=== PATIENT | female | born 1935 | race Caucasian/White ===

== ENCOUNTER 2019-06-15 06:53 | Inpatient (IN) ==
[2019-06-15] MEDS ORDERED: CATAPRES TAB 0.2 MG PO ONE (07:03)
[2019-06-15] MEDS ORDERED: OTBS NS XX ONE (07:10)
[2019-06-15] MEDS ORDERED: D50W ABBOJECT SYR ONE (07:13)
--- NOTE | 2019-06-15 07:13 | DR.DIZZY ---
HPI Time seen Time Seen by Provider: 06/15/19 07:02 Complaint Chief Complaint Doctor Comments: Pt presented for AMS. Pt unable to provide history. Family reports pt woke up this morning not feeling well, nauseated and AMS. Pt was taken of her BP medication a month ago and recently had tony boots removed. Family denies any fever. Chief Complaint:: AMS Nurses Notes Reviewed Nurses Notes Review: Yes Source History Provided: Family Member Mode of Arrival Mode of Arrival: Ambulatory Timing Came on: Suddenly Symptom Onset: Unknown Duration Duration: Since Onset Duration: Hours Context Stroke Symptoms: Acute confusion PMH PMH Past Medical History: Arthritis, Hypertension and Hypothyroidism Past Surgical History: Yes Surgical History: Ortho Surgery Family History Family Medical History: [place] Social History Do you use any recreational Drugs:: No Lives With: Family Lives Where: Home ROS Review of Systems Constitutional: Malaise and Weakness Gastrointestinal/Abdominal: Nausea Unable to Obtain Due To: Altered mental status PE Vital Signs Vitals: Temperature 99.1 F Pulse Rate [Right Radial] 78 Pulse Rate 78 Respiratory Rate 22 Blood Pressure [Right Arm] 187/88 Blood Pressure 212/111 O2 Sat by Pulse Oximetry 83 General Limitations: Altered Mental Status General Appearance: Lethargic, In Distress and Other (chronically ill appearing, volume overload) Head Head Exam: Normal Inspection and Normocephalic Eyes Eye exam: Normal Appearance, PERRL (2mm sluggish) and EOMI Pupils: Regular, Round: Bilateral Sclera/Conjunctival: Normal Inspection: Bilateral ENT ENT Exam: Normal Exam and Mucous Membranes Dry Neck Neck Exam: Normal Inspection Respiratory Respiratory Exam: negative Normal Lung Sounds Bilat and Respiratory Distress Respiratory Exam: Bilateral: Clear to Auscultation, Left: Decreased Breath Sounds and Lower: Decreased Breath Sounds Cardiovascular Cardiovascular Exam: Regular Rate, Normal Rhythm and Normal Heart Sounds Abdominal Exam Abdominal Exam: Normal Bowel Sounds, Soft and Dimnished Bowel Sounds Extremeties Extremities Exam: Edema (ble) Neurologic Neurological Exam: Alert and Other (respond to verbal stimuli, does not follow commands) Patient Oriented To: negative Person, Place and Time Speech: Other (uanble to access) Cerebellar Function: Other (unable to access) Psychiatric Psychiatric Exam: Other (uable to access) Skin Skin Exam: Warm, Dry and Intact MDM Additional Information Obtained Additional Information Obtained From: Old Records and Family Differential Diagnosis Differential Diagnosis: CVA, Dehydration, Dysrhythmia, Electrolyte disorder and Myocardial infarction COURSE Reevaluation 1st: Unchanged (BP still elevated. Pt lethargic. BNP 1330 with left pleural effusion) 2nd: Improved (BP improving. D/w results with family and pt and will admit) Consultation Consultation Comments: 08:[address] Kohli and will admit and seen in hospital Education/Counseling Education/Counseling: Patient, Family, Education and Counseling Educated On: Treatment, Diagnosis, Prognosis and Needs for Follow Up (pcp and manager hematology) ROR Labs Reviewed Laboratory Results Reviewed?: Yes Result Diagrams: 06/15/19 07:09 06/15/19 07:09 Laboratory: WBC 6.7 X10^3/uL (3.6-10.0) 06/15/19 07:09 RBC 3.47 X10^6/uL (3.5-5.4) L 06/15/19 07:09 Hgb 10.8 g/dL (12.0-16.0) L 06/15/19 07:09 Hct 30.9 % (36.0-47.0) L 06/15/19 07:09 MCV 88.9 fL (80.0-100.0) 06/15/19 07:09 MCH 31.0 pg (27.0-34.0) 06/15/19 07:09 MCHC 34.9 g/dL (33.0-35.0) 06/15/19 07:09 RDW 12.8 % (11.6-16.5) 06/15/19 07:09 Plt Count 294 X10^3/uL (150.0-450.0) 06/15/19 07:09 MPV 8.2 fL (7.4-11.0) 06/15/19 07:09 Neut % (Auto) 52.2 % (42.0-75.0) 06/15/19 07:09 Lymph % (Auto) 35.1 % (21.0-51.0) 06/15/19 07:09 [place] % (Auto) 9.4 % (0.0-13.0) 06/15/19 07:09 Eos % (Auto) 1.9 % (0.9-2.9) 06/15/19 07:09 Baso % (Auto) 1.4 % (0.2-1.0) H 06/15/19 07:09 Neut # (Auto) 3.5 x10^3/uL (2.2-4.8) 06/15/19 07:09 Lymph # (Auto) 2.4 X10^3/uL (1.3-2.9) 06/15/19 07:09 [place] # (Auto) 0.6 x10^3/uL (0.3-0.8) 06/15/19 07:09 Eos # (Auto) 0.1 x10^3/uL (0.0-0.2) 06/15/19 07:09 Baso # (Auto) 0.1 X10^3/uL (0.0-0.1) 06/15/19 07:09 Absolute Nucleated RBC 0.0 /100WBC 06/15/19 07:09 PT 13.9 SECONDS (11.8-14.3) 06/15/19 07:09 INR Target Range - 06/15/19 07:09 INR 1.11 (0.8-1.3) 06/15/19 07:09 Sodium 142 mmol/L (136-145) 06/15/19 07:09 Corrected Sodium TNP 06/15/19 07:09 Potassium 3.5 mmol/L (3.5-5.1) 06/15/19 07:09 Chloride 106 mmol/L (98-107) 06/15/19 07:09 Carbon Dioxide 23.9 mmol/L (21-32) 06/15/19 07:09 BUN 14 mg/dL (7-18) 06/15/19 07:09 Creatinine 0.91 mg/dL (0.55-1.02) 06/15/19 07:09 Est GFR (MDRD) Af Amer > 60 (>60) 06/15/19 07:09 Est GFR (MDRD) Non-Af > 60 (>60) 06/15/19 07:09 Glucose 95 mg/dL (65-99) 06/15/19 07:09 POC Glucose (mg/dL) 78 mg/dL (65-99) 06/15/19 07:11 Lactic Acid 1.1 mmol/L (0.4-2.0) 06/15/19 07:14 Calcium 9.3 mg/dL (8.5-10.1) 06/15/19 07:09 Corrected Calcium 9.9 mg/dL (8.5-10.1) 06/15/19 07:09 Total Bilirubin 0.50 mg/dL (0.2-1.0) 06/15/19 07:09 AST 33 Units/L (15-37) 06/15/19 07:09 ALT 16 Units/L (12-78) 06/15/19 07:09 Alkaline Phosphatase 153 Units/L (46-116) H 06/15/19 07:09 Ammonia < 10 umol/L (11-32) L 06/15/19 07:14 Troponin I < 0.02 ng/mL (0-1.5) 06/15/19 07:09 B-Natriuretic Peptide 1330 pg/mL (0-79) H* 06/15/19 07:14 Total Protein 7.6 g/dL (6.4-8.2) 06/15/19 07:09 Albumin 3.3 g/dL (3.4-5.0) L 06/15/19 07:09 Globulin 4.3 g/dL (2.5-4.5) 06/15/19 07:09 Albumin/Globulin Ratio 0.8 Ratio (1.1-2.1) L 06/15/19 07:09 TSH 3rd Generation 3.795 uIU/mL (0.358-3.74) H 06/15/19 07:09 Specimen Type Catherized urine 06/15/19 08:17 Urine Color Yellow (YELLOW) 06/15/19 08:17 Urine Appearance Cloudy (CLEAR) 06/15/19 08:17 Urine pH 6.0 (5.0 - 8.0) 06/15/19 08:17 Ur Specific [place] 1.010 (1.000-1.030) 06/15/19 08:17 Urine Protein Negative (NEGATIVE) 06/15/19 08:17 Urine Glucose (UA) Negative (NEGATIVE) 06/15/19 08:17 Urine Ketones Negative (NEGATIVE) 06/15/19 08:17 Urine Occult Blood 2+ (NEGATIVE) 06/15/19 08:17 Urine Nitrite Positive (NEGATIVE) 06/15/19 08:17 Urine Bilirubin Negative (NEGATIVE) 06/15/19 08:17 Urine Urobilinogen Normal (NORMAL) 06/15/19 08:17 Ur Leukocyte Esterase 2+ (NEGATIVE) 06/15/19 08:17 Urine RBC 5-10 /HPF (0-3) A 06/15/19 08:17 Urine WBC 10-20 /HPF (0-5) A 06/15/19 08:17 Ur Squamous Epith Cells Rare /HPF (NEGATIVE) 06/15/19 08:17 Urine Bacteria 3+ /HPF (NEGATIVE) 06/15/19 08:17 Ur Culture Indicated? Yes/culture set up 06/15/19 08:17 Other Results Comments: POG Glu 78, WBC 6.7 BMP wnl BNP 1330 TSh 3.795 trop neg Lactic 1.1 nml UA =nitrites, WBC 10-20 CT head: NAF XRAY XRAY Interpreted by: Radiologist XRAY Findings: Abd serice: left pleural effusion EKG Rate: 87 [place]: Normal Rhythm: NSR Block: IVCD Hypertrophy: None ST: Nonsp (QTc 544) Opioid Opioid Risk Tool Total: 0 Total Score Risk Category: Low Risk Copyright: Artis MARCO predicting aberrant behaviors Diagnosis Discharge Problem: CHF (congestive heart failure), Hypertensive emergency, Pleural effusion, left, Encephalopathy, hypertensive, Acute UTI (urinary tract infection) Instructions Forms: Excuse From Work ADDITIONAL NOTES Additional Notes Additional Notes: I have personally reviewed your medications, lab results, imaging and time was spent discussion results. Patient educated on their health issue. They verbalized their understanding and agreed with plan of care. Condition: Fair, but guarded Disposition: Admit
[2019-06-15] MEDS ORDERED: NS 1000 ML 1,000 ML IV ONE (07:15)
[2019-06-15] MEDS ORDERED: DEXTROSE 25% IV ONE ×2 (07:15→07:21)
[2019-06-15 07:26] LABS: BASOPHILS # (AUTO) 0.1 X10^3/uL (0.0-0.1); BASOPHILS % (AUTO) 1.4 % (0.2-1.0); EOSINOPHILS # (AUTO) 0.1 x10^3/uL (0.0-0.2); EOSINOPHILS % (AUTO) 1.9 % (0.9-2.9); HEMATOCRIT 30.9 % (36.0-47.0); HEMOGLOBIN 10.8 g/dL (12.0-16.0); LYMPHOCYTES # (AUTO) 2.4 X10^3/uL (1.3-2.9); LYMPHOCYTES % (AUTO) 35.1 % (21.0-51.0); MEAN CORPUSCULAR HGB CONC 34.9 g/dL (33.0-35.0); MEAN CORPUSCULAR VOLUME 88.9 fL (80.0-100.0); MEAN PLATELET VOLUME 8.2 fL (7.4-11.0); MONOCYTES # (AUTO) 0.6 x10^3/uL (0.3-0.8); MONOCYTES % (AUTO) 9.4 % (0.0-13.0); NEUTROPHILS # (AUTO) 3.5 x10^3/uL (2.2-4.8); NEUTROPHILS % (AUTO) 52.2 % (42.0-75.0); PLATELET COUNT 294 X10^3/uL (150.0-450.0); RED BLOOD COUNT 3.47 X10^6/uL (3.5-5.4); RED CELL DISTRIBUTION WIDTH 12.8 % (11.6-16.5); WHITE BLOOD COUNT 6.7 X10^3/uL (3.6-10.0)
[2019-06-15] MEDS ORDERED: NS 1000 ML 1,000 ML ONE (07:29)
[2019-06-15] MEDS ORDERED: ZOFRAN INJ 4 MG VIAL ONE (07:34)
[2019-06-15] MEDS ORDERED: ZOFRAN INJ 4 MG VIAL IVP ONE (07:34)
[2019-06-15 07:47] LABS: ALANINE AMINOTRANSFERASE 16 Units/L (12-78); ALBUMIN 3.3 g/dL (3.4-5.0); ALKALINE PHOSPHATASE 153 Units/L (46-116); ASPARTATE AMINO TRANSFERASE 33 Units/L (15-37); BLOOD UREA NITROGEN 14 mg/dL (7-18); CALCIUM 9.3 mg/dL (8.5-10.1); CARBON DIOXIDE 23.9 mmol/L (21-32); CHLORIDE 106 mmol/L (98-107); COR CA(FOR HYPOALB) 9.9 mg/dL (8.5-10.1); CREATININE 0.91 mg/dL (0.55-1.02); SODIUM 142 mmol/L (136-145); TOTAL PROTEIN 7.6 g/dL (6.4-8.2); TROPONIN I < 0.02 ng/mL (0-1.5); eGFR NON BLACK RACES > 60 (>60)
--- NOTE | 2019-06-15 07:49 | RAD ---
History: Abdominal pain Study: Acute abdominal series Comparison: None Findings: There is moderate cardiomegaly. There are Pam B lines in there is vascular congestion. There is a moderate left pleural effusion. There is severe dextroscoliosis of the lumbar spine with associated degenerative changes. Partially visualized is a total left hip prosthesis that appears well seated. The bowel gas pattern is unremarkable. There is a small calculus overlying the outline of the left kidney. There is vascular calcification without evidence for aortic aneurysm. There are surgical clips in the left axilla. Impression: 1. Justify art failure with a moderate left pleural effusion 2. Probable small left renal calculus 3. Severe dextroscoliosis of the lumbar spine and associated degenerative changes Reported By:
--- NOTE | 2019-06-15 07:50 | CT ---
History: Altered mental status Study: CT head without contrast. Sagittal and coronal reformations were provided. Comparison: March 25, 2016 Findings: The ventricles and sulci are diffusely enlarged without mass effect. There is moderately severe diffuse periventricular white matter low attenuation. There is no hemorrhage or mass or edema or subdural collection of fluid. The calvarium is intact and the paranasal sinuses are clear. 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 No acute intracranial disease demonstrated. Reported By:
[2019-06-15 07:59] LABS: AMMONIA < 10 umol/L (11-32)
[2019-06-15] MEDS ORDERED: LASIX IVP ONE ×2 (07:59→08:14)
[2019-06-15] MEDS ORDERED: APRESOLINE INJ 20 MG VIAL IVP ONE (08:01)
[2019-06-15] MEDS ORDERED: LASIX ONE (08:14)
[2019-06-15] MEDS: NS 1000 ML 1,000 ML IV SCH ×2 (08:18→21:04)
[2019-06-15 08:24] LABS: BILIRUBIN,URINE NEGATIVE (NEGATIVE); BLOOD/HEMOGLOBIN,URINE 2+ (NEGATIVE); GLUCOSE, URINE NEGATIVE (NEGATIVE); KETONES,URINE NEGATIVE (NEGATIVE); LEUKOCYTE ESTERASE ,URINE 2+ (NEGATIVE); NITRITES,URINE POSITIVE (NEGATIVE); PROTEIN,URINE NEGATIVE (NEGATIVE); UROBILINOGEN,URINE NORMAL (NORMAL)
[2019-06-15 08:25] LABS: APPEARANCE,URINE CLOUDY (CLEAR); COLOR,URINE YELLOW (YELLOW)
[2019-06-15 08:30] LABS: BACTERIA,URINE 3+ /HPF (NEGATIVE); SQUAMOUS EPITHELIAL CELL,UR RARE /HPF (NEGATIVE)
[2019-06-15] MEDS ORDERED: NORMODYNE INJ 20 MG VIAL IVP PRN (08:37)
[2019-06-15 09:24] LABS: ABG BASE EXCESS 5.1 mmol/L (-2.0-2.0); ABG HCO3 29.9 mmol/L (22-26)
[2019-06-15 09:25] LABS: ABG ALLEN TEST POS
[2019-06-15] MEDS ORDERED: ROCEPHIN VIAL 1 GRAM IVP SCH (09:30)
[2019-06-15] MEDS ORDERED: APRESOLINE INJ 20 MG VIAL ONE (09:32)
[2019-06-15] MEDS ORDERED: RESTORIL CAP 15 MG PO PRN (09:52)
[2019-06-15] MEDS: FORTAZ or TAZICEF VIAL INJ IVP SCH ×2 (13:16→21:04)
[2019-06-15] MEDS: HYDROCHLOROTHIAZIDE 25 MG TAB PO SCH (13:16)
[2019-06-15] MEDS ORDERED: PHARMACY CONSULT - DOSE _____ XX SCH (14:00)
[2019-06-15] MEDS ORDERED: ULTRAM ONE (16:47)
[2019-06-15] MEDS: ULTRAM PO PRN (16:49)
[2019-06-15] MEDS: CRESTOR TAB 10 MG PO SCH (20:41)
[2019-06-15] MEDS: LASIX IVP SCH (20:42)
[2019-06-16 05:14] LABS: BASOPHILS # (AUTO) 0.1 X10^3/uL (0.0-0.1); BASOPHILS % (AUTO) 1.2 % (0.2-1.0); EOSINOPHILS # (AUTO) 0.2 x10^3/uL (0.0-0.2); EOSINOPHILS % (AUTO) 2.2 % (0.9-2.9); HEMATOCRIT 29.3 % (36.0-47.0); HEMOGLOBIN 9.9 g/dL (12.0-16.0); LYMPHOCYTES # (AUTO) 2.1 X10^3/uL (1.3-2.9); LYMPHOCYTES % (AUTO) 29.3 % (21.0-51.0); MEAN CORPUSCULAR HEMOGLOBIN 30.7 pg (27.0-34.0); MEAN CORPUSCULAR HGB CONC 33.9 g/dL (33.0-35.0); MEAN CORPUSCULAR VOLUME 90.6 fL (80.0-100.0); MEAN PLATELET VOLUME 8.7 fL (7.4-11.0); MONOCYTES # (AUTO) 0.6 x10^3/uL (0.3-0.8); NEUTROPHILS # (AUTO) 4.1 x10^3/uL (2.2-4.8); NEUTROPHILS % (AUTO) 58.3 % (42.0-75.0); PLATELET COUNT 273 X10^3/uL (150.0-450.0); RED BLOOD COUNT 3.23 X10^6/uL (3.5-5.4); RED CELL DISTRIBUTION WIDTH 12.8 % (11.6-16.5); WHITE BLOOD COUNT 7.1 X10^3/uL (3.6-10.0)
[2019-06-16 05:17] LABS: BLOOD UREA NITROGEN 14 mg/dL (7-18); CALCIUM 8.4 mg/dL (8.5-10.1); CARBON DIOXIDE 31.7 mmol/L (21-32); CHLORIDE 104 mmol/L (98-107); CREATININE 1.11 mg/dL (0.55-1.02); SODIUM 142 mmol/L (136-145); eGFR NON BLACK RACES 50 (>60)
[2019-06-16] MEDS: FORTAZ or TAZICEF VIAL INJ IVP SCH ×3 (06:00→21:14)
[2019-06-16] MEDS ORDERED: POTASSIUM CHL 60 MEQ/NS 0.45% 500 ML IV PRN (06:02)
[2019-06-16] MEDS ORDERED: POTASSIUM CHLORIDE LIQ 20 MEQ UDC PO PRN (06:02)
[2019-06-16] MEDS ORDERED: MICRO K EXTEN CAP 10 MEQ PO PRN (06:02)
[2019-06-16] MEDS ORDERED: POTASSIUM CHL 40 MEQ/NS 0.45% 500 ML IV PRN (06:02)
[2019-06-16] MEDS ORDERED: K-RIDER 10 MEQ/NS 100 ML 10 MEQ/100 ML BAG IV PRN (06:02)
[2019-06-16 07:41] LABS: CREATINE KINASE 33 Units/L (26-192); CREATINE KINASE MB < 1.0 ng/mL (0-4.0); TROPONIN I 0.07 ng/mL (0-1.5)
[2019-06-16 08:10] VITALS: BMI 23.0
[2019-06-16] MEDS: HYDROCHLOROTHIAZIDE 25 MG TAB PO SCH (08:49)
[2019-06-16] MEDS: KLOR-CON PO PRN (08:50)
[2019-06-16] MEDS: LASIX IVP SCH ×2 (10:27→21:14)
[2019-06-16 14:01] LABS: CKMB % 3.6 % (<4); CREATINE KINASE 28 Units/L (26-192); CREATINE KINASE MB < 1.0 ng/mL (0-4.0); TROPONIN I 0.02 ng/mL (0-1.5)
[2019-06-16] MEDS: NS 1000 ML 1,000 ML IV SCH ×2 (14:30→20:30)
[2019-06-16] MEDS ORDERED: SYNTHROID 50 mcg TAB PO SCH (17:00)
[2019-06-16] MEDS ORDERED: SYNTHROID 50 mcg TAB ONE (17:30)
[2019-06-16 19:54] LABS: CKMB % 4.2 % (<4); CREATINE KINASE 24 Units/L (26-192); CREATINE KINASE MB < 1.0 ng/mL (0-4.0); TROPONIN I 0.02 ng/mL (0-1.5)
[2019-06-16] MEDS: NEURONTIN CAP 100 MG PO SCH (21:12)
[2019-06-16] MEDS: CRESTOR TAB 10 MG PO SCH (21:12)
[2019-06-16] MEDS: VOLTAREN 1 % GEL MULTI DOSE TUBE TOP SCH (21:18)
[2019-06-16] MEDS: ULTRAM PO PRN (22:35)
[2019-06-16] MEDS: PATIENT'S HOME MEDICATION EXT SCH (23:24)
[2019-06-17] MEDS: NS 1000 ML 1,000 ML IV SCH ×2 (01:59→16:59)
[2019-06-17 05:01] LABS: BASOPHILS # (AUTO) 0.1 X10^3/uL (0.0-0.1); BASOPHILS % (AUTO) 0.9 % (0.2-1.0); EOSINOPHILS # (AUTO) 0.3 x10^3/uL (0.0-0.2); EOSINOPHILS % (AUTO) 3.3 % (0.9-2.9); HEMATOCRIT 31.4 % (36.0-47.0); HEMOGLOBIN 10.6 g/dL (12.0-16.0); LYMPHOCYTES # (AUTO) 2.5 X10^3/uL (1.3-2.9); MEAN CORPUSCULAR HEMOGLOBIN 30.6 pg (27.0-34.0); MEAN CORPUSCULAR HGB CONC 33.8 g/dL (33.0-35.0); MEAN CORPUSCULAR VOLUME 90.4 fL (80.0-100.0); MEAN PLATELET VOLUME 8.7 fL (7.4-11.0); MONOCYTES # (AUTO) 0.7 x10^3/uL (0.3-0.8); MONOCYTES % (AUTO) 8.4 % (0.0-13.0); NEUTROPHILS # (AUTO) 4.5 x10^3/uL (2.2-4.8); NEUTROPHILS % (AUTO) 56.4 % (42.0-75.0); PLATELET COUNT 265 X10^3/uL (150.0-450.0); RED BLOOD COUNT 3.47 X10^6/uL (3.5-5.4); RED CELL DISTRIBUTION WIDTH 12.8 % (11.6-16.5)
[2019-06-17 05:09] LABS: ALANINE AMINOTRANSFERASE 11 Units/L (12-78); ALBUMIN 2.7 g/dL (3.4-5.0); ALKALINE PHOSPHATASE 136 Units/L (46-116); ASPARTATE AMINO TRANSFERASE 25 Units/L (15-37); BLOOD UREA NITROGEN 20 mg/dL (7-18); CALCIUM 8.7 mg/dL (8.5-10.1); CHLORIDE 102 mmol/L (98-107); COR CA(FOR HYPOALB) 9.7 mg/dL (8.5-10.1); CREATININE 1.27 mg/dL (0.55-1.02); SODIUM 140 mmol/L (136-145); TOTAL PROTEIN 6.8 g/dL (6.4-8.2); eGFR NON BLACK RACES 43 (>60)
--- NOTE | 2019-06-17 05:52 | RAD ---
Chest radiograph, single AP view History: Shortness of breath Comparison: None Findings: There is cardiomegaly with pulmonary vasculature congestion. There are bibasilar pleural parenchymal opacities, most compatible with pleural effusions and adjacent atelectasis or edema. Superimposed infectious process is not excluded. No evidence of pneumothorax. Conclusion: Findings of CHF with bibasilar pleural effusions and adjacent atelectasis, edema, or pneumonia. Reported By:
[2019-06-17] MEDS: FORTAZ or TAZICEF VIAL INJ IVP SCH ×2 (06:01→21:26)
[2019-06-17] MEDS: K-DUR TAB 20 MEQ PO PRN (06:23)
[2019-06-17] MEDS ORDERED: SYNTHROID 50 mcg TAB PO SCH (07:00)
[2019-06-17] MEDS: NEURONTIN CAP 100 MG PO SCH ×2 (08:59→21:27)
[2019-06-17] MEDS: VOLTAREN 1 % GEL MULTI DOSE TUBE TOP SCH (09:00)
[2019-06-17] MEDS: HYDROCHLOROTHIAZIDE 25 MG TAB PO SCH (09:00)
[2019-06-17] MEDS: LASIX IVP SCH ×2 (09:00→21:26)
--- NOTE | 2019-06-17 09:14 | CT ---
HISTORY: Altered mental status and hypertension. Noncontrast head CT examination. Comparison: Head CT exam dated 06/15/2019. Technique: Multiple axial images of the brain were obtained from the skull base to the vertex without administration of IV contrast. Findings: There is moderate sulcal and cisternal prominence as well as atherosclerotic change in the proximal intracranial carotid and vertebral arteries, which is not out of proportion to the patient's stated age. There is diffuse CT density alteration seen in the periventricular white matter of the high and mid-convexity, which is likely in the setting of small vessel disease and not out of proportion to the patient's stated age. There is mild bilateral ex vacuo ventricular dilatation without evidence for hydrocephalus or herniation syndrome. No midline shift is evident. No acute intraparenchymal hemorrhage or mass can be identified. No extra-axial fluid collections are seen. No alteration in the attenuation of the brain parenchyma can be identified to suggest acute or subacute ischemic change. The extracranial structures are unremarkable. IMPRESSION: 1. No acute intracranial changes can be identified. However, if the patients symptoms are clinically & neurologically concerning for an acute ischemic event, then MR imaging of the brain with DWI sequencing would likely be beneficial to exclude an acute CVA. 2. Age-appropriate intra-cranial changes of advancing age. Reported By:
[2019-06-17] MEDS ORDERED: ROCEPHIN VIAL 1 GRAM ONE (10:52)
[2019-06-17] MEDS: ELIQUIS PO SCH ×2 (10:58→21:27)
[2019-06-17] MEDS: ALBUMIN HUMAN 25%- 100 ML 100 ML IV SCH (10:59)
--- NOTE | 2019-06-17 14:06 | DR.H&P ---
H&P - History & Physical for Day of: H&P Date: 06/15/19 - Chief Complaint Chief Complaint: NAUSEA, CONFUSION, SOB, LOWER EXTREMITY SWELLING - History of Present Illness History of Present Illness: IS A 84 YEAR OLD PATIENT OF OURS WHO PRESENTED TO THE ER WITH FAMILY REPORTING THAT PATIENT HAS BEEN CONFUSED. THEY REPORT THAT SHE WOKE UP THIS MONRING NOT FEELING WELL, NAUSEATED, AND CONFUSED. ON ARRIVAL TO THE ER, PATIENT IS LETHARGIC. SHE IS NOTED WITH 2+ PITTING EDEMA TO LOWER LOWER EXTREMITIES WELL WARMTH AND ERYTHEMA TO LEFT LOWER EXTREMITY. THERE IS A SMALL WOUND WITH PURULENT DRAINAGE. SHE REPORTS SHORTNESS OF BREATH. HER VITALS WERE 99.1-78-18-89%RA-212/111. LABS WERE OBTAINED. ABNORMAL LAB VALUES INCLUDE THE FOLLOWING: RBC 3.47, HGB 10.8, HCT 30.9, ALK PHOS 153, ALBUMIN 3.3, TSH 3RD GEN 3.795. AN ABG WAS OBTAINED AND REVEALED: PH 7.440, PC02 44.0, P02 62.0, HC03 29.9, 02 SATURATION 92.0, BASE EXCESS 5.1. A URINALYSIS WAS OBTAINED AND REVEALED: RBC 5-10, WBC 10-20, BACTERIA 3+, LEUKOCYTES 2+, NITRITE POSITIVE. URINE CULTURE PENDING. EKG WAS OBTAINED AND REVEALED: SINUS RHYTHM WITH HR 87. AN ABDOMEN XRAY WAS OBTAINED AND REVEALED: Congestive heart failure with a moderate left pleural effusion. Probable small left renal calculus. Severe dextroscoliosis of the lumbar spine and associated degenerative changes. 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 No acute intracranial disease demonstrated. SHE WAS GIVEN ROCEPHIN 1G IV X 1, APRESOLINE 10MG IV X 1, LASIX 60MG IV X 1, ZOFRAN 4MG IV X 1, AND A NORMAL SALINE BOLUS IN THE ER. BLOOD PRESSURE DECREASED TO 160/96. SHE WAS ADMITTED FOR FURTHER EVALUATION AND TREATMENT OF CONGESTIVE HEART FAILURE, HYPERTENSIVE EMERGENCY, URINARY TRACT INFECTION, AND ALTERED MENTAL STATUS. SHE WAS STARTED ON NS AT 50ML/HR, LASIX 40MG IV BID, ROCEPHIN 1G IV DAILY, FORTAZ 1G IV Q8H, AND HOME MEDICATIONS WERE RESUMED. WE PLAN TO FOLLOW UP WITH AM LABS AND CHEST XRAY AND CONTINUE TO MONITOR. - Past Medical History Past Medical History: Hypertension, Hypothyroidism, Arthritis - Past Surgical History Surgical History: Mastectomy - Family History Family Medical History: Hypertension - Social History Does patient currently use any type of tobacco product: No Have you used tobacco products in the last 12 months: No Type of Tobacco Use: None Does any household member use tobacco: No Alcohol Use: None Drug Use: None - Medications Home Medications: codeine Allergy (Verified 06/15/19 07:18) CONTINUE taking the following medications fluocinonide 0.05 % TOPICAL QHS 06/15/19 [History] levothyroxine 1 tab PO DAILY 06/15/19 [History] diclofenac sodium 1 g TOPICAL BID 06/16/19 [History] gabapentin 100 mg PO DAILY 06/16/19 [History] gabapentin 200 mg PO QHS 06/16/19 [History] - Review of Systems Constitutional: Weakness, Malaise Eyes: No Symptoms Reported ENT: No Symptoms Reported Respiratory: Shortness of Breath, SOB with Excertion Cardiovascular: Edema (LOWER EXTREMITY 2+ PITTING EDEMA ) Gastrointestinal: No Symptoms Reported Genitourinary: No Symptoms Reported Musculoskeletal: Leg Pain Skin: See HPI, Wound (LLE WOUND WITH PURULENT DRAINAGE ) Neurological: Weakness, Confusion - Physical Exam Vital Signs: Temperature 97.7 F Pulse Rate [Right Radial] 71 Pulse Rate 81 Respiratory Rate 18 Blood Pressure [Left Arm] 177/81 Blood Pressure [Right Arm] 140/66 Blood Pressure 212/111 O2 Sat by Pulse Oximetry 99 Oriented: Person Eyes: Normal Ear: Normal Nose: Normal Throat: Normal Respiratory: Diminished Throughout Cardiovascular: Normal. negative: S3, S4, Murmur : Normal Auscultation: Bowel Sounds: Normal Palpation: Normal Tenderness: Normal Skin: Red (LEFT LOWER EXTREMITY ), Tender, Hot, Wound Musculoskeletal: Normal Psychiatric: Other (CONFUSION ) Mood Description: Calm Affect: Normal Speech Pattern: Clear - Assessment/Plan (1) CHF (congestive heart failure) Qualifiers: Heart failure type: unspecified Heart failure chronicity: acute on chronic Qualified Code(s): I50.9 - Heart failure, unspecified Status: Acute Plan: LASIX 40MG IV BID, SUPPLEMENTAL OXYGEN, CONTINUE TO MONITOR (2) Acute UTI (urinary tract infection) Status: Acute Plan: ROCEPHIN 1G IV DAILY, FORTAZ 1G IV Q8H, CONTINUE TO MONITOR (3) Hypertensive emergency Status: Acute Plan: CONTINUE HOME MEDS (4) Altered mental status Qualifiers: Altered mental status type: transient alteration of awareness Qualified Code(s): R40.4 - Transient alteration of awareness Status: Acute - Allergies Allergies/Adverse Reactions: Allergies Allergy/AdvReac Type Severity Reaction Status Date / Time codeine Allergy Verified 06/15/19 07:18
[2019-06-17] MEDS: SYNTHROID 50 mcg TAB PO SCH (16:59)
[2019-06-17] MEDS ORDERED: ZESTRIL TAB 10 MG PO SCH (21:00)
[2019-06-17] MEDS ORDERED: PATIENT'S HOME MEDICATION RIGHTEYE SCH ×2 (21:00)
[2019-06-17] MEDS: CRESTOR TAB 10 MG PO SCH (21:27)
[2019-06-17] MEDS: PATIENT'S HOME MEDICATION EXT SCH ×3 (21:29)
[2019-06-17] MEDS: PATIENT'S HOME MEDICATION TOP SCH (21:29)
[2019-06-18] MEDS: ELIQUIS PO SCH ×3 (01:16→20:42)
[2019-06-18 04:50] LABS: BASOPHILS % (AUTO) 0.5 % (0.2-1.0); EOSINOPHILS # (AUTO) 0.3 x10^3/uL (0.0-0.2); EOSINOPHILS % (AUTO) 3.6 % (0.9-2.9); HEMATOCRIT 33.2 % (36.0-47.0); HEMOGLOBIN 11.2 g/dL (12.0-16.0); LYMPHOCYTES # (AUTO) 2.3 X10^3/uL (1.3-2.9); LYMPHOCYTES % (AUTO) 31.5 % (21.0-51.0); MEAN CORPUSCULAR HEMOGLOBIN 30.6 pg (27.0-34.0); MEAN CORPUSCULAR HGB CONC 33.7 g/dL (33.0-35.0); MEAN PLATELET VOLUME 8.8 fL (7.4-11.0); MONOCYTES # (AUTO) 0.7 x10^3/uL (0.3-0.8); MONOCYTES % (AUTO) 8.9 % (0.0-13.0); NEUTROPHILS # (AUTO) 4.1 x10^3/uL (2.2-4.8); NEUTROPHILS % (AUTO) 55.5 % (42.0-75.0); PLATELET COUNT 267 X10^3/uL (150.0-450.0); RED BLOOD COUNT 3.65 X10^6/uL (3.5-5.4); RED CELL DISTRIBUTION WIDTH 12.5 % (11.6-16.5); WHITE BLOOD COUNT 7.3 X10^3/uL (3.6-10.0)
[2019-06-18 05:08] LABS: ALANINE AMINOTRANSFERASE 10 Units/L (12-78); ALBUMIN 3.4 g/dL (3.4-5.0); ALKALINE PHOSPHATASE 130 Units/L (46-116); ASPARTATE AMINO TRANSFERASE 22 Units/L (15-37); BLOOD UREA NITROGEN 25 mg/dL (7-18); CALCIUM 9.2 mg/dL (8.5-10.1); CARBON DIOXIDE 34.1 mmol/L (21-32); CHLORIDE 96 mmol/L (98-107); CREATININE 1.14 mg/dL (0.55-1.02); SODIUM 138 mmol/L (136-145); TOTAL PROTEIN 7.8 g/dL (6.4-8.2); eGFR NON BLACK RACES 48 (>60)
[2019-06-18] MEDS: KLOR-CON PO PRN (05:31)
[2019-06-18] MEDS: NS 1000 ML 1,000 ML IV SCH ×2 (05:32→20:42)
--- NOTE | 2019-06-18 06:14 | RAD ---
HISTORY: Shortness of breath Study: Chest AP portable Comparison: 06/17/2019 Findings: Patient is rotated to the left. The heart remains enlarged. Mild pulmonary vascular congestion is identified. Right pleural effusion is unchanged. Increased density is present in the retrocardiac area of the left lower lobe which could be due to pleural fluid, atelectasis, infiltrate or combination. The bony thorax is unremarkable. IMPRESSION: Continued cardiomegaly with mild pulmonary venous congestion no No change right pleural effusion Persistent density retrocardiac area left lower lobe. Differential diagnosis as above Reported By:
[2019-06-18] MEDS: FORTAZ or TAZICEF VIAL INJ IVP SCH (08:48)
[2019-06-18] MEDS: LASIX IVP SCH ×2 (08:49→20:42)
[2019-06-18] MEDS: HYDROCHLOROTHIAZIDE 25 MG TAB PO SCH (08:49)
[2019-06-18] MEDS: NEURONTIN CAP 100 MG PO SCH ×2 (08:50→20:43)
[2019-06-18] MEDS: ALBUMIN HUMAN 25%- 100 ML 100 ML IV SCH (08:51)
--- NOTE | 2019-06-18 11:12 | PCM.PROG ---
Progress Note - Progress Note for Day of Date of Exam: 06/16/19 - Subjective Subjective: WAS ADMITTED FOR TREATMENT OF CONGESTIVE HEART FAILURE, HYPERTENSIVE EMERGENCY, URINARY TRACT INFECTION, AND ALTERED MENTAL STATUS. TODAY, SHE IS ALERT AND ORIENTED, LYING IN BED ON MORNING ROUNDS. SHE CONTINUES WITH COMPLAINTS OF SHORTNESS OF BREATH AND CONFUSION TODAY. ON EXAMINATION, HEART IS REGULAR IN RATE AND RHYTHM. BILATERAL LUNGS RE NOTED WITH SCATTERED WHEEZING THROUGHOUT. ABDOMEN IS ROUND, SOFT, AND NON-TENDER WITH NORMAL BOWEL SOUNDS NOTED IN ALL QUADRANTS. BLE ARE NOTED WITH 2+ PITTING EDEMA. LEFT LEG CONTINUES WITH ERYTHEMA AND WARMTH. HER VITALS THIS MORNING ARE: 97.6-78-18-97%-170/84. LABS WERE OBTAINED. ABNORMAL LAB VALUES INCLUDE THE FOLLOWING: RBC 2.32, HGB 9.9, HCT 29.3, POTASSIUM 3.0, CREATININE 1.11, CALCIUM 8.4. CARDIAC ENZYMES ARE WITHIN NORMAL LIMITS. A URINE CULTURE IS PENDING. AN ECHO WAS OBTAINED YESTERDAY AND REVEALED AN EJECTION FRACTION OF 53% WITH EVIDENCE OF MILD DIASTOLIC DYSFUNCTION. SHE IS CURRENTLY RECEIVING NS AT 50ML/HR, IV FORTAZ, LASIX 40MG IV BID, AND HOME MEDICATIONS WERE RESUMED. WE WILL START THE POTASSIUM PROTOCOL TODAY. OTHERWISE, WE PLAN TO FOLLOW UP WITH AM LABS AND CONTINUE TO MONITOR. - Past Medical Family Social History Past Med/Fam/Surg Hx: No changes since H&P Allergies: Allergies codeine Allergy (Verified 06/15/19 07:18) - Review of Systems ROS: No change since H&P - Vital Signs and I&O's Vital Signs: Temperature 98.3 F Pulse Rate [Right Radial] 80 Pulse Rate 81 Respiratory Rate 20 Blood Pressure [Left Arm] 177/81 Blood Pressure [Right Arm] 119/68 Blood Pressure 212/111 O2 Sat by Pulse Oximetry 98 Intake and Output: Intake & Output 06/15/19 06/16/19 06/17/19 06/18/19 11:59 11:59 11:59 11:59 Intake Total 842 / 842 1550 / 1550 1650 / 1650 Output Total 1650 / 1650 4150 / 4150 2475 / 2475 4200 / 4200 Balance -1650 / -1650 -3308 / -3308 -925 / -925 -2550 / -2550 - Physical Exam Oriented: Person Eyes: Normal Ear: Normal Nose: Normal Throat: Normal Respiratory: Generalized, Wheezes Cardiovascular: Normal. negative: S3, S4, Murmur : Normal Auscultation: Bowel Sounds: Normal Palpation: Normal Tenderness: Normal Skin: Red (LEFT LOWER EXTREMITY ), Tender, Hot, Wound Musculoskeletal: Normal Psychiatric: Other (CONFUSION ) Mood Description: Calm, Appropriate Affect: Normal Speech Pattern: Clear - Laboratory and Diagnostics Result Diagrams: 06/18/19 04:20 06/18/19 04:20 Labs: 06/16/19 16:20 Leg - Left Wound Culture - Preliminary 06/15/19 08:17 Urine,Catheterized Urine Culture - Final Escherichia Coli Laboratory WBC 7.3 X10^3/uL (3.6-10.0) 06/18/19 04:20 RBC 3.65 X10^6/uL (3.5-5.4) 06/18/19 04:20 Hgb 11.2 g/dL (12.0-16.0) L 06/18/19 04:20 Hct 33.2 % (36.0-47.0) L 06/18/19 04:20 MCV 91.0 fL (80.0-100.0) 06/18/19 04:20 MCH 30.6 pg (27.0-34.0) 06/18/19 04:20 MCHC 33.7 g/dL (33.0-35.0) 06/18/19 04:20 RDW 12.5 % (11.6-16.5) 06/18/19 04:20 Plt Count 267 X10^3/uL (150.0-450.0) 06/18/19 04:20 MPV 8.8 fL (7.4-11.0) 06/18/19 04:20 Neut % (Auto) 55.5 % (42.0-75.0) 06/18/19 04:20 Lymph % (Auto) 31.5 % (21.0-51.0) 06/18/19 04:20 [place] % (Auto) 8.9 % (0.0-13.0) 06/18/19 04:20 Eos % (Auto) 3.6 % (0.9-2.9) H 06/18/19 04:20 Baso % (Auto) 0.5 % (0.2-1.0) 06/18/19 04:20 Neut # (Auto) 4.1 x10^3/uL (2.2-4.8) 06/18/19 04:20 Lymph # (Auto) 2.3 X10^3/uL (1.3-2.9) 06/18/19 04:20 [place] # (Auto) 0.7 x10^3/uL (0.3-0.8) 06/18/19 04:20 Eos # (Auto) 0.3 x10^3/uL (0.0-0.2) H 06/18/19 04:20 Baso # (Auto) 0.0 X10^3/uL (0.0-0.1) 06/18/19 04:20 Absolute Nucleated RBC 0.0 /100WBC 06/18/19 04:20 PT 13.9 SECONDS (11.8-14.3) 06/15/19 07:09 INR Target Range - 06/15/19 07:09 INR 1.11 (0.8-1.3) 06/15/19 07:09 Sample Site Lr 06/15/19 09:16 ABG pH 7.440 (7.35-7.45) 06/15/19 09:16 ABG pCO2 44.0 mmHg (35.0-45.0) 06/15/19 09:16 ABG pO2 62.0 mmHg (80.0-100.0) L 06/15/19 09:16 ABG HCO3 29.9 mmol/L (22-26) H 06/15/19 09:16 ABG O2 Saturation 92.0 % (90-100) 06/15/19 09:16 ABG Base Excess 5.1 mmol/L (-2.0-2.0) H 06/15/19 09:16 Juve Test Pos 06/15/19 09:16 A-a Gradient 33.0 mmHg 06/15/19 09:16 FiO2 21.0 06/15/19 09:16 Blood Gas Comments Pt ehrb well. cdn 06/15/19 09:16 Sodium 138 mmol/L (136-145) 06/18/19 04:20 Corrected Sodium TNP 06/18/19 04:20 Potassium 3.2 mmol/L (3.5-5.1) L 06/18/19 04:20 Chloride 96 mmol/L (98-107) L 06/18/19 04:20 Carbon Dioxide 34.1 mmol/L (21-32) H 06/18/19 04:20 BUN 25 mg/dL (7-18) H 06/18/19 04:20 Creatinine 1.14 mg/dL (0.55-1.02) H 06/18/19 04:20 Est GFR (MDRD) Af Amer 58 (>60) L 06/18/19 04:20 Est GFR (MDRD) Non-Af 48 (>60) L 06/18/19 04:20 Glucose 98 mg/dL (65-99) 06/18/19 04:20 POC Glucose (mg/dL) 78 mg/dL (65-99) 06/15/19 07:11 Lactic Acid 1.1 mmol/L (0.4-2.0) 06/15/19 07:14 Calcium 9.2 mg/dL (8.5-10.1) 06/18/19 04:20 Corrected Calcium TNP 06/18/19 04:20 Magnesium 1.8 mg/dL (1.7-2.9) 06/18/19 04:20 Total Bilirubin 0.60 mg/dL (0.2-1.0) 06/18/19 04:20 AST 22 Units/L (15-37) 06/18/19 04:20 ALT 10 Units/L (12-78) L 06/18/19 04:20 Alkaline Phosphatase 130 Units/L (46-116) H 06/18/19 04:20 Ammonia < 10 umol/L (11-32) L 06/15/19 07:14 Creatine Kinase 24 Units/L (26-192) L 06/16/19 19:18 CK-MB (CK-2) < 1.0 ng/mL (0-4.0) 06/16/19 19:18 CK/CKMB % Calc 4.2 % (<4) 06/16/19 19:18 Troponin I 0.02 ng/mL (0-1.5) 06/16/19 19:18 B-Natriuretic Peptide 1330 pg/mL (0-79) H* 06/15/19 07:14 Total Protein 7.8 g/dL (6.4-8.2) 06/18/19 04:20 Albumin 3.4 g/dL (3.4-5.0) 06/18/19 04:20 Globulin 4.4 g/dL (2.5-4.5) 06/18/19 04:20 Albumin/Globulin Ratio 0.8 Ratio (1.1-2.1) L 06/18/19 04:20 TSH 3rd Generation 3.795 uIU/mL (0.358-3.74) H 06/15/19 07:09 Specimen Type Catherized urine 06/15/19 08:17 Urine Color Yellow (YELLOW) 06/15/19 08:17 Urine Appearance Cloudy (CLEAR) 06/15/19 08:17 Urine pH 6.0 (5.0 - 8.0) 06/15/19 08:17 Ur Specific [place] 1.010 (1.000-1.030) 06/15/19 08:17 Urine Protein Negative (NEGATIVE) 06/15/19 08:17 Urine Glucose (UA) Negative (NEGATIVE) 06/15/19 08:17 Urine Ketones Negative (NEGATIVE) 06/15/19 08:17 Urine Occult Blood 2+ (NEGATIVE) 06/15/19 08:17 Urine Nitrite Positive (NEGATIVE) 06/15/19 08:17 Urine Bilirubin Negative (NEGATIVE) 06/15/19 08:17 Urine Urobilinogen Normal (NORMAL) 06/15/19 08:17 Ur Leukocyte Esterase 2+ (NEGATIVE) 06/15/19 08:17 Urine RBC 5-10 /HPF (0-3) A 06/15/19 08:17 Urine WBC 10-20 /HPF (0-5) A 06/15/19 08:17 Ur Squamous Epith Cells Rare /HPF (NEGATIVE) 06/15/19 08:17 Urine Bacteria 3+ /HPF (NEGATIVE) 06/15/19 08:17 Ur Culture Indicated? Yes/culture set up 06/15/19 08:17 - Plan (1) CHF (congestive heart failure) Status: Acute Qualifiers: Heart failure type: unspecified Heart failure chronicity: acute on chronic Qualified Code(s): I50.9 - Heart failure, unspecified Plan: LASIX 40MG IV BID, SUPPLEMENTAL OXYGEN, CONTINUE TO MONITOR (2) Acute UTI (urinary tract infection) Status: Acute Plan: ROCEPHIN 1G IV DAILY, FORTAZ 1G IV Q8H, CONTINUE TO MONITOR (3) Hypertensive emergency Status: Acute Plan: CONTINUE HOME MEDS (4) Altered mental status Status: Acute Qualifiers: Altered mental status type: transient alteration of awareness Qualified Code(s): R40.4 - Transient alteration of awareness (5) Hypokalemia Status: Acute Plan: POTASSIUM REPLACEMENT PER PROTOCOL
--- NOTE | 2019-06-18 11:30 | PCM.PROG ---
Progress Note - Progress Note for Day of Date of Exam: 06/17/19 - Subjective Subjective: WAS ADMITTED FOR TREATMENT OF CONGESTIVE HEART FAILURE, HYPERTENSIVE EMERGENCY, URINARY TRACT INFECTION, AND ALTERED MENTAL STATUS. TODAY, SHE IS ALERT, LYING IN BED ON MORNING ROUNDS. FAMILY REPORTS THAT SHE CONTINUES WITH CONFUSION AT TIMES. PATIENT REPORTS SHORTNESS OF BREATH. ON EXAMINATION, HEART IS REGULAR IN RATE AND RHYTHM. BILATERAL LUNGS RE NOTED WITH SCATTERED WHEEZING THROUGHOUT. ABDOMEN IS ROUND, SOFT, AND NON-TENDER WITH NORMAL BOWEL SOUNDS NOTED IN ALL QUADRANTS. BLE CONTINUE WITH 2+ PITTING EDEMA. LEFT LEG CONTINUES WITH ERYTHEMA AND WARMTH. HER VITALS THIS MORNING ARE: 97.9-77-20-98%-160/75. LABS WERE OBTAINED. ABNORMAL LAB VALUES INCLUDE THE FOLLOWING: RBC 3.47, HGB 10.6, HCT 31.4, POTASSIUM 3.4, BUN 20, CREATININE 1.27, ALT 11, ALK PHOS 136, ALBUMIN 2.7. CARDIAC ENZYMES ARE WITHIN NORMAL LIMITS. A URINE CULTURE IS PENDING. SHE IS CURRENTLY RECEIVING NS AT 50ML/HR, IV FORTAZ, LASIX 40MG IV BID, AND THE POTASSIUM PROTOCOL . HOME MEDICATIONS WERE RESUMED. TODAY, WE WILL START ALBUMIN 25% IV DAILY AND ELIQUIS 2.5MG PO BID. OTHERWISE, WE PLAN TO FOLLOW UP WITH AM LABS AND CONTINUE TO MONITOR. - Past Medical Family Social History Past Med/Fam/Surg Hx: No changes since H&P Allergies: Allergies codeine Allergy (Verified 06/15/19 07:18) - Review of Systems ROS: No change since H&P - Vital Signs and I&O's Vital Signs: Temperature 98.3 F Pulse Rate [Right Radial] 80 Pulse Rate 81 Respiratory Rate 20 Blood Pressure [Left Arm] 177/81 Blood Pressure [Right Arm] 119/68 Blood Pressure 212/111 O2 Sat by Pulse Oximetry 98 Intake and Output: Intake & Output 06/15/19 06/16/19 06/17/19 06/18/19 11:59 11:59 11:59 11:59 Intake Total 842 / 842 1550 / 1550 1650 / 1650 Output Total 1650 / 1650 4150 / 4150 2475 / 2475 4200 / 4200 Balance -1650 / -1650 -3308 / -3308 -925 / -925 -2550 / -2550 - Physical Exam Oriented: Person Eyes: Normal Ear: Normal Nose: Normal Throat: Normal Respiratory: Generalized, Wheezes Cardiovascular: Normal. negative: S3, S4, Murmur : Normal Auscultation: Bowel Sounds: Normal Palpation: Normal Tenderness: Normal Skin: Red (LEFT LOWER EXTREMITY ), Tender, Hot, Wound Musculoskeletal: Normal Psychiatric: Other (CONFUSION ) Mood Description: Calm, Appropriate Affect: Normal Speech Pattern: Clear - Laboratory and Diagnostics Result Diagrams: 06/18/19 04:20 06/18/19 04:20 Labs: 06/16/19 16:20 Leg - Left Wound Culture - Preliminary 06/15/19 08:17 Urine,Catheterized Urine Culture - Final Escherichia Coli Laboratory WBC 7.3 X10^3/uL (3.6-10.0) 06/18/19 04:20 RBC 3.65 X10^6/uL (3.5-5.4) 06/18/19 04:20 Hgb 11.2 g/dL (12.0-16.0) L 06/18/19 04:20 Hct 33.2 % (36.0-47.0) L 06/18/19 04:20 MCV 91.0 fL (80.0-100.0) 06/18/19 04:20 MCH 30.6 pg (27.0-34.0) 06/18/19 04:20 MCHC 33.7 g/dL (33.0-35.0) 06/18/19 04:20 RDW 12.5 % (11.6-16.5) 06/18/19 04:20 Plt Count 267 X10^3/uL (150.0-450.0) 06/18/19 04:20 MPV 8.8 fL (7.4-11.0) 06/18/19 04:20 Neut % (Auto) 55.5 % (42.0-75.0) 06/18/19 04:20 Lymph % (Auto) 31.5 % (21.0-51.0) 06/18/19 04:20 [place] % (Auto) 8.9 % (0.0-13.0) 06/18/19 04:20 Eos % (Auto) 3.6 % (0.9-2.9) H 06/18/19 04:20 Baso % (Auto) 0.5 % (0.2-1.0) 06/18/19 04:20 Neut # (Auto) 4.1 x10^3/uL (2.2-4.8) 06/18/19 04:20 Lymph # (Auto) 2.3 X10^3/uL (1.3-2.9) 06/18/19 04:20 [place] # (Auto) 0.7 x10^3/uL (0.3-0.8) 06/18/19 04:20 Eos # (Auto) 0.3 x10^3/uL (0.0-0.2) H 06/18/19 04:20 Baso # (Auto) 0.0 X10^3/uL (0.0-0.1) 06/18/19 04:20 Absolute Nucleated RBC 0.0 /100WBC 06/18/19 04:20 PT 13.9 SECONDS (11.8-14.3) 06/15/19 07:09 INR Target Range - 06/15/19 07:09 INR 1.11 (0.8-1.3) 06/15/19 07:09 Sample Site Lr 06/15/19 09:16 ABG pH 7.440 (7.35-7.45) 06/15/19 09:16 ABG pCO2 44.0 mmHg (35.0-45.0) 06/15/19 09:16 ABG pO2 62.0 mmHg (80.0-100.0) L 06/15/19 09:16 ABG HCO3 29.9 mmol/L (22-26) H 06/15/19 09:16 ABG O2 Saturation 92.0 % (90-100) 06/15/19 09:16 ABG Base Excess 5.1 mmol/L (-2.0-2.0) H 06/15/19 09:16 Juve Test Pos 06/15/19 09:16 A-a Gradient 33.0 mmHg 06/15/19 09:16 FiO2 21.0 06/15/19 09:16 Blood Gas Comments Pt herb well. cdn 06/15/19 09:16 Sodium 138 mmol/L (136-145) 06/18/19 04:20 Corrected Sodium TNP 06/18/19 04:20 Potassium 3.2 mmol/L (3.5-5.1) L 06/18/19 04:20 Chloride 96 mmol/L (98-107) L 06/18/19 04:20 Carbon Dioxide 34.1 mmol/L (21-32) H 06/18/19 04:20 BUN 25 mg/dL (7-18) H 06/18/19 04:20 Creatinine 1.14 mg/dL (0.55-1.02) H 06/18/19 04:20 Est GFR (MDRD) Af Amer 58 (>60) L 06/18/19 04:20 Est GFR (MDRD) Non-Af 48 (>60) L 06/18/19 04:20 Glucose 98 mg/dL (65-99) 06/18/19 04:20 POC Glucose (mg/dL) 78 mg/dL (65-99) 06/15/19 07:11 Lactic Acid 1.1 mmol/L (0.4-2.0) 06/15/19 07:14 Calcium 9.2 mg/dL (8.5-10.1) 06/18/19 04:20 Corrected Calcium TNP 06/18/19 04:20 Magnesium 1.8 mg/dL (1.7-2.9) 06/18/19 04:20 Total Bilirubin 0.60 mg/dL (0.2-1.0) 06/18/19 04:20 AST 22 Units/L (15-37) 06/18/19 04:20 ALT 10 Units/L (12-78) L 06/18/19 04:20 Alkaline Phosphatase 130 Units/L (46-116) H 06/18/19 04:20 Ammonia < 10 umol/L (11-32) L 06/15/19 07:14 Creatine Kinase 24 Units/L (26-192) L 06/16/19 19:18 CK-MB (CK-2) < 1.0 ng/mL (0-4.0) 06/16/19 19:18 CK/CKMB % Calc 4.2 % (<4) 06/16/19 19:18 Troponin I 0.02 ng/mL (0-1.5) 06/16/19 19:18 B-Natriuretic Peptide 1330 pg/mL (0-79) H* 06/15/19 07:14 Total Protein 7.8 g/dL (6.4-8.2) 06/18/19 04:20 Albumin 3.4 g/dL (3.4-5.0) 06/18/19 04:20 Globulin 4.4 g/dL (2.5-4.5) 06/18/19 04:20 Albumin/Globulin Ratio 0.8 Ratio (1.1-2.1) L 06/18/19 04:20 TSH 3rd Generation 3.795 uIU/mL (0.358-3.74) H 06/15/19 07:09 Specimen Type Catherized urine 06/15/19 08:17 Urine Color Yellow (YELLOW) 06/15/19 08:17 Urine Appearance Cloudy (CLEAR) 06/15/19 08:17 Urine pH 6.0 (5.0 - 8.0) 06/15/19 08:17 Ur Specific [place] 1.010 (1.000-1.030) 06/15/19 08:17 Urine Protein Negative (NEGATIVE) 06/15/19 08:17 Urine Glucose (UA) Negative (NEGATIVE) 06/15/19 08:17 Urine Ketones Negative (NEGATIVE) 06/15/19 08:17 Urine Occult Blood 2+ (NEGATIVE) 06/15/19 08:17 Urine Nitrite Positive (NEGATIVE) 06/15/19 08:17 Urine Bilirubin Negative (NEGATIVE) 06/15/19 08:17 Urine Urobilinogen Normal (NORMAL) 06/15/19 08:17 Ur Leukocyte Esterase 2+ (NEGATIVE) 06/15/19 08:17 Urine RBC 5-10 /HPF (0-3) A 06/15/19 08:17 Urine WBC 10-20 /HPF (0-5) A 06/15/19 08:17 Ur Squamous Epith Cells Rare /HPF (NEGATIVE) 06/15/19 08:17 Urine Bacteria 3+ /HPF (NEGATIVE) 06/15/19 08:17 Ur Culture Indicated? Yes/culture set up 06/15/19 08:17 - Plan (1) CHF (congestive heart failure) Status: Acute Qualifiers: Heart failure type: unspecified Heart failure chronicity: acute on chronic Qualified Code(s): I50.9 - Heart failure, unspecified Plan: LASIX 40MG IV BID, SUPPLEMENTAL OXYGEN, CONTINUE TO MONITOR (2) Acute UTI (urinary tract infection) Status: Acute Plan: ROCEPHIN 1G IV DAILY, FORTAZ 1G IV Q8H, CONTINUE TO MONITOR (3) Hypertensive emergency Status: Acute Plan: CONTINUE HOME MEDS (4) Altered mental status Status: Acute Qualifiers: Altered mental status type: transient alteration of awareness Qualified Code(s): R40.4 - Transient alteration of awareness (5) Hypokalemia Status: Acute Plan: POTASSIUM REPLACEMENT PER PROTOCOL (6) Hypoalbuminemia Status: Acute Plan: ALBUMIN 25% IV DAILY, CONTINUE TO MONITOR
[2019-06-18] MEDS: PATIENT'S HOME MEDICATION EXT SCH ×4 (11:45→20:43)
[2019-06-18] MEDS: PATIENT'S HOME MEDICATION TOP SCH ×2 (11:45→20:43)
[2019-06-18] MEDS: INVANZ INJ 1 GM VIAL 1 GM in NS 100 ML IV + SPIKE MINIBAG* 100 ML IV SCH (11:54)
[2019-06-18] MEDS: COLACE CAP 100 MG PO SCH ×2 (12:53→20:42)
[2019-06-18] MEDS: MILK OF MAGNESIA PO SCH ×2 (12:53→20:42)
[2019-06-18] MEDS: TOPROL XL PO SCH (12:53)
[2019-06-18] MEDS: SYNTHROID 50 mcg TAB PO SCH (16:37)
[2019-06-18] MEDS: CRESTOR TAB 10 MG PO SCH (20:42)
--- NOTE | 2019-06-18 22:02 | PCM.PROG ---
Progress Note - Progress Note for Day of Date of Exam: 06/18/19 - Subjective Subjective: WAS ADMITTED FOR TREATMENT OF CONGESTIVE HEART FAILURE, HYPERTENSIVE EMERGENCY, URINARY TRACT INFECTION, AND ALTERED MENTAL STATUS. TODAY, SHE IS LYING IN BED WITH EYES CLOSED ON MORNING ROUNDS. FAMILY REPORTS THAT SHE HAS BEEN DIFFICULT TO AROUSE AND CONTINUES WITH CONFUSION AT TIMES. ON EXAMINATION, HEART IS REGULAR IN RATE AND RHYTHM. BILATERAL LUNGS RE NOTED WITH SCATTERED WHEEZING THROUGHOUT. ABDOMEN IS ROUND, SOFT, AND NON-TENDER WITH NORMAL BOWEL SOUNDS NOTED IN ALL QUADRANTS. BLE CONTINUE WITH 2+ PITTING EDEMA. LEFT LEG CONTINUES WITH ERYTHEMA AND WARMTH. HER VITALS THIS MORNING ARE: 98.3-80-20-98%-119/68. LABS WERE OBTAINED. ABNORMAL LAB VALUES INCLUDE THE FOLLOWING: HGB 11.2, HCT 33.2, POTASSIUM 3.2, CHLORIDE 96, CARBON DIOXIDE 34.1, BUN 25, CREATININE 1.14, ALT 10, ALK PHOS 130. A URINE CULTURE REPORTS GROWTH OF E.COLI. SHE IS CURRENTLY RECEIVING NS AT 50ML/HR, IV FORTAZ, LASIX 40MG IV BID, ALBUMIN, ELIQUIS, AND THE POTASSIUM PROTOCOL. HOME MEDICATIONS WERE RESUMED. TODAY, WE WILL DISCONTINUE THE FORTAZ AND START INVANZ 1G IV DAILY. WE WILL ALSO DISCONTINUE THE LISINOPRIL AND START METOPROLOL 25MG PO DAILY. WE WILL ORDER FOR THE BIPAP TO BE WORN AT BEDTIME. OTHERWISE, WE PLAN TO FOLLOW UP WITH AM LABS AND CONTINUE TO MONITOR. - Past Medical Family Social History Past Med/Fam/Surg Hx: No changes since H&P Allergies: Allergies codeine Allergy (Verified 06/15/19 07:18) - Review of Systems ROS: No change since H&P - Vital Signs and I&O's Vital Signs: Temperature 98.3 F Pulse Rate [Right Radial] 72 Pulse Rate 95 Respiratory Rate 18 Blood Pressure [Left Arm] 177/81 Blood Pressure [Right Arm] 105/51 Blood Pressure 212/111 O2 Sat by Pulse Oximetry 97 Intake and Output: Intake & Output 06/16/19 06/17/19 06/18/19 06/19/19 11:59 11:59 11:59 11:59 Intake Total 842 / 842 1550 / 1550 1650 / 1650 1580 / 1580 Output Total 4150 / 4150 2475 / 2475 4200 / 4200 600 / 600 Balance -3308 / -3308 -925 / -925 -2550 / -2550 980 / 980 - Physical Exam Oriented: Person Eyes: Normal Ear: Normal Nose: Normal Throat: Normal Respiratory: Generalized, Wheezes Cardiovascular: Normal. negative: S3, S4, Murmur : Normal Auscultation: Bowel Sounds: Normal Palpation: Normal Tenderness: Normal Skin: Red (LEFT LOWER EXTREMITY ), Tender, Hot, Wound Musculoskeletal: Normal Psychiatric: Other (CONFUSION ) Mood Description: Calm, Appropriate Affect: Normal Speech Pattern: Clear - Laboratory and Diagnostics Result Diagrams: 06/18/19 04:20 06/18/19 12:17 Labs: 06/16/19 16:20 Leg - Left Wound Culture - Preliminary 06/15/19 08:17 Urine,Catheterized Urine Culture - Final Escherichia Coli Laboratory WBC 7.3 X10^3/uL (3.6-10.0) 06/18/19 04:20 RBC 3.65 X10^6/uL (3.5-5.4) 06/18/19 04:20 Hgb 11.2 g/dL (12.0-16.0) L 06/18/19 04:20 Hct 33.2 % (36.0-47.0) L 06/18/19 04:20 MCV 91.0 fL (80.0-100.0) 06/18/19 04:20 MCH 30.6 pg (27.0-34.0) 06/18/19 04:20 MCHC 33.7 g/dL (33.0-35.0) 06/18/19 04:20 RDW 12.5 % (11.6-16.5) 06/18/19 04:20 Plt Count 267 X10^3/uL (150.0-450.0) 06/18/19 04:20 MPV 8.8 fL (7.4-11.0) 06/18/19 04:20 Neut % (Auto) 55.5 % (42.0-75.0) 06/18/19 04:20 Lymph % (Auto) 31.5 % (21.0-51.0) 06/18/19 04:20 [place] % (Auto) 8.9 % (0.0-13.0) 06/18/19 04:20 Eos % (Auto) 3.6 % (0.9-2.9) H 06/18/19 04:20 Baso % (Auto) 0.5 % (0.2-1.0) 06/18/19 04:20 Neut # (Auto) 4.1 x10^3/uL (2.2-4.8) 06/18/19 04:20 Lymph # (Auto) 2.3 X10^3/uL (1.3-2.9) 06/18/19 04:20 [place] # (Auto) 0.7 x10^3/uL (0.3-0.8) 06/18/19 04:20 Eos # (Auto) 0.3 x10^3/uL (0.0-0.2) H 06/18/19 04:20 Baso # (Auto) 0.0 X10^3/uL (0.0-0.1) 06/18/19 04:20 Absolute Nucleated RBC 0.0 /100WBC 06/18/19 04:20 PT 13.9 SECONDS (11.8-14.3) 06/15/19 07:09 INR Target Range - 06/15/19 07:09 INR 1.11 (0.8-1.3) 06/15/19 07:09 Sample Site Lr 06/15/19 09:16 ABG pH 7.440 (7.35-7.45) 06/15/19 09:16 ABG pCO2 44.0 mmHg (35.0-45.0) 06/15/19 09:16 ABG pO2 62.0 mmHg (80.0-100.0) L 06/15/19 09:16 ABG HCO3 29.9 mmol/L (22-26) H 06/15/19 09:16 ABG O2 Saturation 92.0 % (90-100) 06/15/19 09:16 ABG Base Excess 5.1 mmol/L (-2.0-2.0) H 06/15/19 09:16 Juve Test Pos 06/15/19 09:16 A-a Gradient 33.0 mmHg 06/15/19 09:16 FiO2 21.0 06/15/19 09:16 Blood Gas Comments Pt herb well. cdn 06/15/19 09:16 Sodium 138 mmol/L (136-145) 06/18/19 04:20 Corrected Sodium TNP 06/18/19 04:20 Potassium 3.4 mmol/L (3.5-5.1) L 06/18/19 12:17 Chloride 96 mmol/L (98-107) L 06/18/19 04:20 Carbon Dioxide 34.1 mmol/L (21-32) H 06/18/19 04:20 BUN 25 mg/dL (7-18) H 06/18/19 04:20 Creatinine 1.14 mg/dL (0.55-1.02) H 06/18/19 04:20 Est GFR (MDRD) Af Amer 58 (>60) L 06/18/19 04:20 Est GFR (MDRD) Non-Af 48 (>60) L 06/18/19 04:20 Glucose 98 mg/dL (65-99) 06/18/19 04:20 POC Glucose (mg/dL) 78 mg/dL (65-99) 06/15/19 07:11 Lactic Acid 1.1 mmol/L (0.4-2.0) 06/15/19 07:14 Calcium 9.2 mg/dL (8.5-10.1) 06/18/19 04:20 Corrected Calcium TNP 06/18/19 04:20 Magnesium 1.8 mg/dL (1.7-2.9) 06/18/19 04:20 Total Bilirubin 0.60 mg/dL (0.2-1.0) 06/18/19 04:20 AST 22 Units/L (15-37) 06/18/19 04:20 ALT 10 Units/L (12-78) L 06/18/19 04:20 Alkaline Phosphatase 130 Units/L (46-116) H 06/18/19 04:20 Ammonia < 10 umol/L (11-32) L 06/15/19 07:14 Creatine Kinase 24 Units/L (26-192) L 06/16/19 19:18 CK-MB (CK-2) < 1.0 ng/mL (0-4.0) 06/16/19 19:18 CK/CKMB % Calc 4.2 % (<4) 06/16/19 19:18 Troponin I 0.02 ng/mL (0-1.5) 06/16/19 19:18 B-Natriuretic Peptide 1330 pg/mL (0-79) H* 06/15/19 07:14 Total Protein 7.8 g/dL (6.4-8.2) 06/18/19 04:20 Albumin 3.4 g/dL (3.4-5.0) 06/18/19 04:20 Globulin 4.4 g/dL (2.5-4.5) 06/18/19 04:20 Albumin/Globulin Ratio 0.8 Ratio (1.1-2.1) L 06/18/19 04:20 TSH 3rd Generation 3.795 uIU/mL (0.358-3.74) H 06/15/19 07:09 Specimen Type Catherized urine 06/15/19 08:17 Urine Color Yellow (YELLOW) 06/15/19 08:17 Urine Appearance Cloudy (CLEAR) 06/15/19 08:17 Urine pH 6.0 (5.0 - 8.0) 06/15/19 08:17 Ur Specific [place] 1.010 (1.000-1.030) 06/15/19 08:17 Urine Protein Negative (NEGATIVE) 06/15/19 08:17 Urine Glucose (UA) Negative (NEGATIVE) 06/15/19 08:17 Urine Ketones Negative (NEGATIVE) 06/15/19 08:17 Urine Occult Blood 2+ (NEGATIVE) 06/15/19 08:17 Urine Nitrite Positive (NEGATIVE) 06/15/19 08:17 Urine Bilirubin Negative (NEGATIVE) 06/15/19 08:17 Urine Urobilinogen Normal (NORMAL) 06/15/19 08:17 Ur Leukocyte Esterase 2+ (NEGATIVE) 06/15/19 08:17 Urine RBC 5-10 /HPF (0-3) A 06/15/19 08:17 Urine WBC 10-20 /HPF (0-5) A 06/15/19 08:17 Ur Squamous Epith Cells Rare /HPF (NEGATIVE) 06/15/19 08:17 Urine Bacteria 3+ /HPF (NEGATIVE) 06/15/19 08:17 Ur Culture Indicated? Yes/culture set up 06/15/19 08:17 - Plan (1) CHF (congestive heart failure) Status: Acute Qualifiers: Heart failure type: unspecified Heart failure chronicity: acute on chronic Qualified Code(s): I50.9 - Heart failure, unspecified Plan: LASIX 40MG IV BID, SUPPLEMENTAL OXYGEN, CONTINUE TO MONITOR (2) Acute UTI (urinary tract infection) Status: Acute Plan: INVANZ 1G IV DAILY, CONTINUE TO MONITOR (3) Hypertensive emergency Status: Acute Plan: CONTINUE HOME MEDS (4) Altered mental status Status: Acute Qualifiers: Altered mental status type: transient alteration of awareness Qualified Code(s): R40.4 - Transient alteration of awareness (5) Hypokalemia Status: Acute Plan: POTASSIUM REPLACEMENT PER PROTOCOL (6) Hypoalbuminemia Status: Acute Plan: ALBUMIN 25% IV DAILY, CONTINUE TO MONITOR
[2019-06-19 05:09] LABS: BASOPHILS # (AUTO) 0.1 X10^3/uL (0.0-0.1); BASOPHILS % (AUTO) 0.8 % (0.2-1.0); EOSINOPHILS # (AUTO) 0.3 x10^3/uL (0.0-0.2); EOSINOPHILS % (AUTO) 3.5 % (0.9-2.9); HEMOGLOBIN 10.9 g/dL (12.0-16.0); LYMPHOCYTES # (AUTO) 2.6 X10^3/uL (1.3-2.9); LYMPHOCYTES % (AUTO) 35.2 % (21.0-51.0); MEAN CORPUSCULAR HEMOGLOBIN 30.8 pg (27.0-34.0); MEAN CORPUSCULAR HGB CONC 33.9 g/dL (33.0-35.0); MEAN CORPUSCULAR VOLUME 90.6 fL (80.0-100.0); MONOCYTES # (AUTO) 0.7 x10^3/uL (0.3-0.8); MONOCYTES % (AUTO) 9.5 % (0.0-13.0); NEUTROPHILS # (AUTO) 3.8 x10^3/uL (2.2-4.8); PLATELET COUNT 260 X10^3/uL (150.0-450.0); RED BLOOD COUNT 3.53 X10^6/uL (3.5-5.4); RED CELL DISTRIBUTION WIDTH 12.5 % (11.6-16.5); WHITE BLOOD COUNT 7.4 X10^3/uL (3.6-10.0)
[2019-06-19 05:27] LABS: ALANINE AMINOTRANSFERASE 15 Units/L (12-78); ALBUMIN 3.6 g/dL (3.4-5.0); ALKALINE PHOSPHATASE 124 Units/L (46-116); ASPARTATE AMINO TRANSFERASE 21 Units/L (15-37); BLOOD UREA NITROGEN 37 mg/dL (7-18); CALCIUM 9.2 mg/dL (8.5-10.1); CARBON DIOXIDE 34.1 mmol/L (21-32); CHLORIDE 100 mmol/L (98-107); CREATININE 1.33 mg/dL (0.55-1.02); SODIUM 141 mmol/L (136-145); TOTAL PROTEIN 7.5 g/dL (6.4-8.2); eGFR NON BLACK RACES 40 (>60)
--- NOTE | 2019-06-19 06:09 | RAD ---
HISTORY: Shortness of breath Study: Chest AP portable Comparison: 06/18/2019 Findings: The heart remains enlarged. The lizzette are normal. The aorta is calcified. The right lung and left upper lung whelan are clear. Persistent increased density in the retrocardiac area of the left lower lobe continues to obscure the left hemidiaphragm. This could be on the basis of pleural effusion atelectasis infiltrate or combination. The bony thorax is unremarkable. Right pleural effusion is decreasing. IMPRESSION: Continued cardiomegaly without congestive heart failure No change persistent retrocardiac density obscuring the medial left hemidiaphragm Decreasing right pleural effusion Reported By:
[2019-06-19] MEDS: NEURONTIN CAP 100 MG PO SCH ×2 (09:21→21:04)
[2019-06-19] MEDS: COLACE CAP 100 MG PO SCH ×2 (09:21→21:03)
[2019-06-19] MEDS: ELIQUIS PO SCH ×2 (09:22→21:04)
[2019-06-19] MEDS: HYDROCHLOROTHIAZIDE 25 MG TAB PO SCH (09:23)
[2019-06-19] MEDS: PATIENT'S HOME MEDICATION EXT SCH ×4 (09:24→21:04)
[2019-06-19] MEDS: PATIENT'S HOME MEDICATION TOP SCH ×2 (09:24→21:04)
[2019-06-19] MEDS: TOPROL XL PO SCH (09:24)
[2019-06-19] MEDS: INVANZ INJ 1 GM VIAL 1 GM in NS 100 ML IV + SPIKE MINIBAG* 100 ML IV SCH (09:25)
[2019-06-19] MEDS: LASIX IVP SCH (09:25)
[2019-06-19] MEDS: ALBUMIN HUMAN 25%- 100 ML 100 ML IV SCH (09:26)
[2019-06-19] MEDS: MILK OF MAGNESIA PO SCH (09:37)
[2019-06-19] MEDS: NS 1000 ML 1,000 ML IV SCH (10:47)
--- NOTE | 2019-06-19 11:20 | PCM.PROG ---
Progress Note - Progress Note for Day of Date of Exam: 06/19/19 - Subjective Subjective: WAS ADMITTED FOR TREATMENT OF CONGESTIVE HEART FAILURE, HYPERTENSIVE EMERGENCY, URINARY TRACT INFECTION, ALTERED MENTAL STATUS, AND LEFT LOWER EXTREMITY CELLULITIS. TODAY, SHE IS ALERT, SITTING IN CHAIR ON MORNING ROUNDS. FAMILY REPORTS THAT SHE CONTINUES WITH CONFUSION AT TIMES. PATIENT REPORTS MODERATE SHORTNESS OF BREATH TODAY AND APPEARS TO HAVE LABORED BREATHING. ON EXAMINATION, HEART IS REGULAR IN RATE AND RHYTHM. BILATERAL LUNGS ARE NOTED WITH CRACKLES, DIMINISHED THROUGHOUT. ABDOMEN IS ROUND, SOFT, AND NON- TENDER WITH NORMAL BOWEL SOUNDS NOTED IN ALL QUADRANTS. BLE CONTINUE WITH 1+ PITTING EDEMA. LEFT LEG CONTINUES WITH ERYTHEMA AND WARMTH. WOUND TO LEFT LATERAL LEG CONTINUES WITH PURULENT DRAINAGE. HER VITALS THIS MORNING ARE: 98.9-68-18-98%-168/70. LABS WERE OBTAINED. ABNORMAL LAB VALUES INCLUDE THE FOLLOWING: HGB 10.9, HCT 32.0, CARBON DIOXIDE 34.1, BUN 37, CREATININE 1.33, GLUCOSE 102, ALK PHOS 124. A URINE CULTURE REPORTS GROWTH OF E.COLI. WOUND CULTURE OF LEFT LEG REPORTS GROWTH OF MRSA. A CHEST XRAY WAS OBTAINED TODAY AND REVEALED: Continued cardiomegaly without congestive heart failure. No change persistent retrocardiac density obscuring the medial left hemidiaphragm. Decreasing right pleural effusion. SHE IS CURRENTLY RECEIVING NS AT 50ML/HR, INV ANZ 1G IV DAILY, LASIX 40MG IV BID, ALBUMIN, ELIQUIS, AND THE POTASSIUM PROTOCOL. HOME MEDICATIONS WERE RESUMED. TODAY, WE WILL START DOXYCYCLINE FOR TREATMENT OF MRSA. WE WILL ORDER FOR THE BIPAP TO BE WORN AT BEDTIME AND THROUGHOUT THE DAY WHEN TOLERATED. WE WILL ADD KLONOPIN 0.5MG PO HS TO AID IN COMPLIANCE WITH BIPAP. OTHERWISE, WE PLAN TO FOLLOW UP WITH AM LABS AND CONTINUE TO MONITOR. - Past Medical Family Social History Past Med/Fam/Surg Hx: No changes since H&P Allergies: Allergies codeine Allergy (Verified 06/15/19 07:18) - Review of Systems ROS: No change since H&P - Vital Signs and I&O's Vital Signs: Temperature 98.9 F Pulse Rate [Right Radial] 68 Pulse Rate 95 Respiratory Rate 18 Blood Pressure [Left Arm] 177/81 Blood Pressure [Right Arm] 168/70 Blood Pressure 212/111 O2 Sat by Pulse Oximetry 98 Intake and Output: Intake & Output 06/16/19 06/17/19 06/18/19 06/19/19 11:59 11:59 11:59 11:59 Intake Total 842 / 842 1550 / 1550 1650 / 1650 2340 / 2340 Output Total 4150 / 4150 2475 / 2475 4200 / 4200 1851 / 1851 Balance -3308 / -3308 -925 / -925 -2550 / -2550 489 / 489 - Physical Exam Oriented: Person Eyes: Normal Ear: Normal Nose: Normal Throat: Normal Respiratory: Generalized, Wheezes Cardiovascular: Normal. negative: S3, S4, Murmur : Normal Auscultation: Bowel Sounds: Normal Palpation: Normal Tenderness: Normal Skin: Red (LEFT LOWER EXTREMITY ), Tender, Hot, Wound Musculoskeletal: Normal Psychiatric: Other (CONFUSION ) Mood Description: Calm, Appropriate Affect: Normal Speech Pattern: Clear - Laboratory and Diagnostics Result Diagrams: 06/19/19 04:06 06/19/19 04:06 Labs: 06/16/19 16:20 Leg - Left Wound Culture - Final Methicillin Resis Staph Aureus 06/15/19 08:17 Urine,Catheterized Urine Culture - Final Escherichia Coli Laboratory WBC 7.4 X10^3/uL (3.6-10.0) 06/19/19 04:06 RBC 3.53 X10^6/uL (3.5-5.4) 06/19/19 04:06 Hgb 10.9 g/dL (12.0-16.0) L 06/19/19 04:06 Hct 32.0 % (36.0-47.0) L 06/19/19 04:06 MCV 90.6 fL (80.0-100.0) 06/19/19 04:06 MCH 30.8 pg (27.0-34.0) 06/19/19 04:06 MCHC 33.9 g/dL (33.0-35.0) 06/19/19 04:06 RDW 12.5 % (11.6-16.5) 06/19/19 04:06 Plt Count 260 X10^3/uL (150.0-450.0) 06/19/19 04:06 MPV 9.0 fL (7.4-11.0) 06/19/19 04:06 Neut % (Auto) 51.0 % (42.0-75.0) 06/19/19 04:06 Lymph % (Auto) 35.2 % (21.0-51.0) 06/19/19 04:06 [place] % (Auto) 9.5 % (0.0-13.0) 06/19/19 04:06 Eos % (Auto) 3.5 % (0.9-2.9) H 06/19/19 04:06 Baso % (Auto) 0.8 % (0.2-1.0) 06/19/19 04:06 Neut # (Auto) 3.8 x10^3/uL (2.2-4.8) 06/19/19 04:06 Lymph # (Auto) 2.6 X10^3/uL (1.3-2.9) 06/19/19 04:06 [place] # (Auto) 0.7 x10^3/uL (0.3-0.8) 06/19/19 04:06 Eos # (Auto) 0.3 x10^3/uL (0.0-0.2) H 06/19/19 04:06 Baso # (Auto) 0.1 X10^3/uL (0.0-0.1) 06/19/19 04:06 Absolute Nucleated RBC 0.0 /100WBC 06/19/19 04:06 PT 13.9 SECONDS (11.8-14.3) 06/15/19 07:09 INR Target Range - 06/15/19 07:09 INR 1.11 (0.8-1.3) 06/15/19 07:09 Sample Site Lr 06/15/19 09:16 ABG pH 7.440 (7.35-7.45) 06/15/19 09:16 ABG pCO2 44.0 mmHg (35.0-45.0) 06/15/19 09:16 ABG pO2 62.0 mmHg (80.0-100.0) L 06/15/19 09:16 ABG HCO3 29.9 mmol/L (22-26) H 06/15/19 09:16 ABG O2 Saturation 92.0 % (90-100) 06/15/19 09:16 ABG Base Excess 5.1 mmol/L (-2.0-2.0) H 06/15/19 09:16 Juve Test Pos 06/15/19 09:16 A-a Gradient 33.0 mmHg 06/15/19 09:16 FiO2 21.0 06/15/19 09:16 Blood Gas Comments Pt herb well. cdn 06/15/19 09:16 Sodium 141 mmol/L (136-145) 06/19/19 04:06 Corrected Sodium TNP 06/19/19 04:06 Potassium 3.5 mmol/L (3.5-5.1) 06/19/19 04:06 Chloride 100 mmol/L (98-107) 06/19/19 04:06 Carbon Dioxide 34.1 mmol/L (21-32) H 06/19/19 04:06 BUN 37 mg/dL (7-18) H 06/19/19 04:06 Creatinine 1.33 mg/dL (0.55-1.02) H 06/19/19 04:06 Est GFR (MDRD) Af Amer 49 (>60) L 06/19/19 04:06 Est GFR (MDRD) Non-Af 40 (>60) L 06/19/19 04:06 Glucose 102 mg/dL (65-99) H 06/19/19 04:06 POC Glucose (mg/dL) 78 mg/dL (65-99) 06/15/19 07:11 Lactic Acid 1.1 mmol/L (0.4-2.0) 06/15/19 07:14 Calcium 9.2 mg/dL (8.5-10.1) 06/19/19 04:06 Corrected Calcium TNP 06/19/19 04:06 Magnesium 1.8 mg/dL (1.7-2.9) 06/18/19 04:20 Total Bilirubin 0.40 mg/dL (0.2-1.0) 06/19/19 04:06 AST 21 Units/L (15-37) 06/19/19 04:06 ALT 15 Units/L (12-78) 06/19/19 04:06 Alkaline Phosphatase 124 Units/L (46-116) H 06/19/19 04:06 Ammonia < 10 umol/L (11-32) L 06/15/19 07:14 Creatine Kinase 24 Units/L (26-192) L 06/16/19 19:18 CK-MB (CK-2) < 1.0 ng/mL (0-4.0) 06/16/19 19:18 CK/CKMB % Calc 4.2 % (<4) 06/16/19 19:18 Troponin I 0.02 ng/mL (0-1.5) 06/16/19 19:18 B-Natriuretic Peptide 1330 pg/mL (0-79) H* 06/15/19 07:14 Total Protein 7.5 g/dL (6.4-8.2) 06/19/19 04:06 Albumin 3.6 g/dL (3.4-5.0) 06/19/19 04:06 Globulin 3.9 g/dL (2.5-4.5) 06/19/19 04:06 Albumin/Globulin Ratio 0.9 Ratio (1.1-2.1) L 06/19/19 04:06 TSH 3rd Generation 3.795 uIU/mL (0.358-3.74) H 06/15/19 07:09 Specimen Type Catherized urine 06/15/19 08:17 Urine Color Yellow (YELLOW) 06/15/19 08:17 Urine Appearance Cloudy (CLEAR) 06/15/19 08:17 Urine pH 6.0 (5.0 - 8.0) 06/15/19 08:17 Ur Specific [place] 1.010 (1.000-1.030) 06/15/19 08:17 Urine Protein Negative (NEGATIVE) 06/15/19 08:17 Urine Glucose (UA) Negative (NEGATIVE) 06/15/19 08:17 Urine Ketones Negative (NEGATIVE) 06/15/19 08:17 Urine Occult Blood 2+ (NEGATIVE) 06/15/19 08:17 Urine Nitrite Positive (NEGATIVE) 06/15/19 08:17 Urine Bilirubin Negative (NEGATIVE) 06/15/19 08:17 Urine Urobilinogen Normal (NORMAL) 06/15/19 08:17 Ur Leukocyte Esterase 2+ (NEGATIVE) 06/15/19 08:17 Urine RBC 5-10 /HPF (0-3) A 06/15/19 08:17 Urine WBC 10-20 /HPF (0-5) A 08/23/19 08:17 Ur Squamous Epith Cells Rare /HPF (NEGATIVE) 06/15/19 08:17 Urine Bacteria 3+ /HPF (NEGATIVE) 06/15/19 08:17 Ur Culture Indicated? Yes/culture set up 06/15/19 08:17 - Plan (1) CHF (congestive heart failure) Status: Acute Qualifiers: Heart failure type: unspecified Heart failure chronicity: acute on chronic Qualified Code(s): I50.9 - Heart failure, unspecified Plan: LASIX 40MG IV BID, SUPPLEMENTAL OXYGEN, CONTINUE TO MONITOR (2) Acute UTI (urinary tract infection) Status: Acute Plan: INVANZ 1G IV DAILY, CONTINUE TO MONITOR (3) MRSA (methicillin resistant Staphylococcus aureus) infection Status: Acute Plan: DOXYCYCLINE IV Q12H, WOUND CARE, CONTINUE TO MONITOR (4) Hypertensive emergency Status: Acute Plan: CONTINUE HOME MEDS (5) Altered mental status Status: Acute Qualifiers: Altered mental status type: transient alteration of awareness Qualified Code(s): R40.4 - Transient alteration of awareness (6) Hypokalemia Status: Acute Plan: POTASSIUM REPLACEMENT PER PROTOCOL (7) Hypoalbuminemia Status: Acute Plan: ALBUMIN 25% IV DAILY, CONTINUE TO MONITOR
[2019-06-19] MEDS ORDERED: MILK OF MAGNESIA PO PRN (11:46)
[2019-06-19] MEDS: VIBRAMYCIN 100 MG in D5W 250 ML IV 250 ML IV SCH ×2 (13:55→21:04)
[2019-06-19] MEDS: SYNTHROID 50 mcg TAB PO SCH (16:51)
[2019-06-19] MEDS: CRESTOR TAB 10 MG PO SCH (21:03)
[2019-06-19] MEDS: KLONOPIN TAB 0.5 MG PO SCH (21:04)
[2019-06-20] MEDS: NS 1000 ML 1,000 ML IV SCH ×2 (00:29→15:50)
--- NOTE | 2019-06-20 06:07 | RAD ---
Chest radiograph, single AP view History: Shortness of breath Comparison: 06/19/2019. Findings: There is persistent cardiomegaly and pulmonary vasculature congestion. Right pleural effusion appears improved. No new consolidation. No evidence of pneumothorax. Conclusion: Slightly improving right pleural effusion, otherwise stable examination. Reported By:
[2019-06-20 06:08] LABS: BASOPHILS # (AUTO) 0.1 X10^3/uL (0.0-0.1); BASOPHILS % (AUTO) 1.4 % (0.2-1.0); EOSINOPHILS # (AUTO) 0.4 x10^3/uL (0.0-0.2); EOSINOPHILS % (AUTO) 5.6 % (0.9-2.9); HEMATOCRIT 31.2 % (36.0-47.0); HEMOGLOBIN 10.7 g/dL (12.0-16.0); LYMPHOCYTES # (AUTO) 2.7 X10^3/uL (1.3-2.9); LYMPHOCYTES % (AUTO) 41.5 % (21.0-51.0); MEAN CORPUSCULAR HEMOGLOBIN 30.7 pg (27.0-34.0); MEAN CORPUSCULAR HGB CONC 34.4 g/dL (33.0-35.0); MEAN CORPUSCULAR VOLUME 89.2 fL (80.0-100.0); MEAN PLATELET VOLUME 9.3 fL (7.4-11.0); MONOCYTES # (AUTO) 0.6 x10^3/uL (0.3-0.8); MONOCYTES % (AUTO) 9.3 % (0.0-13.0); NEUTROPHILS # (AUTO) 2.7 x10^3/uL (2.2-4.8); NEUTROPHILS % (AUTO) 42.2 % (42.0-75.0); PLATELET COUNT 214 X10^3/uL (150.0-450.0); RED BLOOD COUNT 3.49 X10^6/uL (3.5-5.4); RED CELL DISTRIBUTION WIDTH 12.6 % (11.6-16.5); WHITE BLOOD COUNT 6.5 X10^3/uL (3.6-10.0)
[2019-06-20 06:15] LABS: ALANINE AMINOTRANSFERASE 8 Units/L (12-78); ALBUMIN 3.7 g/dL (3.4-5.0); ALKALINE PHOSPHATASE 109 Units/L (46-116); ASPARTATE AMINO TRANSFERASE 26 Units/L (15-37); BLOOD UREA NITROGEN 40 mg/dL (7-18); CALCIUM 9.6 mg/dL (8.5-10.1); CARBON DIOXIDE 31.3 mmol/L (21-32); CHLORIDE 99 mmol/L (98-107); SODIUM 138 mmol/L (136-145); TOTAL PROTEIN 7.4 g/dL (6.4-8.2); eGFR NON BLACK RACES 45 (>60)
[2019-06-20] MEDS: LASIX IVP SCH ×2 (08:20→16:36)
[2019-06-20] MEDS: VIBRAMYCIN 100 MG in D5W 250 ML IV 250 ML IV SCH ×2 (09:27→21:24)
[2019-06-20] MEDS: ALBUMIN HUMAN 25%- 100 ML 100 ML IV SCH (09:28)
[2019-06-20] MEDS: INVANZ INJ 1 GM VIAL 1 GM in NS 100 ML IV + SPIKE MINIBAG* 100 ML IV SCH (09:29)
[2019-06-20] MEDS: TOPROL XL PO SCH (09:31)
[2019-06-20] MEDS: NEURONTIN CAP 100 MG PO SCH ×2 (09:31→20:50)
[2019-06-20] MEDS: COLACE CAP 100 MG PO SCH ×2 (09:31→20:50)
[2019-06-20] MEDS: ELIQUIS PO SCH ×2 (09:32→20:50)
[2019-06-20] MEDS: PATIENT'S HOME MEDICATION EXT SCH (09:35)
[2019-06-20] MEDS: PATIENT'S HOME MEDICATION TOP SCH (09:36)
[2019-06-20] MEDS: HYDROCHLOROTHIAZIDE 25 MG TAB PO SCH (09:36)
--- NOTE | 2019-06-20 14:54 | VAS ---
HISTORY: Extremity pain, swelling, and edema Study: Bilateral lower extremity Doppler venous ultrasound. TECHNIQUE: Multiple loomis scale and color flow Doppler images of the deep venous system were obtained of the right and left lower extremity. FINDINGS: The deep venous system of the right and left lower extremities were evaluated from the level of the common femoral veins through the popliteal veins, bilaterally. Normal color flow and augmentation can be observed. In addition, normal compression is seen throughout the deep venous system. No De La Garza's cyst is seen. IMPRESSION: 1. Negative examination for DVT. Reported By:
[2019-06-20] MEDS: SYNTHROID 50 mcg TAB PO SCH (16:27)
[2019-06-20] MEDS: CRESTOR TAB 10 MG PO SCH (20:50)
[2019-06-20] MEDS: KLONOPIN TAB 0.5 MG PO SCH (20:51)
[2019-06-21] MEDS: PATIENT'S HOME MEDICATION EXT SCH ×7 (00:39→21:20)
[2019-06-21] MEDS: PATIENT'S HOME MEDICATION TOP SCH ×3 (00:42→21:19)
[2019-06-21] MEDS: NS 1000 ML 1,000 ML IV SCH ×2 (04:20→18:14)
--- NOTE | 2019-06-21 05:08 | RAD ---
Chest radiograph, single view History: Shortness of breath Comparison: 06/20/2019 Findings: There is persistent cardiomegaly with slight improvement in pulmonary vasculature congestion. No new consolidation. No sizable pleural effusion is seen. There is no evidence of pneumothorax. Conclusion: Improving CHF. Reported By:
[2019-06-21 05:35] LABS: BASOPHILS # (AUTO) 0.1 X10^3/uL (0.0-0.1); EOSINOPHILS # (AUTO) 0.3 x10^3/uL (0.0-0.2); EOSINOPHILS % (AUTO) 4.7 % (0.9-2.9); HEMATOCRIT 31.1 % (36.0-47.0); HEMOGLOBIN 10.9 g/dL (12.0-16.0); LYMPHOCYTES # (AUTO) 2.5 X10^3/uL (1.3-2.9); LYMPHOCYTES % (AUTO) 34.3 % (21.0-51.0); MEAN CORPUSCULAR HEMOGLOBIN 31.3 pg (27.0-34.0); MEAN CORPUSCULAR VOLUME 89.3 fL (80.0-100.0); MEAN PLATELET VOLUME 9.5 fL (7.4-11.0); MONOCYTES # (AUTO) 0.7 x10^3/uL (0.3-0.8); MONOCYTES % (AUTO) 9.3 % (0.0-13.0); NEUTROPHILS # (AUTO) 3.7 x10^3/uL (2.2-4.8); NEUTROPHILS % (AUTO) 50.7 % (42.0-75.0); PLATELET COUNT 266 X10^3/uL (150.0-450.0); RED BLOOD COUNT 3.48 X10^6/uL (3.5-5.4); RED CELL DISTRIBUTION WIDTH 12.4 % (11.6-16.5); WHITE BLOOD COUNT 7.4 X10^3/uL (3.6-10.0)
[2019-06-21 05:50] LABS: ALANINE AMINOTRANSFERASE 10 Units/L (12-78); ALBUMIN 4.1 g/dL (3.4-5.0); ALKALINE PHOSPHATASE 123 Units/L (46-116); ASPARTATE AMINO TRANSFERASE 25 Units/L (15-37); BLOOD UREA NITROGEN 42 mg/dL (7-18); CALCIUM 10.1 mg/dL (8.5-10.1); CARBON DIOXIDE 31.5 mmol/L (21-32); CHLORIDE 98 mmol/L (98-107); CREATININE 1.28 mg/dL (0.55-1.02); SODIUM 138 mmol/L (136-145); TOTAL PROTEIN 7.9 g/dL (6.4-8.2); eGFR NON BLACK RACES 42 (>60)
[2019-06-21] MEDS ORDERED: ZOFRAN INJ 4 MG VIAL IVP PRN (07:31)
[2019-06-21] MEDS: VIBRAMYCIN 100 MG in D5W 250 ML IV 250 ML IV SCH ×2 (08:04→21:18)
[2019-06-21] MEDS: INVANZ INJ 1 GM VIAL 1 GM in NS 100 ML IV + SPIKE MINIBAG* 100 ML IV SCH (08:05)
[2019-06-21] MEDS: ALBUMIN HUMAN 25%- 100 ML 100 ML IV SCH (08:05)
[2019-06-21] MEDS: HYDROCHLOROTHIAZIDE 25 MG TAB PO SCH (08:06)
[2019-06-21] MEDS: NEURONTIN CAP 100 MG PO SCH ×2 (08:06→21:18)
[2019-06-21] MEDS: TOPROL XL PO SCH (08:06)
[2019-06-21] MEDS: ELIQUIS PO SCH ×2 (08:06→21:18)
[2019-06-21] MEDS: COLACE CAP 100 MG PO SCH ×2 (08:07→21:17)
[2019-06-21] MEDS: LASIX IVP SCH ×2 (08:07→16:59)
--- NOTE | 2019-06-21 08:19 | PCM.PROG ---
Progress Note - Progress Note for Day of Date of Exam: 06/20/19 - Subjective Subjective: WAS ADMITTED FOR TREATMENT OF CONGESTIVE HEART FAILURE, HYPERTENSIVE EMERGENCY, URINARY TRACT INFECTION, ALTERED MENTAL STATUS, AND LEFT LOWER EXTREMITY CELLULITIS. TODAY, SHE IS ALERT, LYING IN BED ON MORNING ROUNDS. FAMILY REPORTS THAT SHE CONTINUES WITH CONFUSION AT TIMES. PATIENT CONTINUES WITH SHORTNESS OF BREATH TODAY AND ALSO REPORTS SEVERE LEG PAIN. ON EXAMINATION, HEART IS REGULAR IN RATE AND RHYTHM. BILATERAL LUNGS ARE NOTED WITH CRACKLES, DIMINISHED THROUGHOUT. ABDOMEN IS ROUND, SOFT, AND NON-TENDER WITH NORMAL BOWEL SOUNDS NOTED IN ALL QUADRANTS. BLE CONTINUE WITH TRACE EDEMA. LEFT LEG CONTINUES WITH ERYTHEMA AND WARMTH. WOUND TO LEFT LATERAL LEG CONTINUES WITH PURULENT DRAINAGE. HER VITALS THIS MORNING ARE: 98.0-66-18-99%-166/74. LABS WERE OBTAINED. ABNORMAL LAB VALUES INCLUDE THE FOLLOWING: RBC 3.49, HGB 10.7, HCT 31.2, BUN 40, CREATININE 1.20, ALT 8. A URINE CULTURE REPORTS GROWTH OF E.COLI. WOUND CULTURE OF LEFT LEG REPORTS GROWTH OF MRSA. A CHEST XRAY WAS OBTAINED TODAY AND REVEALED: Slightly improving right pleural effusion, otherwise stable examination. SHE IS CURRENTLY RECEIVING NS AT 50ML/HR, INVANZ 1G IV DAILY, DOXYCYCLINE IV BID, LASIX 40MG IV BID, ALBUMIN, ELIQUIS, AND THE POTASSIUM PROTOCOL. SHE IS UTILIZING THE BIPAP AT BEDTIME AND PRN. HOME MEDICATIONS WERE RESUMED. TODAY, WE WILL OBTAIN A LOWER EXTREMITY VENOUS DOPPLER. OTHERWISE, WE PLAN TO FOLLOW UP WITH AM LABS AND CONTINUE TO MONITOR. - Past Medical Family Social History Past Med/Fam/Surg Hx: No changes since H&P Allergies: Allergies codeine Allergy (Verified 06/15/19 07:18) - Review of Systems ROS: No change since H&P - Vital Signs and I&O's Vital Signs: Temperature 98.3 F Pulse Rate [Right Radial] 74 Pulse Rate 61 Respiratory Rate 20 Blood Pressure [Left Arm] 177/81 Blood Pressure [Right Arm] 128/67 Blood Pressure 212/111 O2 Sat by Pulse Oximetry 98 Intake and Output: Intake & Output 06/18/19 06/19/19 06/20/19 06/21/19 11:59 11:59 11:59 11:59 Intake Total 1650 / 1650 2340 / 2340 1380 / 1380 2100 / 2100 Output Total 4200 / 4200 1851 / 1851 1000 / 1000 Balance -2550 / -2550 489 / 489 380 / 380 2099 - Physical Exam Oriented: Person Eyes: Normal Ear: Normal Nose: Normal Throat: Normal Respiratory: Generalized, Wheezes Cardiovascular: Normal. negative: S3, S4, Murmur : Normal Auscultation: Bowel Sounds: Normal Palpation: Normal Tenderness: Normal Skin: Red (LEFT LOWER EXTREMITY ), Tender, Hot, Wound Musculoskeletal: Normal Psychiatric: Other (CONFUSION ) Mood Description: Calm Affect: Normal Speech Pattern: Clear, Appropriate - Laboratory and Diagnostics Result Diagrams: 06/21/19 04:43 06/21/19 04:43 Labs: 06/16/19 16:20 Leg - Left Wound Culture - Final Methicillin Resis Staph Aureus 06/15/19 08:17 Urine,Catheterized Urine Culture - Final Escherichia Coli Laboratory WBC 7.4 X10^3/uL (3.6-10.0) 06/21/19 04:43 RBC 3.48 X10^6/uL (3.5-5.4) L 06/21/19 04:43 Hgb 10.9 g/dL (12.0-16.0) L 06/21/19 04:43 Hct 31.1 % (36.0-47.0) L 06/21/19 04:43 MCV 89.3 fL (80.0-100.0) 06/21/19 04:43 MCH 31.3 pg (27.0-34.0) 06/21/19 04:43 MCHC 35.0 g/dL (33.0-35.0) 06/21/19 04:43 RDW 12.4 % (11.6-16.5) 06/21/19 04:43 Plt Count 266 X10^3/uL (150.0-450.0) 06/21/19 04:43 MPV 9.5 fL (7.4-11.0) 06/21/19 04:43 Neut % (Auto) 50.7 % (42.0-75.0) 06/21/19 04:43 Lymph % (Auto) 34.3 % (21.0-51.0) 06/21/19 04:43 [place] % (Auto) 9.3 % (0.0-13.0) 06/21/19 04:43 Eos % (Auto) 4.7 % (0.9-2.9) H 06/21/19 04:43 Baso % (Auto) 1.0 % (0.2-1.0) 06/21/19 04:43 Neut # (Auto) 3.7 x10^3/uL (2.2-4.8) 06/21/19 04:43 Lymph # (Auto) 2.5 X10^3/uL (1.3-2.9) 06/21/19 04:43 [place] # (Auto) 0.7 x10^3/uL (0.3-0.8) 06/21/19 04:43 Eos # (Auto) 0.3 x10^3/uL (0.0-0.2) H 06/21/19 04:43 Baso # (Auto) 0.1 X10^3/uL (0.0-0.1) 06/21/19 04:43 Absolute Nucleated RBC 0.0 /100WBC 06/21/19 04:43 PT 13.9 SECONDS (11.8-14.3) 06/15/19 07:09 INR Target Range - 06/15/19 07:09 INR 1.11 (0.8-1.3) 06/15/19 07:09 Sample Site Lr 06/15/19 09:16 ABG pH 7.440 (7.35-7.45) 06/15/19 09:16 ABG pCO2 44.0 mmHg (35.0-45.0) 06/15/19 09:16 ABG pO2 62.0 mmHg (80.0-100.0) L 06/15/19 09:16 ABG HCO3 29.9 mmol/L (22-26) H 06/15/19 09:16 ABG O2 Saturation 92.0 % (90-100) 06/15/19 09:16 ABG Base Excess 5.1 mmol/L (-2.0-2.0) H 06/15/19 09:16 Juve Test Pos 06/15/19 09:16 A-a Gradient 33.0 mmHg 06/15/19 09:16 FiO2 21.0 06/15/19 09:16 Blood Gas Comments Pt herb well. cdn 08/23/19 09:16 Sodium 138 mmol/L (136-145) 06/21/19 04:43 Corrected Sodium TNP 06/21/19 04:43 Potassium 3.2 mmol/L (3.5-5.1) L 06/21/19 04:43 Chloride 98 mmol/L (98-107) 06/21/19 04:43 Carbon Dioxide 31.5 mmol/L (21-32) 06/21/19 04:43 BUN 42 mg/dL (7-18) H 06/21/19 04:43 Creatinine 1.28 mg/dL (0.55-1.02) H 06/21/19 04:43 Est GFR (MDRD) Af Amer 51 (>60) L 06/21/19 04:43 Est GFR (MDRD) Non-Af 42 (>60) L 06/21/19 04:43 Glucose 96 mg/dL (65-99) 06/21/19 04:43 POC Glucose (mg/dL) 78 mg/dL (65-99) 06/15/19 07:11 Lactic Acid 1.1 mmol/L (0.4-2.0) 06/15/19 07:14 Calcium 10.1 mg/dL (8.5-10.1) 06/21/19 04:43 Corrected Calcium TNP 06/21/19 04:43 Magnesium 2.0 mg/dL (1.7-2.9) 06/21/19 04:43 Total Bilirubin 0.40 mg/dL (0.2-1.0) 06/21/19 04:43 AST 25 Units/L (15-37) 06/21/19 04:43 ALT 10 Units/L (12-78) L 06/21/19 04:43 Alkaline Phosphatase 123 Units/L (46-116) H 06/21/19 04:43 Ammonia < 10 umol/L (11-32) L 06/15/19 07:14 Creatine Kinase 24 Units/L (26-192) L 06/16/19 19:18 CK-MB (CK-2) < 1.0 ng/mL (0-4.0) 06/16/19 19:18 CK/CKMB % Calc 4.2 % (<4) 06/16/19 19:18 Troponin I 0.02 ng/mL (0-1.5) 06/16/19 19:18 B-Natriuretic Peptide 1330 pg/mL (0-79) H* 06/15/19 07:14 Total Protein 7.9 g/dL (6.4-8.2) 06/21/19 04:43 Albumin 4.1 g/dL (3.4-5.0) 06/21/19 04:43 Globulin 3.8 g/dL (2.5-4.5) 06/21/19 04:43 Albumin/Globulin Ratio 1.1 Ratio (1.1-2.1) 06/21/19 04:43 TSH 3rd Generation 3.795 uIU/mL (0.358-3.74) H 06/15/19 07:09 Specimen Type Catherized urine 06/15/19 08:17 Urine Color Yellow (YELLOW) 06/15/19 08:17 Urine Appearance Cloudy (CLEAR) 06/15/19 08:17 Urine pH 6.0 (5.0 - 8.0) 06/15/19 08:17 Ur Specific [place] 1.010 (1.000-1.030) 06/15/19 08:17 Urine Protein Negative (NEGATIVE) 06/15/19 08:17 Urine Glucose (UA) Negative (NEGATIVE) 06/15/19 08:17 Urine Ketones Negative (NEGATIVE) 06/15/19 08:17 Urine Occult Blood 2+ (NEGATIVE) 06/15/19 08:17 Urine Nitrite Positive (NEGATIVE) 06/15/19 08:17 Urine Bilirubin Negative (NEGATIVE) 06/15/19 08:17 Urine Urobilinogen Normal (NORMAL) 06/15/19 08:17 Ur Leukocyte Esterase 2+ (NEGATIVE) 06/15/19 08:17 Urine RBC 5-10 /HPF (0-3) A 06/15/19 08:17 Urine WBC 10-20 /HPF (0-5) A 06/15/19 08:17 Ur Squamous Epith Cells Rare /HPF (NEGATIVE) 06/15/19 08:17 Urine Bacteria 3+ /HPF (NEGATIVE) 06/15/19 08:17 Ur Culture Indicated? Yes/culture set up 06/15/19 08:17 - Plan (1) CHF (congestive heart failure) Status: Acute Qualifiers: Heart failure type: unspecified Heart failure chronicity: acute on chronic Qualified Code(s): I50.9 - Heart failure, unspecified Plan: LASIX 40MG IV BID, SUPPLEMENTAL OXYGEN, CONTINUE TO MONITOR (2) Acute UTI (urinary tract infection) Status: Acute Plan: INVANZ 1G IV DAILY, CONTINUE TO MONITOR (3) MRSA (methicillin resistant Staphylococcus aureus) infection Status: Acute Plan: DOXYCYCLINE IV Q12H, WOUND CARE, CONTINUE TO MONITOR (4) Hypertensive emergency Status: Acute Plan: CONTINUE HOME MEDS (5) Altered mental status Status: Acute Qualifiers: Altered mental status type: transient alteration of awareness Qualified Code(s): R40.4 - Transient alteration of awareness (6) Hypokalemia Status: Acute Plan: POTASSIUM REPLACEMENT PER PROTOCOL (7) Hypoalbuminemia Status: Acute Plan: ALBUMIN 25% IV DAILY, CONTINUE TO MONITOR
[2019-06-21] MEDS: SYNTHROID 50 mcg TAB PO SCH (16:59)
[2019-06-21 17:19] LABS: BILIRUBIN,URINE NEGATIVE (NEGATIVE); BLOOD/HEMOGLOBIN,URINE NEGATIVE (NEGATIVE); GLUCOSE, URINE NEGATIVE (NEGATIVE); KETONES,URINE NEGATIVE (NEGATIVE); LEUKOCYTE ESTERASE ,URINE NEGATIVE (NEGATIVE); NITRITES,URINE NEGATIVE (NEGATIVE); PROTEIN,URINE NEGATIVE (NEGATIVE); UROBILINOGEN,URINE NORMAL (NORMAL)
[2019-06-21 17:23] LABS: APPEARANCE,URINE CLEAR (CLEAR); COLOR,URINE PALE YELLOW (YELLOW)
--- NOTE | 2019-06-21 21:16 | PCM.PROG ---
Progress Note - Progress Note for Day of Date of Exam: 06/21/19 - Subjective Subjective: WAS ADMITTED FOR TREATMENT OF CONGESTIVE HEART FAILURE, HYPERTENSIVE EMERGENCY, URINARY TRACT INFECTION, ALTERED MENTAL STATUS, AND LEFT LOWER EXTREMITY CELLULITIS. TODAY, SHE IS LYING IN BED WITH EYES CLOSED ON MORNING ROUNDS. SHE IS DIFFICULT TO AROUSE THIS MORNING. THIS IS LIKELY DUE TO THE KLONOPIN AND RESTORIL THAT PATIENT RECEIVED LAST NIGHT. FAMILY REPORTS THAT SHE CONTINUES WITH CONFUSION AT TIMES. ON EXAMINATION, HEART IS REGULAR IN RATE AND RHYTHM. BILATERAL LUNGS ARE NOTED WITH CRACKLES, DIMINISHED THROUGHOUT. ABDOMEN IS ROUND, SOFT, AND NON-TENDER WITH NORMAL BOWEL SOUNDS NOTED IN ALL QUADRANTS. BLE CONTINUE WITH TRACE EDEMA. LEFT LEG CONTINUES WITH ERYTHEMA AND W ARMTH. WOUND TO LEFT LATERAL LEG CONTINUES WITH PURULENT DRAINAGE. HER VITALS THIS MORNING ARE: 97.8-78-18-97%-146/63. LABS WERE OBTAINED. ABNORMAL LAB VALUES INCLUDE THE FOLLOWING: RBC 3.48, HGB 10.9, HCT 31.1, POTASSIUM 3.2, BUN 42, CREATININE 1.28, ALT 10, ALK PHOS 123. A URINE CULTURE REPORTS GROWTH OF E.COLI. WOUND CULTURE OF LEFT LEG REPORTS GROWTH OF MRSA. A CHEST XRAY WAS OBTAINED TODAY AND REVEALED: Improving CHF. SHE IS CURRENTLY RECEIVING NS AT 50ML/HR, INVANZ 1G IV DAILY, DOXYCYCLINE IV BID, LASIX 40MG IV BID, ALBUMIN, ELIQUIS, AND THE POTASSIUM PROTOCOL. SHE IS UTILIZING THE BIPAP AT BEDTIME AND PRN. TODAY, WE WILL DISCONTINUE THE KLONOPIN AND RESTORIL. IF SHE REMAINS STABLE, WE WILL PLAN TO DISCHARGE HOME TOMORROW WITH HOME HEALTH. OTHERWISE, WE PLAN TO FOLLOW UP WITH AM LABS AND CONTINUE TO MONITOR. - Past Medical Family Social History Past Med/Fam/Surg Hx: No changes since H&P Allergies: Allergies codeine Allergy (Verified 06/15/19 07:18) - Review of Systems ROS: No change since H&P - Vital Signs and I&O's Vital Signs: Temperature 98.0 F Pulse Rate [Right Radial] 71 Pulse Rate 61 Respiratory Rate 16 Blood Pressure [Left Arm] 177/81 Blood Pressure [Right Arm] 137/63 Blood Pressure 212/111 O2 Sat by Pulse Oximetry 98 Intake and Output: Intake & Output 06/19/19 06/20/19 06/21/19 06/22/19 11:59 11:59 11:59 11:59 Intake Total 2340 / 2340 1380 / 1380 2099 480 / 480 Output Total 1851 / 1851 1000 / 1000 Balance 489 / 489 380 / 380 2099 480 / 480 - Physical Exam Oriented: Person Eyes: Normal Ear: Normal Nose: Normal Throat: Normal Respiratory: Generalized, Wheezes Cardiovascular: Normal. negative: S3, S4, Murmur : Normal Auscultation: Bowel Sounds: Normal Tenderness: Normal Skin: Red (LEFT LOWER EXTREMITY ), Tender, Hot, Wound Musculoskeletal: Normal Psychiatric: Other (CONFUSION ) Mood Description: Calm Affect: Normal Speech Pattern: Clear, Appropriate - Laboratory and Diagnostics Result Diagrams: 06/21/19 04:43 06/21/19 11:40 Labs: 06/16/19 16:20 Leg - Left Wound Culture - Final Methicillin Resis Staph Aureus 06/15/19 08:17 Urine,Catheterized Urine Culture - Final Escherichia Coli Laboratory WBC 7.4 X10^3/uL (3.6-10.0) 06/21/19 04:43 RBC 3.48 X10^6/uL (3.5-5.4) L 06/21/19 04:43 Hgb 10.9 g/dL (12.0-16.0) L 06/21/19 04:43 Hct 31.1 % (36.0-47.0) L 06/21/19 04:43 MCV 89.3 fL (80.0-100.0) 06/21/19 04:43 MCH 31.3 pg (27.0-34.0) 06/21/19 04:43 MCHC 35.0 g/dL (33.0-35.0) 06/21/19 04:43 RDW 12.4 % (11.6-16.5) 06/21/19 04:43 Plt Count 266 X10^3/uL (150.0-450.0) 06/21/19 04:43 MPV 9.5 fL (7.4-11.0) 06/21/19 04:43 Neut % (Auto) 50.7 % (42.0-75.0) 06/21/19 04:43 Lymph % (Auto) 34.3 % (21.0-51.0) 06/21/19 04:43 [place] % (Auto) 9.3 % (0.0-13.0) 06/21/19 04:43 Eos % (Auto) 4.7 % (0.9-2.9) H 06/21/19 04:43 Baso % (Auto) 1.0 % (0.2-1.0) 06/21/19 04:43 Neut # (Auto) 3.7 x10^3/uL (2.2-4.8) 06/21/19 04:43 Lymph # (Auto) 2.5 X10^3/uL (1.3-2.9) 06/21/19 04:43 [place] # (Auto) 0.7 x10^3/uL (0.3-0.8) 06/21/19 04:43 Eos # (Auto) 0.3 x10^3/uL (0.0-0.2) H 06/21/19 04:43 Baso # (Auto) 0.1 X10^3/uL (0.0-0.1) 06/21/19 04:43 Absolute Nucleated RBC 0.0 /100WBC 06/21/19 04:43 PT 13.9 SECONDS (11.8-14.3) 06/15/19 07:09 INR Target Range - 06/15/19 07:09 INR 1.11 (0.8-1.3) 06/15/19 07:09 Sample Site Lr 06/15/19 09:16 ABG pH 7.440 (7.35-7.45) 06/15/19 09:16 ABG pCO2 44.0 mmHg (35.0-45.0) 06/15/19 09:16 ABG pO2 62.0 mmHg (80.0-100.0) L 06/15/19 09:16 ABG HCO3 29.9 mmol/L (22-26) H 06/15/19 09:16 ABG O2 Saturation 92.0 % (90-100) 06/15/19 09:16 ABG Base Excess 5.1 mmol/L (-2.0-2.0) H 06/15/19 09:16 Juve Test Pos 06/15/19 09:16 A-a Gradient 33.0 mmHg 06/15/19 09:16 FiO2 21.0 06/15/19 09:16 Blood Gas Comments Pt herb well. cdn 06/15/19 09:16 Sodium 138 mmol/L (136-145) 06/21/19 04:43 Corrected Sodium TNP 06/21/19 04:43 Potassium 3.9 mmol/L (3.5-5.1) 06/21/19 11:40 Chloride 98 mmol/L (98-107) 06/21/19 04:43 Carbon Dioxide 31.5 mmol/L (21-32) 06/21/19 04:43 BUN 42 mg/dL (7-18) H 06/21/19 04:43 Creatinine 1.28 mg/dL (0.55-1.02) H 06/21/19 04:43 Est GFR (MDRD) Af Amer 51 (>60) L 06/21/19 04:43 Est GFR (MDRD) Non-Af 42 (>60) L 06/21/19 04:43 Glucose 96 mg/dL (65-99) 06/21/19 04:43 POC Glucose (mg/dL) 78 mg/dL (65-99) 06/15/19 07:11 Lactic Acid 1.1 mmol/L (0.4-2.0) 06/15/19 07:14 Calcium 10.1 mg/dL (8.5-10.1) 06/21/19 04:43 Corrected Calcium TNP 06/21/19 04:43 Magnesium 2.0 mg/dL (1.7-2.9) 06/21/19 04:43 Total Bilirubin 0.40 mg/dL (0.2-1.0) 06/21/19 04:43 AST 25 Units/L (15-37) 06/21/19 04:43 ALT 10 Units/L (12-78) L 06/21/19 04:43 Alkaline Phosphatase 123 Units/L (46-116) H 06/21/19 04:43 Ammonia < 10 umol/L (11-32) L 06/15/19 07:14 Creatine Kinase 24 Units/L (26-192) L 06/16/19 19:18 CK-MB (CK-2) < 1.0 ng/mL (0-4.0) 06/16/19 19:18 CK/CKMB % Calc 4.2 % (<4) 06/16/19 19:18 Troponin I 0.02 ng/mL (0-1.5) 06/16/19 19:18 B-Natriuretic Peptide 1330 pg/mL (0-79) H* 06/15/19 07:14 Total Protein 7.9 g/dL (6.4-8.2) 06/21/19 04:43 Albumin 4.1 g/dL (3.4-5.0) 06/21/19 04:43 Globulin 3.8 g/dL (2.5-4.5) 06/21/19 04:43 Albumin/Globulin Ratio 1.1 Ratio (1.1-2.1) 06/21/19 04:43 TSH 3rd Generation 3.795 uIU/mL (0.358-3.74) H 06/15/19 07:09 Specimen Type Catherized urine 06/21/19 16:56 Urine Color Pale yellow (YELLOW) 06/21/19 16:56 Urine Appearance Clear (CLEAR) 06/21/19 16:56 Urine pH 5.0 (5.0 - 8.0) 06/21/19 16:56 Ur Specific [place] 1.010 (1.000-1.030) 06/21/19 16:56 Urine Protein Negative (NEGATIVE) 06/21/19 16:56 Urine Glucose (UA) Negative (NEGATIVE) 06/21/19 16:56 Urine Ketones Negative (NEGATIVE) 06/21/19 16:56 Urine Occult Blood Negative (NEGATIVE) 06/21/19 16:56 Urine Nitrite Negative (NEGATIVE) 06/21/19 16:56 Urine Bilirubin Negative (NEGATIVE) 06/21/19 16:56 Urine Urobilinogen Normal (NORMAL) 06/21/19 16:56 Ur Leukocyte Esterase Negative (NEGATIVE) 06/21/19 16:56 Urine RBC 5-10 /HPF (0-3) A 06/15/19 08:17 Urine WBC 10-20 /HPF (0-5) A 06/15/19 08:17 Ur Squamous Epith Cells Rare /HPF (NEGATIVE) 06/15/19 08:17 Urine Bacteria 3+ /HPF (NEGATIVE) 06/15/19 08:17 Ur Culture Indicated? Yes/culture set up 06/15/19 08:17 - Plan (1) CHF (congestive heart failure) Status: Acute Qualifiers: Heart failure type: unspecified Heart failure chronicity: acute on chronic Qualified Code(s): I50.9 - Heart failure, unspecified Plan: LASIX 40MG IV BID, SUPPLEMENTAL OXYGEN, CONTINUE TO MONITOR (2) Acute UTI (urinary tract infection) Status: Acute Plan: INVANZ 1G IV DAILY, CONTINUE TO MONITOR (3) MRSA (methicillin resistant Staphylococcus aureus) infection Status: Acute Plan: DOXYCYCLINE IV Q12H, WOUND CARE, CONTINUE TO MONITOR (4) Hypertensive emergency Status: Acute Plan: CONTINUE HOME MEDS (5) Altered mental status Status: Acute Qualifiers: Altered mental status type: transient alteration of awareness Qualified Code(s): R40.4 - Transient alteration of awareness (6) Hypokalemia Status: Acute Plan: POTASSIUM REPLACEMENT PER PROTOCOL (7) Hypoalbuminemia Status: Acute Plan: ALBUMIN 25% IV DAILY, CONTINUE TO MONITOR
[2019-06-21] MEDS: CRESTOR TAB 10 MG PO SCH (21:17)
[2019-06-22 05:19] LABS: BASOPHILS # (AUTO) 0.1 X10^3/uL (0.0-0.1); BASOPHILS % (AUTO) 1.3 % (0.2-1.0); EOSINOPHILS # (AUTO) 0.3 x10^3/uL (0.0-0.2); EOSINOPHILS % (AUTO) 4.7 % (0.9-2.9); HEMATOCRIT 30.3 % (36.0-47.0); HEMOGLOBIN 10.5 g/dL (12.0-16.0); LYMPHOCYTES # (AUTO) 2.7 X10^3/uL (1.3-2.9); MEAN CORPUSCULAR HEMOGLOBIN 30.6 pg (27.0-34.0); MEAN CORPUSCULAR HGB CONC 34.7 g/dL (33.0-35.0); MEAN CORPUSCULAR VOLUME 88.4 fL (80.0-100.0); MEAN PLATELET VOLUME 8.5 fL (7.4-11.0); MONOCYTES # (AUTO) 0.6 x10^3/uL (0.3-0.8); MONOCYTES % (AUTO) 9.5 % (0.0-13.0); NEUTROPHILS # (AUTO) 2.8 x10^3/uL (2.2-4.8); NEUTROPHILS % (AUTO) 42.5 % (42.0-75.0); PLATELET COUNT 258 X10^3/uL (150.0-450.0); RED BLOOD COUNT 3.43 X10^6/uL (3.5-5.4); RED CELL DISTRIBUTION WIDTH 12.4 % (11.6-16.5); WHITE BLOOD COUNT 6.5 X10^3/uL (3.6-10.0)
--- NOTE | 2019-06-22 05:44 | RAD ---
Chest radiograph, single view. History: Shortness of breath Comparison: 06/21/2019. Findings: There is cardiomegaly with slight increase in pulmonary vasculature congestion. There are new bibasilar parenchymal opacities. Conclusion: Increasing pulmonary vasculature congestion and bibasilar parenchymal opacities, which may reflect atelectasis, edema, or pneumonia. Reported By:
[2019-06-22 05:51] LABS: ALANINE AMINOTRANSFERASE 13 Units/L (12-78); ALBUMIN 4.3 g/dL (3.4-5.0); ALKALINE PHOSPHATASE 116 Units/L (46-116); ASPARTATE AMINO TRANSFERASE 25 Units/L (15-37); BLOOD UREA NITROGEN 52 mg/dL (7-18); CALCIUM 10.1 mg/dL (8.5-10.1); CARBON DIOXIDE 31.8 mmol/L (21-32); CHLORIDE 97 mmol/L (98-107); SODIUM 136 mmol/L (136-145); TOTAL PROTEIN 7.8 g/dL (6.4-8.2); eGFR NON BLACK RACES 45 (>60)
[2019-06-22] MEDS: LASIX IVP SCH ×2 (06:04→16:53)
[2019-06-22] MEDS: K-DUR TAB 20 MEQ PO PRN (06:22)
[2019-06-22] MEDS: ELIQUIS PO SCH ×2 (09:17→21:28)
[2019-06-22] MEDS: INVANZ INJ 1 GM VIAL 1 GM in NS 100 ML IV + SPIKE MINIBAG* 100 ML IV SCH (09:17)
[2019-06-22] MEDS: NEURONTIN CAP 100 MG PO SCH ×2 (09:17→21:28)
[2019-06-22] MEDS: TOPROL XL PO SCH (09:17)
[2019-06-22] MEDS: HYDROCHLOROTHIAZIDE 25 MG TAB PO SCH (09:17)
[2019-06-22] MEDS: PATIENT'S HOME MEDICATION TOP SCH ×2 (09:18→21:39)
[2019-06-22] MEDS: PATIENT'S HOME MEDICATION EXT SCH ×4 (09:18→21:41)
[2019-06-22] MEDS: COLACE CAP 100 MG PO SCH ×2 (09:18→21:28)
[2019-06-22] MEDS: VIBRAMYCIN 100 MG in D5W 250 ML IV 250 ML IV SCH ×2 (09:18→21:42)
[2019-06-22] MEDS: NS 1000 ML 1,000 ML IV SCH ×2 (11:03→19:05)
[2019-06-22] MEDS: SYNTHROID 50 mcg TAB PO SCH (16:53)
[2019-06-22] MEDS: CRESTOR TAB 10 MG PO SCH (21:27)
[2019-06-23] MEDS: NS 1000 ML 1,000 ML IV SCH ×2 (01:00→13:51)
[2019-06-23 05:18] LABS: BASOPHILS # (AUTO) 0.1 X10^3/uL (0.0-0.1); BASOPHILS % (AUTO) 1.4 % (0.2-1.0); EOSINOPHILS # (AUTO) 0.2 x10^3/uL (0.0-0.2); EOSINOPHILS % (AUTO) 3.5 % (0.9-2.9); HEMATOCRIT 30.6 % (36.0-47.0); HEMOGLOBIN 10.6 g/dL (12.0-16.0); LYMPHOCYTES # (AUTO) 2.9 X10^3/uL (1.3-2.9); LYMPHOCYTES % (AUTO) 43.4 % (21.0-51.0); MEAN CORPUSCULAR HEMOGLOBIN 30.7 pg (27.0-34.0); MEAN CORPUSCULAR HGB CONC 34.7 g/dL (33.0-35.0); MEAN CORPUSCULAR VOLUME 88.4 fL (80.0-100.0); MEAN PLATELET VOLUME 9.2 fL (7.4-11.0); MONOCYTES # (AUTO) 0.8 x10^3/uL (0.3-0.8); MONOCYTES % (AUTO) 11.7 % (0.0-13.0); NEUTROPHILS # (AUTO) 2.6 x10^3/uL (2.2-4.8); PLATELET COUNT 230 X10^3/uL (150.0-450.0); RED BLOOD COUNT 3.47 X10^6/uL (3.5-5.4); RED CELL DISTRIBUTION WIDTH 12.4 % (11.6-16.5); WHITE BLOOD COUNT 6.6 X10^3/uL (3.6-10.0)
[2019-06-23 05:24] LABS: ALANINE AMINOTRANSFERASE 11 Units/L (12-78); ALKALINE PHOSPHATASE 117 Units/L (46-116); ASPARTATE AMINO TRANSFERASE 28 Units/L (15-37); BLOOD UREA NITROGEN 61 mg/dL (7-18); CALCIUM 10.2 mg/dL (8.5-10.1); CARBON DIOXIDE 29.5 mmol/L (21-32); CHLORIDE 97 mmol/L (98-107); SODIUM 137 mmol/L (136-145); TOTAL PROTEIN 7.5 g/dL (6.4-8.2); eGFR NON BLACK RACES 41 (>60)
[2019-06-23] MEDS: LASIX IVP SCH (06:00)
[2019-06-23] MEDS: INVANZ INJ 1 GM VIAL 1 GM in NS 100 ML IV + SPIKE MINIBAG* 100 ML IV SCH (09:07)
[2019-06-23] MEDS: VIBRAMYCIN 100 MG in D5W 250 ML IV 250 ML IV SCH ×2 (09:07→21:24)
[2019-06-23] MEDS: HYDROCHLOROTHIAZIDE 25 MG TAB PO SCH (09:08)
[2019-06-23] MEDS: TOPROL XL PO SCH (09:08)
[2019-06-23] MEDS: ELIQUIS PO SCH ×2 (09:08→21:23)
[2019-06-23] MEDS: COLACE CAP 100 MG PO SCH ×2 (09:08→21:23)
[2019-06-23] MEDS: NEURONTIN CAP 100 MG PO SCH ×2 (09:08→21:24)
[2019-06-23] MEDS: PATIENT'S HOME MEDICATION EXT SCH ×4 (09:22→21:25)
[2019-06-23] MEDS: PATIENT'S HOME MEDICATION TOP SCH ×2 (09:22→21:25)
--- NOTE | 2019-06-23 10:44 | RAD ---
Examination: Portable AP chest History: CHF SOB Comparison 06/22/2019 Findings: Heart size is similar/stable. There is improved aeration of the lungs since prior study with decreasing infiltrates or edema. The lungs are now essentially clear. There may be slight residual airspace disease in the left lower lung. Surgical clips again noted in the left axilla. Impression: Improved appearance of the lungs since 06/22/2019 with slight residual left base. Reported By:
--- NOTE | 2019-06-23 14:00 | PCM.PROG ---
Progress Note - Progress Note for Day of Date of Exam: 06/23/19 - Subjective Subjective: WAS ADMITTED FOR TREATMENT OF CONGESTIVE HEART FAILURE, HYPERTENSIVE EMERGENCY, URINARY TRACT INFECTION, ALTERED MENTAL STATUS, AND LEFT LOWER EXTREMITY CELLULITIS. TODAY, SHE IS LYING IN BED WITH EYES CLOSED ON MORNING ROUNDS. FAMILY REPORTS THAT SHE CONTINUES WITH CONFUSION AT TIMES. ON EXAMINATION, HEART IS REGULAR IN RATE AND RHYTHM. BILATERAL LUNGS ARE NOTED WITH CRACKLES, DIMINISHED THROUGHOUT. ABDOMEN IS ROUND, SOFT, AND NON-TENDER WITH NORMAL BOWEL SOUNDS NOTED IN ALL QUADRANTS. BLE CONTINUE WITH TRACE EDEMA. LEFT LEG CONTINUES WITH ERYTHEMA AND WARMTH. WOUND TO LEFT LATERAL LEG CONTINUES WITH PURULENT DRAINAGE. A URINE CULTURE REPORTS GROWTH OF E.COLI. WOUND CULTURE OF LEFT LEG REPORTS GROWTH OF MRSA. A CHEST XRAY WAS OBTAINED TODAY AND REVEALED: Improved appearance of the lungs since 06/22/2019 with slight residual left base. SHE IS CURRENTLY RECEIVING NS AT 50ML/HR, INVANZ 1G IV DAILY, DOXYCYCLINE IV BID, LASIX 40MG IV BID, ELIQUIS, AND THE POTASSIUM PROTOCOL. SHE IS UTILIZING THE BIPAP AT BEDTIME AND PRN. FAMILY IS SEEKING [facility] PLACEMENT FOR REHAB THERAPY. - Past Medical Family Social History Past Med/Fam/Surg Hx: No changes since H&P Allergies: Allergies codeine Allergy (Verified 06/15/19 07:18) - Review of Systems ROS: No change since H&P - Vital Signs and I&O's Vital Signs: Temperature 98.0 F Pulse Rate [Right Radial] 69 Pulse Rate 70 Respiratory Rate 18 Blood Pressure [Left Arm] 117/62 Blood Pressure [Right Arm] 134/75 Blood Pressure 212/111 O2 Sat by Pulse Oximetry 96 Intake and Output: Intake & Output 06/21/19 06/22/19 06/23/19 06/24/19 11:59 11:59 11:59 11:59 Intake Total 2099 1580 / 1580 1525 / 1525 Output Total 2300 / 2300 2800 / 2800 Balance 2099 -720 / -720 -1275 / -1275 - Physical Exam Oriented: Person Eyes: Normal Ear: Normal Nose: Normal Throat: Normal Respiratory: Diminished Cardiovascular: Normal, Murmur : Normal Auscultation: Bowel Sounds: Normal Tenderness: Normal Skin: Red (LEFT LOWER EXTREMITY ), Tender, Hot, Wound Musculoskeletal: Normal Psychiatric: Other (CONFUSION ) Mood Description: Calm Affect: Normal Speech Pattern: Clear, Appropriate - Laboratory and Diagnostics Result Diagrams: 06/23/19 04:50 06/23/19 04:50 Labs: 06/16/19 16:20 Leg - Left Wound Culture - Final Methicillin Resis Staph Aureus 06/15/19 08:17 Urine,Catheterized Urine Culture - Final Escherichia Coli Laboratory WBC 6.6 X10^3/uL (3.6-10.0) 06/23/19 04:50 RBC 3.47 X10^6/uL (3.5-5.4) L 06/23/19 04:50 Hgb 10.6 g/dL (12.0-16.0) L 06/23/19 04:50 Hct 30.6 % (36.0-47.0) L 06/23/19 04:50 MCV 88.4 fL (80.0-100.0) 06/23/19 04:50 MCH 30.7 pg (27.0-34.0) 06/23/19 04:50 MCHC 34.7 g/dL (33.0-35.0) 06/23/19 04:50 RDW 12.4 % (11.6-16.5) 06/23/19 04:50 Plt Count 230 X10^3/uL (150.0-450.0) 06/23/19 04:50 MPV 9.2 fL (7.4-11.0) 06/23/19 04:50 Neut % (Auto) 40.0 % (42.0-75.0) L 06/23/19 04:50 Lymph % (Auto) 43.4 % (21.0-51.0) 06/23/19 04:50 [place] % (Auto) 11.7 % (0.0-13.0) 06/23/19 04:50 Eos % (Auto) 3.5 % (0.9-2.9) H 06/23/19 04:50 Baso % (Auto) 1.4 % (0.2-1.0) H 06/23/19 04:50 Neut # (Auto) 2.6 x10^3/uL (2.2-4.8) 06/23/19 04:50 Lymph # (Auto) 2.9 X10^3/uL (1.3-2.9) 06/23/19 04:50 [place] # (Auto) 0.8 x10^3/uL (0.3-0.8) 06/23/19 04:50 Eos # (Auto) 0.2 x10^3/uL (0.0-0.2) 06/23/19 04:50 Baso # (Auto) 0.1 X10^3/uL (0.0-0.1) 06/23/19 04:50 Absolute Nucleated RBC 0.1 /100WBC 06/23/19 04:50 PT 13.9 SECONDS (11.8-14.3) 06/15/19 07:09 INR Target Range - 06/15/19 07:09 INR 1.11 (0.8-1.3) 06/15/19 07:09 Sample Site Lr 06/15/19 09:16 ABG pH 7.440 (7.35-7.45) 06/15/19 09:16 ABG pCO2 44.0 mmHg (35.0-45.0) 06/15/19 09:16 ABG pO2 62.0 mmHg (80.0-100.0) L 06/15/19 09:16 ABG HCO3 29.9 mmol/L (22-26) H 06/15/19 09:16 ABG O2 Saturation 92.0 % (90-100) 06/15/19 09:16 ABG Base Excess 5.1 mmol/L (-2.0-2.0) H 06/15/19 09:16 Juve Test Pos 06/15/19 09:16 A-a Gradient 33.0 mmHg 06/15/19 09:16 FiO2 21.0 06/15/19 09:16 Blood Gas Comments Pt herb well. cdn 06/15/19 09:16 Sodium 137 mmol/L (136-145) 06/23/19 04:50 Corrected Sodium TNP 06/23/19 04:50 Potassium 3.7 mmol/L (3.5-5.1) 06/23/19 04:50 Chloride 97 mmol/L (98-107) L 06/23/19 04:50 Carbon Dioxide 29.5 mmol/L (21-32) 06/23/19 04:50 BUN 61 mg/dL (7-18) H 06/23/19 04:50 Creatinine 1.30 mg/dL (0.55-1.02) H 06/23/19 04:50 Est GFR (MDRD) Af Amer 50 (>60) L 06/23/19 04:50 Est GFR (MDRD) Non-Af 41 (>60) L 06/23/19 04:50 Glucose 94 mg/dL (65-99) 06/23/19 04:50 POC Glucose (mg/dL) 78 mg/dL (65-99) 06/15/19 07:11 Lactic Acid 1.1 mmol/L (0.4-2.0) 06/15/19 07:14 Calcium 10.2 mg/dL (8.5-10.1) H 06/23/19 04:50 Corrected Calcium TNP 06/23/19 04:50 Magnesium 1.9 mg/dL (1.7-2.9) 06/22/19 05:00 Total Bilirubin 0.50 mg/dL (0.2-1.0) 06/23/19 04:50 AST 28 Units/L (15-37) 06/23/19 04:50 ALT 11 Units/L (12-78) L 06/23/19 04:50 Alkaline Phosphatase 117 Units/L (46-116) H 06/23/19 04:50 Ammonia < 10 umol/L (11-32) L 06/15/19 07:14 Creatine Kinase 24 Units/L (26-192) L 06/16/19 19:18 CK-MB (CK-2) < 1.0 ng/mL (0-4.0) 06/16/19 19:18 CK/CKMB % Calc 4.2 % (<4) 06/16/19 19:18 Troponin I 0.02 ng/mL (0-1.5) 06/16/19 19:18 B-Natriuretic Peptide 1330 pg/mL (0-79) H* 06/15/19 07:14 Total Protein 7.5 g/dL (6.4-8.2) 06/23/19 04:50 Albumin 4.0 g/dL (3.4-5.0) 06/23/19 04:50 Globulin 3.5 g/dL (2.5-4.5) 06/23/19 04:50 Albumin/Globulin Ratio 1.1 Ratio (1.1-2.1) 06/23/19 04:50 TSH 3rd Generation 3.795 uIU/mL (0.358-3.74) H 06/15/19 07:09 Specimen Type Catherized urine 06/21/19 16:56 Urine Color Pale yellow (YELLOW) 06/21/19 16:56 Urine Appearance Clear (CLEAR) 06/21/19 16:56 Urine pH 5.0 (5.0 - 8.0) 06/21/19 16:56 Ur Specific [place] 1.010 (1.000-1.030) 06/21/19 16:56 Urine Protein Negative (NEGATIVE) 06/21/19 16:56 Urine Glucose (UA) Negative (NEGATIVE) 06/21/19 16:56 Urine Ketones Negative (NEGATIVE) 06/21/19 16:56 Urine Occult Blood Negative (NEGATIVE) 06/21/19 16:56 Urine Nitrite Negative (NEGATIVE) 06/21/19 16:56 Urine Bilirubin Negative (NEGATIVE) 06/21/19 16:56 Urine Urobilinogen Normal (NORMAL) 06/21/19 16:56 Ur Leukocyte Esterase Negative (NEGATIVE) 06/21/19 16:56 Urine RBC 5-10 /HPF (0-3) A 06/15/19 08:17 Urine WBC 10-20 /HPF (0-5) A 06/15/19 08:17 Ur Squamous Epith Cells Rare /HPF (NEGATIVE) 06/15/19 08:17 Urine Bacteria 3+ /HPF (NEGATIVE) 06/15/19 08:17 Ur Culture Indicated? Yes/culture set up 06/15/19 08:17 - Plan (1) Acute UTI (urinary tract infection) Status: Acute Plan: INVANZ 1G IV DAILY, CONTINUE TO MONITOR (2) Degenerative joint disease of right hip Status: Acute Qualifiers: Osteoarthritis type: primary Qualified Code(s): M16.11 - Unilateral primary osteoarthritis, right hip (3) CHF (congestive heart failure) Status: Acute Qualifiers: Heart failure type: unspecified Heart failure chronicity: acute on chronic Qualified Code(s): I50.9 - Heart failure, unspecified Plan: LASIX 40MG IV BID, SUPPLEMENTAL OXYGEN, CONTINUE TO MONITOR (4) MRSA (methicillin resistant Staphylococcus aureus) infection Status: Acute Plan: DOXYCYCLINE IV Q12H, WOUND CARE, CONTINUE TO MONITOR
[2019-06-23] MEDS: SYNTHROID 50 mcg TAB PO SCH (16:45)
[2019-06-23] MEDS: CRESTOR TAB 10 MG PO SCH (21:23)
[2019-06-24] MEDS: NS 1000 ML 1,000 ML IV SCH ×2 (04:35→17:57)
[2019-06-24 05:29] LABS: BASOPHILS # (AUTO) 0.1 X10^3/uL (0.0-0.1); BASOPHILS % (AUTO) 1.2 % (0.2-1.0); EOSINOPHILS # (AUTO) 0.3 x10^3/uL (0.0-0.2); EOSINOPHILS % (AUTO) 3.7 % (0.9-2.9); HEMOGLOBIN 10.6 g/dL (12.0-16.0); LYMPHOCYTES # (AUTO) 3.3 X10^3/uL (1.3-2.9); LYMPHOCYTES % (AUTO) 48.4 % (21.0-51.0); MEAN CORPUSCULAR HEMOGLOBIN 30.5 pg (27.0-34.0); MEAN CORPUSCULAR HGB CONC 34.3 g/dL (33.0-35.0); MEAN PLATELET VOLUME 9.7 fL (7.4-11.0); MONOCYTES # (AUTO) 0.8 x10^3/uL (0.3-0.8); NEUTROPHILS # (AUTO) 2.3 x10^3/uL (2.2-4.8); NEUTROPHILS % (AUTO) 34.7 % (42.0-75.0); PLATELET COUNT 232 X10^3/uL (150.0-450.0); RED BLOOD COUNT 3.48 X10^6/uL (3.5-5.4); RED CELL DISTRIBUTION WIDTH 12.3 % (11.6-16.5); WHITE BLOOD COUNT 6.8 X10^3/uL (3.6-10.0)
[2019-06-24 05:51] LABS: ALANINE AMINOTRANSFERASE 11 Units/L (12-78); ALBUMIN 3.8 g/dL (3.4-5.0); ALKALINE PHOSPHATASE 128 Units/L (46-116); ASPARTATE AMINO TRANSFERASE 26 Units/L (15-37); BLOOD UREA NITROGEN 59 mg/dL (7-18); CARBON DIOXIDE 28.9 mmol/L (21-32); CHLORIDE 98 mmol/L (98-107); CREATININE 1.16 mg/dL (0.55-1.02); SODIUM 137 mmol/L (136-145); TOTAL PROTEIN 7.4 g/dL (6.4-8.2); eGFR NON BLACK RACES 47 (>60)
[2019-06-24] MEDS: KLOR-CON PO PRN (06:34)
[2019-06-24] MEDS: LASIX IVP SCH (08:03)
[2019-06-24] MEDS: HYDROCHLOROTHIAZIDE 25 MG TAB PO SCH (08:03)
[2019-06-24] MEDS: COLACE CAP 100 MG PO SCH ×2 (08:03→21:11)
[2019-06-24] MEDS: VIBRAMYCIN 100 MG in D5W 250 ML IV 250 ML IV SCH ×2 (08:04→21:11)
[2019-06-24] MEDS: ELIQUIS PO SCH ×2 (08:04→21:11)
[2019-06-24] MEDS: INVANZ INJ 1 GM VIAL 1 GM in NS 100 ML IV + SPIKE MINIBAG* 100 ML IV SCH (08:04)
[2019-06-24] MEDS: NEURONTIN CAP 100 MG PO SCH ×2 (08:04→21:11)
[2019-06-24] MEDS: TOPROL XL PO SCH (08:04)
[2019-06-24] MEDS: PATIENT'S HOME MEDICATION EXT SCH ×4 (08:21→21:11)
[2019-06-24] MEDS: PATIENT'S HOME MEDICATION TOP SCH ×2 (08:21→21:11)
[2019-06-24] MEDS: SYNTHROID 50 mcg TAB PO SCH (17:03)
[2019-06-24] MEDS: CRESTOR TAB 10 MG PO SCH (21:11)
[2019-06-25 05:18] LABS: BASOPHILS # (AUTO) 0.1 X10^3/uL (0.0-0.1); BASOPHILS % (AUTO) 1.2 % (0.2-1.0); EOSINOPHILS # (AUTO) 0.2 x10^3/uL (0.0-0.2); EOSINOPHILS % (AUTO) 3.4 % (0.9-2.9); HEMATOCRIT 33.4 % (36.0-47.0); HEMOGLOBIN 11.4 g/dL (12.0-16.0); LYMPHOCYTES # (AUTO) 2.9 X10^3/uL (1.3-2.9); LYMPHOCYTES % (AUTO) 41.8 % (21.0-51.0); MEAN CORPUSCULAR HEMOGLOBIN 30.6 pg (27.0-34.0); MEAN CORPUSCULAR VOLUME 89.9 fL (80.0-100.0); MEAN PLATELET VOLUME 9.6 fL (7.4-11.0); MONOCYTES # (AUTO) 0.7 x10^3/uL (0.3-0.8); MONOCYTES % (AUTO) 10.6 % (0.0-13.0); PLATELET COUNT 247 X10^3/uL (150.0-450.0); RED BLOOD COUNT 3.72 X10^6/uL (3.5-5.4); RED CELL DISTRIBUTION WIDTH 12.8 % (11.6-16.5)
[2019-06-25 05:32] LABS: ALANINE AMINOTRANSFERASE 13 Units/L (12-78); ALBUMIN 3.9 g/dL (3.4-5.0); ALKALINE PHOSPHATASE 146 Units/L (46-116); ASPARTATE AMINO TRANSFERASE 27 Units/L (15-37); BLOOD UREA NITROGEN 55 mg/dL (7-18); CALCIUM 10.3 mg/dL (8.5-10.1); CARBON DIOXIDE 28.9 mmol/L (21-32); CHLORIDE 98 mmol/L (98-107); CREATININE 1.15 mg/dL (0.55-1.02); SODIUM 137 mmol/L (136-145); TOTAL PROTEIN 7.7 g/dL (6.4-8.2); eGFR NON BLACK RACES 48 (>60)
[2019-06-25] MEDS: NS 1000 ML 1,000 ML IV SCH ×2 (06:35→21:03)
[2019-06-25] MEDS: PATIENT'S HOME MEDICATION EXT SCH ×4 (08:30→21:04)
[2019-06-25] MEDS: PATIENT'S HOME MEDICATION TOP SCH ×2 (08:30→21:04)
[2019-06-25] MEDS: ELIQUIS PO SCH ×2 (08:32→22:30)
[2019-06-25] MEDS: NEURONTIN CAP 100 MG PO SCH ×2 (08:32→21:03)
[2019-06-25] MEDS: COLACE CAP 100 MG PO SCH ×2 (08:32→21:02)
[2019-06-25] MEDS: LASIX IVP SCH (08:32)
[2019-06-25] MEDS: INVANZ INJ 1 GM VIAL 1 GM in NS 100 ML IV + SPIKE MINIBAG* 100 ML IV SCH (08:32)
[2019-06-25] MEDS: TOPROL XL PO SCH (08:33)
[2019-06-25] MEDS: HYDROCHLOROTHIAZIDE 25 MG TAB PO SCH (08:34)
[2019-06-25] MEDS: VIBRAMYCIN 100 MG in D5W 250 ML IV 250 ML IV SCH ×2 (09:46→21:01)
--- NOTE | 2019-06-25 14:00 | PCM.PROG ---
Progress Note - Progress Note for Day of Date of Exam: 06/25/19 - Subjective Subjective: WAS ADMITTED FOR TREATMENT OF CONGESTIVE HEART FAILURE, HYPERTENSIVE EMERGENCY, URINARY TRACT INFECTION, ALTERED MENTAL STATUS, AND LEFT LOWER EXTREMITY CELLULITIS. TODAY, SHE IS LYING IN BED WITH EYES CLOSED ON MORNING ROUNDS. FAMILY REPORTS THAT SHE CONTINUES WITH CONFUSION AT TIMES. ON EXAMINATION, HEART IS REGULAR IN RATE AND RHYTHM. BILATERAL LUNGS ARE NOTED WITH CRACKLES, DIMINISHED THROUGHOUT. ABDOMEN IS ROUND, SOFT, AND NON-TENDER WITH NORMAL BOWEL SOUNDS NOTED IN ALL QUADRANTS. BLE CONTINUE WITH TRACE EDEMA. LEFT LEG WOUND TO LEFT LATERAL LEG WITH DRY HEALED WOUND, NO DRAINAGE OR REDNESS. A URINE CULTURE REPORTS GROWTH OF E.COLI. WOUND CULTURE OF LEFT LEG REPORTS GROWTH OF MRSA. PT IS CURRENTLY ON IV ATBX THERAPY. WILL OBTAIN REPEAT CXR TODAY. PT LASIX DECREASED TO 40IV DAILY, DENIES ANY INCREASED SOB OR COUGH TODAY, LOWER EXTREMITY EDEMA RESOLVED, WE ARE AWAITING [facility] PLACEMENT FOR REHAB THERAPY. - Past Medical Family Social History Past Med/Fam/Surg Hx: No changes since H&P Allergies: Allergies codeine Allergy (Verified 06/15/19 07:18) - Review of Systems ROS: No change since H&P - Vital Signs and I&O's Vital Signs: Temperature 97.8 F Pulse Rate [Right Radial] 67 Pulse Rate 71 Respiratory Rate 18 Blood Pressure [Left Arm] 120/62 Blood Pressure [Right Arm] 124/58 Blood Pressure 212/111 O2 Sat by Pulse Oximetry 98 Intake and Output: Intake & Output 06/23/19 06/24/19 06/25/19 06/26/19 11:59 11:59 11:59 11:59 Intake Total 1525 / 1525 2450 / 2450 1969 / 1969 Output Total 2800 / 2800 2625 / 2625 2400 / 2400 Balance -1275 / -1275 -175 / -175 -430 / -430 - Physical Exam Oriented: Person Eyes: Normal Ear: Normal Nose: Normal Throat: Normal Respiratory: Diminished Cardiovascular: Normal, Murmur : Normal Auscultation: Bowel Sounds: Normal Tenderness: Normal Skin: Decreased [place] Musculoskeletal: Normal Psychiatric: Other (CONFUSION ) Mood Description: Calm Affect: Normal Speech Pattern: Clear, Appropriate - Laboratory and Diagnostics Result Diagrams: 06/25/19 04:52 06/25/19 04:52 Labs: 06/16/19 16:20 Leg - Left Wound Culture - Final Methicillin Resis Staph Aureus 06/15/19 08:17 Urine,Catheterized Urine Culture - Final Escherichia Coli Laboratory WBC 7.0 X10^3/uL (3.6-10.0) 06/25/19 04:52 RBC 3.72 X10^6/uL (3.5-5.4) 06/25/19 04:52 Hgb 11.4 g/dL (12.0-16.0) L 06/25/19 04:52 Hct 33.4 % (36.0-47.0) L 06/25/19 04:52 MCV 89.9 fL (80.0-100.0) 06/25/19 04:52 MCH 30.6 pg (27.0-34.0) 06/25/19 04:52 MCHC 34.0 g/dL (33.0-35.0) 06/25/19 04:52 RDW 12.8 % (11.6-16.5) 06/25/19 04:52 Plt Count 247 X10^3/uL (150.0-450.0) 06/25/19 04:52 MPV 9.6 fL (7.4-11.0) 06/25/19 04:52 Neut % (Auto) 43.0 % (42.0-75.0) 06/25/19 04:52 Lymph % (Auto) 41.8 % (21.0-51.0) 06/25/19 04:52 [place] % (Auto) 10.6 % (0.0-13.0) 06/25/19 04:52 Eos % (Auto) 3.4 % (0.9-2.9) H 06/25/19 04:52 Baso % (Auto) 1.2 % (0.2-1.0) H 06/25/19 04:52 Neut # (Auto) 3.0 x10^3/uL (2.2-4.8) 06/25/19 04:52 Lymph # (Auto) 2.9 X10^3/uL (1.3-2.9) 06/25/19 04:52 [place] # (Auto) 0.7 x10^3/uL (0.3-0.8) 06/25/19 04:52 Eos # (Auto) 0.2 x10^3/uL (0.0-0.2) 06/25/19 04:52 Baso # (Auto) 0.1 X10^3/uL (0.0-0.1) 06/25/19 04:52 Absolute Nucleated RBC 0.1 /100WBC 06/25/19 04:52 PT 13.9 SECONDS (11.8-14.3) 06/15/19 07:09 INR Target Range - 06/15/19 07:09 INR 1.11 (0.8-1.3) 06/15/19 07:09 Sample Site Lr 06/15/19 09:16 ABG pH 7.440 (7.35-7.45) 06/15/19 09:16 ABG pCO2 44.0 mmHg (35.0-45.0) 06/15/19 09:16 ABG pO2 62.0 mmHg (80.0-100.0) L 06/15/19 09:16 ABG HCO3 29.9 mmol/L (22-26) H 06/15/19 09:16 ABG O2 Saturation 92.0 % (90-100) 06/15/19 09:16 ABG Base Excess 5.1 mmol/L (-2.0-2.0) H 06/15/19 09:16 Juve Test Pos 06/15/19 09:16 A-a Gradient 33.0 mmHg 06/15/19 09:16 FiO2 21.0 06/15/19 09:16 Blood Gas Comments Pt herb well. cdn 06/15/19 09:16 Sodium 137 mmol/L (136-145) 06/25/19 04:52 Corrected Sodium TNP 06/25/19 04:52 Potassium 3.8 mmol/L (3.5-5.1) 06/25/19 04:52 Chloride 98 mmol/L (98-107) 06/25/19 04:52 Carbon Dioxide 28.9 mmol/L (21-32) 06/25/19 04:52 BUN 55 mg/dL (7-18) H 06/25/19 04:52 Creatinine 1.15 mg/dL (0.55-1.02) H 06/25/19 04:52 Est GFR (MDRD) Af Amer 58 (>60) L 06/25/19 04:52 Est GFR (MDRD) Non-Af 48 (>60) L 06/25/19 04:52 Glucose 100 mg/dL (65-99) H 06/25/19 04:52 POC Glucose (mg/dL) 78 mg/dL (65-99) 06/15/19 07:11 Lactic Acid 1.1 mmol/L (0.4-2.0) 06/15/19 07:14 Calcium 10.3 mg/dL (8.5-10.1) H 06/25/19 04:52 Corrected Calcium TNP 06/25/19 04:52 Magnesium 1.9 mg/dL (1.7-2.9) 06/22/19 05:00 Total Bilirubin 0.50 mg/dL (0.2-1.0) 06/25/19 04:52 AST 27 Units/L (15-37) 06/25/19 04:52 ALT 13 Units/L (12-78) 06/25/19 04:52 Alkaline Phosphatase 146 Units/L (46-116) H 06/25/19 04:52 Ammonia < 10 umol/L (11-32) L 06/15/19 07:14 Creatine Kinase 24 Units/L (26-192) L 06/16/19 19:18 CK-MB (CK-2) < 1.0 ng/mL (0-4.0) 06/16/19 19:18 CK/CKMB % Calc 4.2 % (<4) 06/16/19 19:18 Troponin I 0.02 ng/mL (0-1.5) 06/16/19 19:18 B-Natriuretic Peptide 1330 pg/mL (0-79) H* 06/15/19 07:14 Total Protein 7.7 g/dL (6.4-8.2) 06/25/19 04:52 Albumin 3.9 g/dL (3.4-5.0) 06/25/19 04:52 Globulin 3.8 g/dL (2.5-4.5) 06/25/19 04:52 Albumin/Globulin Ratio 1.0 Ratio (1.1-2.1) L 06/25/19 04:52 TSH 3rd Generation 3.795 uIU/mL (0.358-3.74) H 06/15/19 07:09 Specimen Type Catherized urine 06/21/19 16:56 Urine Color Pale yellow (YELLOW) 06/21/19 16:56 Urine Appearance Clear (CLEAR) 06/21/19 16:56 Urine pH 5.0 (5.0 - 8.0) 06/21/19 16:56 Ur Specific [place] 1.010 (1.000-1.030) 06/21/19 16:56 Urine Protein Negative (NEGATIVE) 06/21/19 16:56 Urine Glucose (UA) Negative (NEGATIVE) 06/21/19 16:56 Urine Ketones Negative (NEGATIVE) 06/21/19 16:56 Urine Occult Blood Negative (NEGATIVE) 06/21/19 16:56 Urine Nitrite Negative (NEGATIVE) 06/21/19 16:56 Urine Bilirubin Negative (NEGATIVE) 06/21/19 16:56 Urine Urobilinogen Normal (NORMAL) 06/21/19 16:56 Ur Leukocyte Esterase Negative (NEGATIVE) 06/21/19 16:56 Urine RBC 5-10 /HPF (0-3) A 06/15/19 08:17 Urine WBC 10-20 /HPF (0-5) A 06/15/19 08:17 Ur Squamous Epith Cells Rare /HPF (NEGATIVE) 06/15/19 08:17 Urine Bacteria 3+ /HPF (NEGATIVE) 06/15/19 08:17 Ur Culture Indicated? Yes/culture set up 06/15/19 08:17 - Plan (1) Acute UTI (urinary tract infection) Status: Acute Plan: INVANZ 1G IV DAILY, CONTINUE TO MONITOR (2) Degenerative joint disease of right hip Status: Acute Qualifiers: Osteoarthritis type: primary Qualified Code(s): M16.11 - Unilateral primary osteoarthritis, right hip (3) CHF (congestive heart failure) Status: Acute Qualifiers: Heart failure type: unspecified Heart failure chronicity: acute on chronic Qualified Code(s): I50.9 - Heart failure, unspecified Plan: LASIX 40MG IV , SUPPLEMENTAL OXYGEN, CONTINUE TO MONITOR (4) MRSA (methicillin resistant Staphylococcus aureus) infection Status: Acute Plan: DOXYCYCLINE IV Q12H, WOUND CARE, CONTINUE TO MONITOR
--- NOTE | 2019-06-25 15:40 | RAD ---
HISTORY: Shortness of breath, CHF Study: Single-view chest, done portably Comparison: 06/23/2019. Findings: Trachea is. Heart size is stable with aortic uncoiling. Atherosclerotic calcification is seen involving the aortic arch. Right lung is hyperinflated and clear. There is hyperinflation of the left lung with atelectasis or infiltrate present in left lung base plus a small amount pleural fluid. No pneumothorax is seen. There surgical clips present in left axilla. Osseous structures intact IMPRESSION: Hyperinflation of the lungs with atelectasis or infiltrate and small effusion in the left lung base. There is no overt CHF. Reported By:
[2019-06-25] MEDS: SYNTHROID 50 mcg TAB PO SCH (16:45)
[2019-06-25] MEDS ORDERED: BUTT CREAM (COMPOUND) TOP PRN (17:15)
[2019-06-25] MEDS: CRESTOR TAB 10 MG PO SCH (21:03)
[2019-06-26 05:21] LABS: BASOPHILS # (AUTO) 0.1 X10^3/uL (0.0-0.1); BASOPHILS % (AUTO) 1.9 % (0.2-1.0); EOSINOPHILS # (AUTO) 0.2 x10^3/uL (0.0-0.2); EOSINOPHILS % (AUTO) 3.2 % (0.9-2.9); HEMATOCRIT 32.6 % (36.0-47.0); HEMOGLOBIN 10.9 g/dL (12.0-16.0); LYMPHOCYTES # (AUTO) 3.1 X10^3/uL (1.3-2.9); LYMPHOCYTES % (AUTO) 49.4 % (21.0-51.0); MEAN CORPUSCULAR HGB CONC 33.3 g/dL (33.0-35.0); MEAN CORPUSCULAR VOLUME 89.9 fL (80.0-100.0); MONOCYTES # (AUTO) 0.7 x10^3/uL (0.3-0.8); MONOCYTES % (AUTO) 11.1 % (0.0-13.0); NEUTROPHILS # (AUTO) 2.2 x10^3/uL (2.2-4.8); NEUTROPHILS % (AUTO) 34.4 % (42.0-75.0); PLATELET COUNT 238 X10^3/uL (150.0-450.0); RED BLOOD COUNT 3.63 X10^6/uL (3.5-5.4); RED CELL DISTRIBUTION WIDTH 12.3 % (11.6-16.5); WHITE BLOOD COUNT 6.3 X10^3/uL (3.6-10.0)
[2019-06-26 05:26] LABS: ALANINE AMINOTRANSFERASE 10 Units/L (12-78); ALBUMIN 3.7 g/dL (3.4-5.0); ALKALINE PHOSPHATASE 138 Units/L (46-116); ASPARTATE AMINO TRANSFERASE 23 Units/L (15-37); BLOOD UREA NITROGEN 57 mg/dL (7-18); CALCIUM 10.2 mg/dL (8.5-10.1); CARBON DIOXIDE 29.8 mmol/L (21-32); CHLORIDE 98 mmol/L (98-107); CREATININE 1.19 mg/dL (0.55-1.02); SODIUM 136 mmol/L (136-145); TOTAL PROTEIN 7.4 g/dL (6.4-8.2); eGFR NON BLACK RACES 46 (>60)
--- NOTE | 2019-06-26 06:15 | RAD ---
HISTORY: Shortness of breath Study: Chest AP portable Comparison: 06/25/2019, 06/23/2019 Findings: The heart is mildly enlarged. No congestive heart failure is noted. The aorta is calcified. The lizzette are normal. The lungs are well inflated. The right lung and left upper lung whelan remain clear. Increased density retrocardiac area left lower lobe unchanged and due either to infiltrate, effusion, atelectasis or combination. The bony thorax is unremarkable. IMPRESSION: Mild cardiac enlargement without congestive heart failure Persistent increased density retrocardiac area left lower lobe. Differential diagnosis as above Reported By:
[2019-06-26] MEDS: LASIX IVP SCH (08:55)
[2019-06-26] MEDS: VIBRAMYCIN 100 MG in D5W 250 ML IV 250 ML IV SCH (08:55)
[2019-06-26] MEDS: INVANZ INJ 1 GM VIAL 1 GM in NS 100 ML IV + SPIKE MINIBAG* 100 ML IV SCH (08:55)
[2019-06-26] MEDS: COLACE CAP 100 MG PO SCH ×2 (08:56→20:37)
[2019-06-26] MEDS: NEURONTIN CAP 100 MG PO SCH ×2 (08:56→20:38)
[2019-06-26] MEDS: ELIQUIS PO SCH ×2 (08:56→20:37)
[2019-06-26] MEDS: HYDROCHLOROTHIAZIDE 25 MG TAB PO SCH (08:56)
[2019-06-26] MEDS: PATIENT'S HOME MEDICATION EXT SCH ×4 (08:58→20:39)
[2019-06-26] MEDS: PATIENT'S HOME MEDICATION TOP SCH ×2 (08:58→20:38)
[2019-06-26] MEDS: TOPROL XL PO SCH (08:59)
[2019-06-26] MEDS: SYNTHROID 50 mcg TAB PO SCH (16:27)
[2019-06-26] MEDS: CRESTOR TAB 10 MG PO SCH (20:37)
[2019-06-26] MEDS: VIBRAMYCIN PO SCH (20:39)
--- NOTE | 2019-06-27 05:37 | RAD ---
Chest, one view Indication: Shortness of breath Comparison: 06/26/2019 Findings: Heart is stable in size. The lungs are hyperinflated and there are unchanged left basilar opacities, which again either represent effusion, atelectasis, pneumonia or a combination. No pneumothorax. Impression: Stable chest exam. Reported By:
[2019-06-27 06:42] LABS: BASOPHILS # (AUTO) 0.1 X10^3/uL (0.0-0.1); BASOPHILS % (AUTO) 1.3 % (0.2-1.0); EOSINOPHILS # (AUTO) 0.1 x10^3/uL (0.0-0.2); EOSINOPHILS % (AUTO) 2.2 % (0.9-2.9); HEMATOCRIT 33.2 % (36.0-47.0); HEMOGLOBIN 11.5 g/dL (12.0-16.0); LYMPHOCYTES # (AUTO) 2.8 X10^3/uL (1.3-2.9); LYMPHOCYTES % (AUTO) 41.9 % (21.0-51.0); MEAN CORPUSCULAR HEMOGLOBIN 30.3 pg (27.0-34.0); MEAN CORPUSCULAR HGB CONC 34.5 g/dL (33.0-35.0); MEAN CORPUSCULAR VOLUME 87.8 fL (80.0-100.0); MEAN PLATELET VOLUME 8.7 fL (7.4-11.0); MONOCYTES # (AUTO) 0.9 x10^3/uL (0.3-0.8); NEUTROPHILS # (AUTO) 2.7 x10^3/uL (2.2-4.8); NEUTROPHILS % (AUTO) 41.6 % (42.0-75.0); PLATELET COUNT 234 X10^3/uL (150.0-450.0); RED BLOOD COUNT 3.79 X10^6/uL (3.5-5.4); RED CELL DISTRIBUTION WIDTH 12.7 % (11.6-16.5); WHITE BLOOD COUNT 6.6 X10^3/uL (3.6-10.0)
[2019-06-27 06:52] LABS: ALANINE AMINOTRANSFERASE 13 Units/L (12-78); ALBUMIN 3.9 g/dL (3.4-5.0); ALKALINE PHOSPHATASE 156 Units/L (46-116); ASPARTATE AMINO TRANSFERASE 25 Units/L (15-37); BLOOD UREA NITROGEN 60 mg/dL (7-18); CALCIUM 10.7 mg/dL (8.5-10.1); CARBON DIOXIDE 30.1 mmol/L (21-32); CHLORIDE 98 mmol/L (98-107); CREATININE 1.22 mg/dL (0.55-1.02); SODIUM 138 mmol/L (136-145); TOTAL PROTEIN 7.9 g/dL (6.4-8.2); eGFR NON BLACK RACES 45 (>60)
[2019-06-27] MEDS: ELIQUIS PO SCH (08:56)
[2019-06-27] MEDS: VIBRAMYCIN PO SCH (08:56)
[2019-06-27] MEDS: TOPROL XL PO SCH (08:56)
[2019-06-27] MEDS: NEURONTIN CAP 100 MG PO SCH (08:56)
[2019-06-27] MEDS: K-DUR TAB 20 MEQ PO PRN (08:56)
[2019-06-27] MEDS: COLACE CAP 100 MG PO SCH (08:57)
[2019-06-27] MEDS: HYDROCHLOROTHIAZIDE 25 MG TAB PO SCH (08:57)
[2019-06-27] MEDS: PATIENT'S HOME MEDICATION TOP SCH (08:57)
[2019-06-27] MEDS: PATIENT'S HOME MEDICATION EXT SCH (08:57)
--- NOTE | 2019-06-27 09:40 | PCM.PROG ---
Progress Note - Progress Note for Day of Date of Exam: 06/26/19 - Subjective Subjective: WAS ADMITTED FOR TREATMENT OF CONGESTIVE HEART FAILURE, HYPERTENSIVE EMERGENCY, URINARY TRACT INFECTION, ALTERED MENTAL STATUS, AND LEFT LOWER EXTREMITY CELLULITIS. TODAY, SHE IS LYING IN BED WITH EYES CLOSED ON MORNING ROUNDS. FAMILY REPORTS THAT SHE CONTINUES WITH CONFUSION AT TIMES AND REMAINS WEAK. ON EXAMINATION, HEART IS REGULAR IN RATE AND RHYTHM. BILATERAL LUNGS ARE NOTED WITH CRACKLES, DIMINISHED THROUGHOUT. ABDOMEN IS ROUND, SOFT, AND NON-TENDER WITH NORMAL BOWEL SOUNDS NOTED IN ALL QUADRANTS. BLE CONTINUE WITH TRACE EDEMA. LEFT LEG CONTINUES WITH ERYTHEMA AND WARMTH. HER VITALS THIS MORNING ARE: 98.1-74-20-94%-129/63. LABS WERE OBTAINED. ABNORMAL LAB VALUES INCLUDE THE FOLLOWING: HGB 10.9, HCT 32.6, BUN 57, CREATININE 1.19, CALCIUM 10.2, ALT 10, ALK PHOS 138. A URINE CULTURE REPORTS GROWTH OF E.COLI. WOUND CULTURE OF LEFT LEG REPORTS GROWTH OF MRSA. A CHEST XRAY WAS OBTAINED TODAY AND REVEALED: Mild cardiac enlargement without congestive heart failure. Persistent increased density retrocardiac area left lower lobe. Differential diagnosis as above. SHE IS CURRENTLY RECEIVING NS AT 50ML/HR, INVANZ 1G IV DAILY, DOXYCYCLINE IV BID, LASIX 40MG IV BID, ALBUMIN, ELIQUIS, AND THE POTASSIUM PROTOCOL. SHE IS UTILIZING THE BIPAP AT BEDTIME AND PRN. FAMILY REQUEST PLACEMENT AT INTERMEDIATE CARE FOR PHYSICAL THERAPY AND REHAB. WE WILL CONTINUE WITH CURRENT PLAN OF CARE TODAY. OTHERWISE, WE PLAN TO FOLLOW UP WITH AM LABS AND CONTINUE TO MONITOR. - Past Medical Family Social History Past Med/Fam/Surg Hx: No changes since H&P Allergies: Allergies codeine Allergy (Verified 06/15/19 07:18) - Review of Systems ROS: No change since H&P - Vital Signs and I&O's Vital Signs: Temperature 97.8 F Pulse Rate [Right Radial] 73 Pulse Rate 71 Respiratory Rate 20 Blood Pressure [Left Arm] 146/72 Blood Pressure [Right Arm] 129/63 Blood Pressure 212/111 O2 Sat by Pulse Oximetry 96 Intake and Output: Intake & Output 06/24/19 06/25/19 06/26/19 06/27/19 11:59 11:59 11:59 11:59 Intake Total 2450 / 2450 1969 740 / 740 Output Total 2625 / 2625 2400 / 2400 2350 / 2350 950 / 950 Balance -175 / -175 -430 / -430 -380 / -380 -210 / -210 - Physical Exam Oriented: Person Eyes: Normal Ear: Normal Nose: Normal Throat: Normal Respiratory: Diminished Cardiovascular: Normal, Murmur : Normal Auscultation: Bowel Sounds: Normal Palpation: Normal Tenderness: Normal Skin: Normal Musculoskeletal: Normal Psychiatric: Other (CONFUSION ) Mood Description: Calm Affect: Normal Speech Pattern: Clear, Appropriate - Laboratory and Diagnostics Result Diagrams: 06/27/19 06:30 06/27/19 06:30 Labs: 06/16/19 16:20 Leg - Left Wound Culture - Final Methicillin Resis Staph Aureus 06/15/19 08:17 Urine,Catheterized Urine Culture - Final Escherichia Coli Laboratory WBC 6.6 X10^3/uL (3.6-10.0) 06/27/19 06:30 RBC 3.79 X10^6/uL (3.5-5.4) 06/27/19 06:30 Hgb 11.5 g/dL (12.0-16.0) L 06/27/19 06:30 Hct 33.2 % (36.0-47.0) L 06/27/19 06:30 MCV 87.8 fL (80.0-100.0) 06/27/19 06:30 MCH 30.3 pg (27.0-34.0) 06/27/19 06:30 MCHC 34.5 g/dL (33.0-35.0) 06/27/19 06:30 RDW 12.7 % (11.6-16.5) 06/27/19 06:30 Plt Count 234 X10^3/uL (150.0-450.0) 06/27/19 06:30 MPV 8.7 fL (7.4-11.0) 06/27/19 06:30 Neut % (Auto) 41.6 % (42.0-75.0) L 06/27/19 06:30 Lymph % (Auto) 41.9 % (21.0-51.0) 06/27/19 06:30 [place] % (Auto) 13.0 % (0.0-13.0) 06/27/19 06:30 Eos % (Auto) 2.2 % (0.9-2.9) 06/27/19 06:30 Baso % (Auto) 1.3 % (0.2-1.0) H 06/27/19 06:30 Neut # (Auto) 2.7 x10^3/uL (2.2-4.8) 06/27/19 06:30 Lymph # (Auto) 2.8 X10^3/uL (1.3-2.9) 06/27/19 06:30 [place] # (Auto) 0.9 x10^3/uL (0.3-0.8) H 06/27/19 06:30 Eos # (Auto) 0.1 x10^3/uL (0.0-0.2) 06/27/19 06:30 Baso # (Auto) 0.1 X10^3/uL (0.0-0.1) 06/27/19 06:30 Absolute Nucleated RBC 0.1 /100WBC 06/27/19 06:30 PT 13.9 SECONDS (11.8-14.3) 06/15/19 07:09 INR Target Range - 06/15/19 07:09 INR 1.11 (0.8-1.3) 06/15/19 07:09 Sample Site Lr 06/15/19 09:16 ABG pH 7.440 (7.35-7.45) 06/15/19 09:16 ABG pCO2 44.0 mmHg (35.0-45.0) 06/15/19 09:16 ABG pO2 62.0 mmHg (80.0-100.0) L 06/15/19 09:16 ABG HCO3 29.9 mmol/L (22-26) H 06/15/19 09:16 ABG O2 Saturation 92.0 % (90-100) 06/15/19 09:16 ABG Base Excess 5.1 mmol/L (-2.0-2.0) H 06/15/19 09:16 Juve Test Pos 06/15/19 09:16 A-a Gradient 33.0 mmHg 06/15/19 09:16 FiO2 21.0 06/15/19 09:16 Blood Gas Comments Pt herb well. cdn 06/15/19 09:16 Sodium 138 mmol/L (136-145) 06/27/19 06:30 Corrected Sodium TNP 06/27/19 06:30 Potassium 3.4 mmol/L (3.5-5.1) L 06/27/19 06:30 Chloride 98 mmol/L (98-107) 06/27/19 06:30 Carbon Dioxide 30.1 mmol/L (21-32) 06/27/19 06:30 BUN 60 mg/dL (7-18) H 06/27/19 06:30 Creatinine 1.22 mg/dL (0.55-1.02) H 06/27/19 06:30 Est GFR (MDRD) Af Amer 54 (>60) L 06/27/19 06:30 Est GFR (MDRD) Non-Af 45 (>60) L 06/27/19 06:30 Glucose 97 mg/dL (65-99) 06/27/19 06:30 POC Glucose (mg/dL) 78 mg/dL (65-99) 06/15/19 07:11 Lactic Acid 1.1 mmol/L (0.4-2.0) 06/15/19 07:14 Calcium 10.7 mg/dL (8.5-10.1) H 06/27/19 06:30 Corrected Calcium TNP 06/27/19 06:30 Magnesium 1.9 mg/dL (1.7-2.9) 06/22/19 05:00 Total Bilirubin 0.60 mg/dL (0.2-1.0) 06/27/19 06:30 AST 25 Units/L (15-37) 06/27/19 06:30 ALT 13 Units/L (12-78) 06/27/19 06:30 Alkaline Phosphatase 156 Units/L (46-116) H 06/27/19 06:30 Ammonia < 10 umol/L (11-32) L 06/15/19 07:14 Creatine Kinase 24 Units/L (26-192) L 06/16/19 19:18 CK-MB (CK-2) < 1.0 ng/mL (0-4.0) 06/16/19 19:18 CK/CKMB % Calc 4.2 % (<4) 06/16/19 19:18 Troponin I 0.02 ng/mL (0-1.5) 06/16/19 19:18 B-Natriuretic Peptide 1330 pg/mL (0-79) H* 06/15/19 07:14 Total Protein 7.9 g/dL (6.4-8.2) 06/27/19 06:30 Albumin 3.9 g/dL (3.4-5.0) 06/27/19 06:30 Globulin 4.0 g/dL (2.5-4.5) 06/27/19 06:30 Albumin/Globulin Ratio 1.0 Ratio (1.1-2.1) L 06/27/19 06:30 TSH 3rd Generation 3.795 uIU/mL (0.358-3.74) H 06/15/19 07:09 Specimen Type Catherized urine 06/21/19 16:56 Urine Color Pale yellow (YELLOW) 06/21/19 16:56 Urine Appearance Clear (CLEAR) 06/21/19 16:56 Urine pH 5.0 (5.0 - 8.0) 06/21/19 16:56 Ur Specific [place] 1.010 (1.000-1.030) 06/21/19 16:56 Urine Protein Negative (NEGATIVE) 06/21/19 16:56 Urine Glucose (UA) Negative (NEGATIVE) 06/21/19 16:56 Urine Ketones Negative (NEGATIVE) 06/21/19 16:56 Urine Occult Blood Negative (NEGATIVE) 06/21/19 16:56 Urine Nitrite Negative (NEGATIVE) 06/21/19 16:56 Urine Bilirubin Negative (NEGATIVE) 06/21/19 16:56 Urine Urobilinogen Normal (NORMAL) 06/21/19 16:56 Ur Leukocyte Esterase Negative (NEGATIVE) 06/21/19 16:56 Urine RBC 5-10 /HPF (0-3) A 06/15/19 08:17 Urine WBC 10-20 /HPF (0-5) A 06/15/19 08:17 Ur Squamous Epith Cells Rare /HPF (NEGATIVE) 06/15/19 08:17 Urine Bacteria 3+ /HPF (NEGATIVE) 06/15/19 08:17 Ur Culture Indicated? Yes/culture set up 06/15/19 08:17 - Plan (1) CHF (congestive heart failure) Status: Acute Qualifiers: Heart failure type: unspecified Heart failure chronicity: acute on chronic Qualified Code(s): I50.9 - Heart failure, unspecified Plan: LASIX 40MG IV , SUPPLEMENTAL OXYGEN, CONTINUE TO MONITOR (2) Acute UTI (urinary tract infection) Status: Acute Plan: INVANZ 1G IV DAILY, CONTINUE TO MONITOR (3) MRSA (methicillin resistant Staphylococcus aureus) infection Status: Acute Plan: DOXYCYCLINE IV Q12H, WOUND CARE, CONTINUE TO MONITOR (4) Hypertensive emergency Status: Acute Plan: CONTINUE HOME MEDS (5) Altered mental status Status: Acute Qualifiers: Altered mental status type: transient alteration of awareness Qualified Code(s): R40.4 - Transient alteration of awareness (6) Hypokalemia Status: Acute Plan: POTASSIUM REPLACEMENT PER PROTOCOL (7) Hypoalbuminemia Status: Acute Plan: ALBUMIN 25% IV DAILY, CONTINUE TO MONITOR
[2019-06-27 10:06] VITALS: BP 144/68
== END 2019-06-27 11:12 | DRG 292 ==
LOC: ER 06:57 → MED/SURG 08:37
PROVIDERS: ADMIT Internal Medicine; ATTEND Internal Medicine
DX: R40.4 Transient alteration of awareness; R26.89 Other abnormalities of gait and mobility; R06.02 Shortness of breath; B95.62 Methicillin resistant Staphylococcus aureus infection as the cause of diseases classified elsewhere; Z79.01 Long term (current) use of anticoagulants; E03.8 Other specified hypothyroidism; L03.116 Cellulitis of left lower limb; R60.0 Localized edema; B96.29 Other Escherichia coli [E. coli] as the cause of diseases classified elsewhere; M16.11 Unilateral primary osteoarthritis, right hip; I50.9 Heart failure, unspecified; J90 Pleural effusion, not elsewhere classified; E87.6 Hypokalemia; N39.0 Urinary tract infection, site not specified; I11.0 Hypertensive heart disease with heart failure; R62.7 Adult failure to thrive; E88.09 Other disorders of plasma-protein metabolism, not elsewhere classified; R94.31 Abnormal electrocardiogram [ECG] [EKG]; I16.0 Hypertensive urgency
CPT/HCPCS: 36415; 36600; 51702; 70450; 71010; 71045; 74022; 80048; 80053; 81001; 81003; 82140; 82550; 82553; 82803; 83605; 83735; 83880; 84132; 84443; 84484; 85025; 85610; 87070; 87075; 87077; 87086; 87088; 87186; 93005; 93306; 93970; 94660; 94760; 96365; 96374; 96375; 97110; 97112; 97116; 97162; 97166; 97530; 97535; 99231; 99284; A4222; A4618; A7030; P9047; J0360; J0696; J0713; J1335; J1940; J2405; J3480; J3490; J7030; J7050; J7060

== ENCOUNTER 2019-09-05 15:18 | Inpatient (IN) ==
[2019-09-05] MEDS ORDERED: NS 1000 ML 1,000 ML IV SCH (17:10)
[2019-09-05 17:50] LABS: BILIRUBIN,URINE NEGATIVE (NEGATIVE); BLOOD/HEMOGLOBIN,URINE NEGATIVE (NEGATIVE); GLUCOSE, URINE NEGATIVE (NEGATIVE); KETONES,URINE NEGATIVE (NEGATIVE); LEUKOCYTE ESTERASE ,URINE 2+ (NEGATIVE); NITRITES,URINE NEGATIVE (NEGATIVE); PROTEIN,URINE NEGATIVE (NEGATIVE); UROBILINOGEN,URINE NORMAL (NORMAL)
[2019-09-05 17:59] LABS: APPEARANCE,URINE CLEAR (CLEAR); BACTERIA,URINE 1+ /HPF (NEGATIVE); COLOR,URINE YELLOW (YELLOW); RBC,URINE NONE SEEN /HPF (0-3); SQUAMOUS EPITHELIAL CELL,UR FEW /HPF (NEGATIVE)
[2019-09-05 18:00] LABS: YEAST,URINE FEW /HPF (NEGATIVE)
[2019-09-05 18:13] VITALS: BMI 17.3
--- NOTE | 2019-09-05 18:18 | RAD ---
History: Pain Exam: KUB Comparison: None Technique: A supine view the abdomen was obtained. Findings: The gas pattern is unremarkable. There is mild feces scattered in the colon. No renal stones are seen and there is no free air. There is a metallic prosthesis in the left hip which is in good position . There is moderately severe joint space narrowing in the right hip with moderate scoliosis. There is no free air. IMPRESSION: Mild constipation with a nonspecific gas pattern. Reported By:
[2019-09-05] MEDS: ZOFRAN INJ 4 MG VIAL IVP PRN ×2 (18:19→23:30)
[2019-09-05] MEDS: PROTONIX INJ 40 MG VIAL IVP SCH ×2 (18:21→20:53)
[2019-09-05] MEDS: PEPCID 20 MG IV PREMIX* 20 MG/50 ML BAG IV SCH ×2 (18:26→20:53)
[2019-09-05 18:38] LABS: BASOPHILS # (AUTO) 0.1 X10^3/uL (0.0-0.1); EOSINOPHILS % (AUTO) 0.5 % (0.9-2.9); HEMATOCRIT 39.8 % (36.0-47.0); HEMOGLOBIN 13.6 g/dL (12.0-16.0); LYMPHOCYTES # (AUTO) 2.2 X10^3/uL (1.3-2.9); MEAN CORPUSCULAR HEMOGLOBIN 29.6 pg (27.0-34.0); MEAN CORPUSCULAR HGB CONC 34.2 g/dL (33.0-35.0); MEAN CORPUSCULAR VOLUME 86.6 fL (80.0-100.0); MEAN PLATELET VOLUME 9.6 fL (7.4-11.0); MONOCYTES # (AUTO) 0.6 x10^3/uL (0.3-0.8); MONOCYTES % (AUTO) 8.5 % (0.0-13.0); NEUTROPHILS # (AUTO) 4.1 x10^3/uL (2.2-4.8); PLATELET COUNT 236 X10^3/uL (150.0-450.0); RED BLOOD COUNT 4.59 X10^6/uL (3.5-5.4); RED CELL DISTRIBUTION WIDTH 14.6 % (11.6-16.5)
[2019-09-05 18:47] LABS: ALANINE AMINOTRANSFERASE 16 Units/L (12-78); ALBUMIN 3.8 g/dL (3.4-5.0); ALKALINE PHOSPHATASE 224 Units/L (46-116); ASPARTATE AMINO TRANSFERASE 37 Units/L (15-37); BLOOD UREA NITROGEN 70 mg/dL (7-18); CALCIUM 10.3 mg/dL (8.5-10.1); CARBON DIOXIDE 37.9 mmol/L (21-32); CHLORIDE 91 mmol/L (98-107); COR NA(FOR HYPERGLY) 135 mmol/L (136-145); CREATININE 1.83 mg/dL (0.55-1.02); SODIUM 134 mmol/L (136-145); TOTAL PROTEIN 8.4 g/dL (6.4-8.2); eGFR NON BLACK RACES 28 (>60)
[2019-09-05] MEDS ORDERED: MICRO K EXTEN CAP 10 MEQ PO PRN (19:06)
[2019-09-05] MEDS ORDERED: POTASSIUM CHL 60 MEQ/NS 0.45% 500 ML IV PRN (19:06)
[2019-09-05] MEDS ORDERED: K-RIDER 10 MEQ/NS 100 ML 10 MEQ/100 ML BAG IV PRN (19:06)
[2019-09-05] MEDS ORDERED: MAGNESIUM SULFATE 1 GRAM/100 mL PREMIX 1 GM/100 ML BAG IV PRN (19:06)
[2019-09-05] MEDS ORDERED: KLOR-CON PO PRN (19:06)
[2019-09-05] MEDS ORDERED: POTASSIUM CHLORIDE LIQ 20 MEQ UDC PO PRN (19:06)
[2019-09-05] MEDS ORDERED: POTASSIUM CHL 40 MEQ/NS 0.45% 500 ML IV PRN (19:06)
[2019-09-05] MEDS ORDERED: NS + KCL 20 MEQ/L 1,000 ML IV ONE (19:27)
[2019-09-05] MEDS: NS + KCL 20 MEQ/L 1,000 ML IV SCH (19:42)
[2019-09-05] MEDS: K-DUR TAB 20 MEQ PO PRN ×2 (20:46→23:30)
[2019-09-06] MEDS: NS + KCL 20 MEQ/L 1,000 ML IV SCH ×4 (04:17→20:48)
[2019-09-06 04:49] LABS: BASOPHILS # (AUTO) 0.1 X10^3/uL (0.0-0.1); BASOPHILS % (AUTO) 0.8 % (0.2-1.0); EOSINOPHILS % (AUTO) 0.6 % (0.9-2.9); HEMATOCRIT 36.5 % (36.0-47.0); HEMOGLOBIN 12.5 g/dL (12.0-16.0); LYMPHOCYTES # (AUTO) 2.4 X10^3/uL (1.3-2.9); LYMPHOCYTES % (AUTO) 33.2 % (21.0-51.0); MEAN CORPUSCULAR HEMOGLOBIN 29.8 pg (27.0-34.0); MEAN CORPUSCULAR HGB CONC 34.3 g/dL (33.0-35.0); MEAN CORPUSCULAR VOLUME 87.1 fL (80.0-100.0); MONOCYTES # (AUTO) 0.8 x10^3/uL (0.3-0.8); MONOCYTES % (AUTO) 11.3 % (0.0-13.0); NEUTROPHILS # (AUTO) 3.9 x10^3/uL (2.2-4.8); NEUTROPHILS % (AUTO) 54.1 % (42.0-75.0); PLATELET COUNT 224 X10^3/uL (150.0-450.0); RED BLOOD COUNT 4.19 X10^6/uL (3.5-5.4); RED CELL DISTRIBUTION WIDTH 14.4 % (11.6-16.5); WHITE BLOOD COUNT 7.2 X10^3/uL (3.6-10.0)
[2019-09-06 05:05] LABS: ALANINE AMINOTRANSFERASE 15 Units/L (12-78); ALBUMIN 3.3 g/dL (3.4-5.0); ALKALINE PHOSPHATASE 191 Units/L (46-116); AMYLASE 119 Units/L (25-115); ASPARTATE AMINO TRANSFERASE 33 Units/L (15-37); BLOOD UREA NITROGEN 64 mg/dL (7-18); CALCIUM 9.9 mg/dL (8.5-10.1); CARBON DIOXIDE 34.3 mmol/L (21-32); CHLORIDE 99 mmol/L (98-107); COR CA(FOR HYPOALB) 10.5 mg/dL (8.5-10.1); CREATININE 1.61 mg/dL (0.55-1.02); LIPASE 249 Units/L (73-393); SODIUM 138 mmol/L (136-145); TOTAL PROTEIN 7.3 g/dL (6.4-8.2); eGFR NON BLACK RACES 32 (>60)
[2019-09-06] MEDS: PROTONIX INJ 40 MG VIAL IVP SCH ×2 (08:36→20:49)
[2019-09-06] MEDS: PEPCID 20 MG IV PREMIX* 20 MG/50 ML BAG IV SCH ×2 (08:41→20:49)
[2019-09-06] MEDS: MIRALAX POWDER (1 DOSE 17 G) PO SCH (10:38)
[2019-09-06] MEDS: MILK OF MAGNESIA PO SCH ×5 (10:38→22:19)
[2019-09-06] MEDS: ROCEPHIN VIAL 1 GRAM 1 G in NS 100 ML IV + SPIKE MINIBAG* 100 ML IV SCH (10:38)
[2019-09-06] MEDS: COLACE CAP 100 MG PO SCH ×3 (10:38→22:18)
--- NOTE | 2019-09-06 11:40 | DR.UPDATE ---
H&P Update History and Physical Update: History and Physical reviewed and patient examined. Changes noted: Yes with the following: PRESENTED TO THE OFFICE TODAY WITH COMPLAINTS OF NAUSEA AND VOMITING. SHE REPORTS THAT SYMPTOMS STARTED YESTERDAY AND HAVE PROGRESSIVELY GOTTEN WORSE. SHE HAS BEEN TAKING ZOFRAN AT HOME WITHOUT IMPROVEMENT IN SYMPTOMS. SHE ALSO REPORTS MILD ABDOMINAL PAIN. WE ADMITTED PATIENT FOR FURTHER EVALUATION AND TREATMENT OF INTRACTABLE NAUSEA AND VOMITING AND ABDOMINAL PAIN. ON ADMISSION, WE WILL START NORMAL SALINE WITH 20MEQ KCL AT 75ML/HR, IV PEPCID, IV PROTONIX, AND ZOFRAN 4MG IV Q4H PRN NAUSEA. WE WILL OBTAIN LABS, URINALYSIS, AND A KUB. OTHERWISE, WE WILL FOLLOW UP WITH AM LABS AND CONTINUE TO MONITOR. Prescription drug monitoring program results: PDMP was not reviewed H&P Reviewed: Yes Patient was examined?: Yes
[2019-09-06] MEDS ORDERED: FLEET ENEMA ADULT ONE (14:02)
[2019-09-06] MEDS: MICRO K EXTEN CAP 10 MEQ PO SCH ×3 (14:37→22:19)
[2019-09-06] MEDS: ELIQUIS PO SCH ×3 (14:37→22:18)
[2019-09-06] MEDS: TOPROL XL PO SCH (14:38)
[2019-09-06] MEDS: SYNTHROID 50 mcg TAB PO SCH (14:38)
[2019-09-06] MEDS: NEURONTIN CAP 100 MG PO SCH ×3 (14:38→22:21)
[2019-09-06] MEDS: ULTRAM PO SCH ×2 (20:53→22:16)
[2019-09-06] MEDS: CRESTOR TAB 10 MG PO SCH ×2 (20:53→22:20)
[2019-09-07] MEDS: NEURONTIN CAP 100 MG PO SCH ×2 (01:24→21:53)
[2019-09-07] MEDS: ULTRAM PO SCH ×3 (01:26→21:53)
[2019-09-07] MEDS: NS + KCL 20 MEQ/L 1,000 ML IV SCH ×3 (04:34→20:48)
[2019-09-07 04:47] LABS: BASOPHILS # (AUTO) 0.1 X10^3/uL (0.0-0.1); BASOPHILS % (AUTO) 0.8 % (0.2-1.0); EOSINOPHILS % (AUTO) 0.7 % (0.9-2.9); HEMATOCRIT 33.2 % (36.0-47.0); HEMOGLOBIN 11.4 g/dL (12.0-16.0); LYMPHOCYTES # (AUTO) 2.3 X10^3/uL (1.3-2.9); LYMPHOCYTES % (AUTO) 32.3 % (21.0-51.0); MEAN CORPUSCULAR HEMOGLOBIN 29.9 pg (27.0-34.0); MEAN CORPUSCULAR HGB CONC 34.4 g/dL (33.0-35.0); MEAN CORPUSCULAR VOLUME 86.9 fL (80.0-100.0); MEAN PLATELET VOLUME 9.5 fL (7.4-11.0); MONOCYTES # (AUTO) 0.8 x10^3/uL (0.3-0.8); MONOCYTES % (AUTO) 10.8 % (0.0-13.0); NEUTROPHILS % (AUTO) 55.4 % (42.0-75.0); PLATELET COUNT 194 X10^3/uL (150.0-450.0); RED BLOOD COUNT 3.82 X10^6/uL (3.5-5.4); RED CELL DISTRIBUTION WIDTH 14.7 % (11.6-16.5); WHITE BLOOD COUNT 7.3 X10^3/uL (3.6-10.0)
[2019-09-07 04:56] LABS: ALANINE AMINOTRANSFERASE 15 Units/L (12-78); ALBUMIN 2.9 g/dL (3.4-5.0); ALKALINE PHOSPHATASE 168 Units/L (46-116); ASPARTATE AMINO TRANSFERASE 32 Units/L (15-37); BLOOD UREA NITROGEN 39 mg/dL (7-18); CALCIUM 9.6 mg/dL (8.5-10.1); CHLORIDE 105 mmol/L (98-107); COR CA(FOR HYPOALB) 10.5 mg/dL (8.5-10.1); CREATININE 1.28 mg/dL (0.55-1.02); SODIUM 142 mmol/L (136-145); TOTAL PROTEIN 6.5 g/dL (6.4-8.2); eGFR NON BLACK RACES 42 (>60)
--- NOTE | 2019-09-07 06:54 | RAD ---
HISTORY: Hypokalemia, constipation Study: KUB Comparison: 09/05/2019 Findings: Evaluation of the abdomen demonstrates a normal bowel gas pattern. A minimal amount of retained fecal material within the rectosigmoid colon is observed. No pathological soft tissue mass or calcification can be observed. The bony structures are grossly intact but demonstrate severe scoliotic curvature of the lumbar spine deviating to the right. IMPRESSION: 1. No evidence for acute abdominal pathology identified. Reported By:
[2019-09-07] MEDS: PEPCID 20 MG IV PREMIX* 20 MG/50 ML BAG IV SCH (10:27)
[2019-09-07] MEDS: MIRALAX POWDER (1 DOSE 17 G) PO SCH (10:27)
[2019-09-07] MEDS: PROTONIX INJ 40 MG VIAL IVP SCH ×2 (10:27→21:07)
[2019-09-07] MEDS: COLACE CAP 100 MG PO SCH ×2 (10:28→22:00)
[2019-09-07] MEDS: ELIQUIS PO SCH ×2 (10:28→21:54)
[2019-09-07] MEDS: ROCEPHIN VIAL 1 GRAM 1 G in NS 100 ML IV + SPIKE MINIBAG* 100 ML IV SCH (10:28)
[2019-09-07] MEDS: SYNTHROID 50 mcg TAB PO SCH (10:29)
[2019-09-07] MEDS: MICRO K EXTEN CAP 10 MEQ PO SCH ×2 (10:30→21:56)
[2019-09-07] MEDS: MILK OF MAGNESIA PO SCH (10:30)
[2019-09-07] MEDS: TOPROL XL PO SCH (10:35)
--- NOTE | 2019-09-07 11:05 | PCM.PROG ---
Progress Note - Progress Note for Day of Date of Exam: 09/06/19 - Subjective Subjective: WAS ADMITTED FOR INTRACTABLE NAUSEA AND VOMITING AND ABDOMINAL PAIN. TODAY, SHE IS ALERT AND ORIENTED, LYING IN BED ON MORNING ROUNDS. SHE REPORTS WEAKNESS TODAY AND CONTINUE WITH NAUSEA AND MILD ABDOMINAL PAIN. ON EXAMINATION, HEART IS REGULAR IN RATE AND RHYTHM. BILATERAL LUNGS ARE NOTED WITH DIMINISHED LUNG SOUNDS THROUGHOUT. ABDOMEN IS DISTENDED AND NOTED WITH HYPOACTIVE BOWEL SOUNDS. HER VITALS THIS MORNING ARE: 97.6-71-18-98%-134/63. LABS WERE OBTAINED. ABNORMAL LAB VALUES INCLUDE THE FOLLOWING: CARBON DIOXIDE 34.3, BUN 64, CREATININE 1.61, GLUCOSE 101, ALK PHOS 191, ALBUMIN 3.3, AMYLASE 119. URINE CULTURE IS PENDING, BUT PRELIMINARY CULTURE REPORTS GRAM NEGATIVE RODS. A KUB WAS OBTAINED ON ADMISSION AND REVEALED MILD CONSTIPATION WITH A NONSPECIFIC GAS PATTERN. TODAY, WE WILL START A BOWEL REGIMEN WITH MIRALAX, MILK OF MAGNESIA, AND COLACE. WE WILL ALSO START ROCEPHIN 1G IV DAILY FOR THE UTI. OTHERWISE, WE WILL CONTINUE WITH IV FLUIDS, THE POTASSIUM PROTOCOL, AND ZOFRAN. WE PLAN TO FOLLOW UP WITH AM LABS AND CONTINUE TO MONITOR. - Past Medical Family Social History Allergies: Allergies codeine Allergy (Verified 06/15/19 07:18) - Review of Systems ROS: No change since H&P - Vital Signs and I&O's Vital Signs: Temperature 97.8 F Pulse Rate [Right Brachial] 58 Respiratory Rate 16 Blood Pressure [Left Arm] 146/68 Blood Pressure [Right Arm] 129/63 Blood Pressure 128/63 O2 Sat by Pulse Oximetry 100 Intake and Output: Intake & Output 09/04/19 09/05/19 09/06/19 09/07/19 11:59 11:59 11:59 11:59 Intake Total 1365 / 1365 1460 / 1460 Balance 1365 / 1365 1460 / 1460 - Physical Exam Oriented: Normal Eyes: Normal Ear: Normal Nose: Normal Throat: Normal Respiratory: Generalized, Diminished Cardiovascular: Normal : Normal Auscultation: Bowel Sounds: Decreased Palpation: Normal Tenderness: Diffuse Skin: Decreased Turgur Musculoskeletal: Normal Psychiatric: Normal Mood Description: Calm Affect: Normal Speech Pattern: Clear, Appropriate - Laboratory and Diagnostics Result Diagrams: 09/07/19 04:00 09/07/19 04:00 Labs: 09/05/19 17:40 Urine,Clean Catch Urine Culture - Final [facility] WBC 7.3 X10^3/uL (3.6-10.0) 09/07/19 04:00 RBC 3.82 X10^6/uL (3.5-5.4) 09/07/19 04:00 Hgb 11.4 g/dL (12.0-16.0) L 09/07/19 04:00 Hct 33.2 % (36.0-47.0) L 09/07/19 04:00 MCV 86.9 fL (80.0-100.0) 09/07/19 04:00 MCH 29.9 pg (27.0-34.0) 09/07/19 04:00 MCHC 34.4 g/dL (33.0-35.0) 09/07/19 04:00 RDW 14.7 % (11.6-16.5) 09/07/19 04:00 Plt Count 194 X10^3/uL (150.0-450.0) 09/07/19 04:00 MPV 9.5 fL (7.4-11.0) 09/07/19 04:00 Neut % (Auto) 55.4 % (42.0-75.0) 09/07/19 04:00 Lymph % (Auto) 32.3 % (21.0-51.0) 09/07/19 04:00 [place] % (Auto) 10.8 % (0.0-13.0) 09/07/19 04:00 Eos % (Auto) 0.7 % (0.9-2.9) L 09/07/19 04:00 Baso % (Auto) 0.8 % (0.2-1.0) 09/07/19 04:00 Neut # (Auto) 4.0 x10^3/uL (2.2-4.8) 09/07/19 04:00 Lymph # (Auto) 2.3 X10^3/uL (1.3-2.9) 09/07/19 04:00 [place] # (Auto) 0.8 x10^3/uL (0.3-0.8) 09/07/19 04:00 Eos # (Auto) 0.0 x10^3/uL (0.0-0.2) 09/07/19 04:00 Baso # (Auto) 0.1 X10^3/uL (0.0-0.1) 09/07/19 04:00 Absolute Nucleated RBC 0.1 /100WBC 09/07/19 04:00 Sodium 142 mmol/L (136-145) 09/07/19 04:00 Corrected Sodium TNP 09/07/19 04:00 Potassium 4.5 mmol/L (3.5-5.1) 09/07/19 04:00 Chloride 105 mmol/L (98-107) 09/07/19 04:00 Carbon Dioxide 32.0 mmol/L (21-32) 09/07/19 04:00 BUN 39 mg/dL (7-18) H 09/07/19 04:00 Creatinine 1.28 mg/dL (0.55-1.02) H 09/07/19 04:00 Est GFR (MDRD) Af Amer 51 (>60) L 09/07/19 04:00 Est GFR (MDRD) Non-Af 42 (>60) L 09/07/19 04:00 Glucose 89 mg/dL (65-99) 09/07/19 04:00 Calcium 9.6 mg/dL (8.5-10.1) 09/07/19 04:00 Corrected Calcium 10.5 mg/dL (8.5-10.1) H 09/07/19 04:00 Magnesium 2.0 mg/dL (1.7-2.9) 09/05/19 17:56 Total Bilirubin 0.90 mg/dL (0.2-1.0) 09/07/19 04:00 AST 32 Units/L (15-37) 09/07/19 04:00 ALT 15 Units/L (12-78) 09/07/19 04:00 Alkaline Phosphatase 168 Units/L (46-116) H 09/07/19 04:00 Total Protein 6.5 g/dL (6.4-8.2) 09/07/19 04:00 Albumin 2.9 g/dL (3.4-5.0) L 09/07/19 04:00 Globulin 3.6 g/dL (2.5-4.5) 09/07/19 04:00 Albumin/Globulin Ratio 0.8 Ratio (1.1-2.1) L 09/07/19 04:00 Amylase 119 Units/L (25-115) H 09/06/19 03:53 Lipase 249 Units/L (73-393) 09/06/19 03:53 Specimen Type Clean catch urine 09/05/19 17:40 Urine Color Yellow (YELLOW) 09/05/19 17:40 Urine Appearance Clear (CLEAR) 09/05/19 17:40 Urine pH 6.0 (5.0 - 8.0) 09/05/19 17:40 Ur Specific [place] 1.010 (1.000-1.030) 09/05/19 17:40 Urine Protein Negative (NEGATIVE) 09/05/19 17:40 Urine Glucose (UA) Negative (NEGATIVE) 09/05/19 17:40 Urine Ketones Negative (NEGATIVE) 09/05/19 17:40 Urine Occult Blood Negative (NEGATIVE) 09/05/19 17:40 Urine Nitrite Negative (NEGATIVE) 09/05/19 17:40 Urine Bilirubin Negative (NEGATIVE) 09/05/19 17:40 Urine Urobilinogen Normal (NORMAL) 09/05/19 17:40 Ur Leukocyte Esterase 2+ (NEGATIVE) 09/05/19 17:40 Urine RBC None seen /HPF (0-3) 09/05/19 17:40 Urine WBC 10-20 /HPF (0-5) A 09/05/19 17:40 Ur Squamous Epith Cells Few /HPF (NEGATIVE) 09/05/19 17:40 Urine Bacteria 1+ /HPF (NEGATIVE) 09/05/19 17:40 Urine Yeast Few /HPF (NEGATIVE) 09/05/19 17:40 Ur Culture Indicated? Yes/culture set up 09/05/19 17:40 - Plan (1) Acute UTI (urinary tract infection) Status: Acute (2) Constipation Status: Acute Qualifiers: Constipation type: unspecified constipation type Qualified Code(s): K59.00 - Constipation, unspecified (3) Hypokalemia Status: Acute (4) Intractable nausea and vomiting Status: Acute (5) Generalized weakness Status: Acute
[2019-09-07] MEDS: CHRONULAC PO SCH ×3 (13:54→17:13)
[2019-09-07] MEDS: ANTIVERT TAB 25 MG PO SCH ×2 (13:55→21:55)
--- NOTE | 2019-09-07 18:23 | PCM.PROG ---
Progress Note - Progress Note for Day of Date of Exam: 09/07/19 - Subjective Subjective: IS BEING TREATED FOR INTRACTABLE NAUSEA/ VOMITING, ABDOMINAL PAIN, AND A UTI. TODAY, SHE IS ALERT AND ORIENTED, LYING IN BED ON MORNING ROUNDS. SHE REPORTS WEAKNESS AND DIZZINESS TODAY AND CONTINUE WITH NAUSEA AND MILD ABDOMINAL PAIN. SHE DENIES A LARGE BOWEL MOVEMENT SINCE YESTERDAY. ON EXAMINATION, HEART IS REGULAR IN RATE AND RHYTHM. BILATERAL LUNGS ARE NOTED WITH DIMINISHED LUNG SOUNDS THROUGHOUT. ABDOMEN IS DISTENDED AND NOTED WITH HYPOACTIVE BOWEL SOUNDS. HER VITALS THIS MORNING ARE: 97.8-58-18-100%-146/68. LABS WERE OBTAINED. ABNORMAL LAB VALUES INCLUDE THE FOLLOWING: HGB 11.4, HCT 33.2, BUN 39, CREATININE 1.28, ALK PHOS 168, ALBUMIN 2.9. URINE CULTURE REPORTS GROWTH OF PROTEUS MIRABILIS. IT IS SENSITIVE TO THE ROCEPHIN THAT SHE IS CURRENTLY RECEIVING. TODAY, WE WILL DISCONTINUE THE MILK OF MAGNESIA AND START LACTULOSE 30ML PO QID UNTIL SHE HAS A BOWEL MOVEMENT. WE WILL ALSO START MECLIZINE 12.5MG PO BID. OTHERWISE, WE WILL CONTINUE WITH IV FLUIDS, THE POTASSIUM PROTOCOL, AND ZOFRAN. WE PLAN TO FOLLOW UP WITH AM LABS AND CONTINUE TO MONITOR. - Past Medical Family Social History Allergies: Allergies codeine Allergy (Verified 06/15/19 07:18) - Review of Systems ROS: No change since H&P - Vital Signs and I&O's Vital Signs: Temperature 97.5 F Pulse Rate [Right Brachial] 88 Respiratory Rate 20 Blood Pressure [Left Arm] 163/78 Blood Pressure [Right Arm] 128/53 Blood Pressure 128/63 O2 Sat by Pulse Oximetry 94 Intake and Output: Intake & Output 09/05/19 09/06/19 09/07/19 09/08/19 11:59 11:59 11:59 11:59 Intake Total 1365 / 1365 1460 / 1460 5395 / 5395 Balance 1365 / 1365 1460 / 1460 5395 / 5395 - Physical Exam Oriented: Normal Eyes: Normal Ear: Normal Nose: Normal Throat: Normal Respiratory: Generalized, Diminished Cardiovascular: Normal : Normal Auscultation: Bowel Sounds: Decreased Tenderness: Diffuse Skin: Decreased Turgur Musculoskeletal: Normal Psychiatric: Normal Mood Description: Calm Affect: Normal Speech Pattern: Clear, Appropriate - Laboratory and Diagnostics Result Diagrams: 09/07/19 04:00 09/07/19 04:00 Labs: 09/05/19 17:40 Urine,Clean Catch Urine Culture - Final [facility] WBC 7.3 X10^3/uL (3.6-10.0) 09/07/19 04:00 RBC 3.82 X10^6/uL (3.5-5.4) 09/07/19 04:00 Hgb 11.4 g/dL (12.0-16.0) L 09/07/19 04:00 Hct 33.2 % (36.0-47.0) L 09/07/19 04:00 MCV 86.9 fL (80.0-100.0) 09/07/19 04:00 MCH 29.9 pg (27.0-34.0) 09/07/19 04:00 MCHC 34.4 g/dL (33.0-35.0) 09/07/19 04:00 RDW 14.7 % (11.6-16.5) 09/07/19 04:00 Plt Count 194 X10^3/uL (150.0-450.0) 09/07/19 04:00 MPV 9.5 fL (7.4-11.0) 09/07/19 04:00 Neut % (Auto) 55.4 % (42.0-75.0) 09/07/19 04:00 Lymph % (Auto) 32.3 % (21.0-51.0) 09/07/19 04:00 [place] % (Auto) 10.8 % (0.0-13.0) 09/07/19 04:00 Eos % (Auto) 0.7 % (0.9-2.9) L 09/07/19 04:00 Baso % (Auto) 0.8 % (0.2-1.0) 09/07/19 04:00 Neut # (Auto) 4.0 x10^3/uL (2.2-4.8) 09/07/19 04:00 Lymph # (Auto) 2.3 X10^3/uL (1.3-2.9) 09/07/19 04:00 [place] # (Auto) 0.8 x10^3/uL (0.3-0.8) 09/07/19 04:00 Eos # (Auto) 0.0 x10^3/uL (0.0-0.2) 09/07/19 04:00 Baso # (Auto) 0.1 X10^3/uL (0.0-0.1) 09/07/19 04:00 Absolute Nucleated RBC 0.1 /100WBC 09/07/19 04:00 Sodium 142 mmol/L (136-145) 09/07/19 04:00 Corrected Sodium TNP 09/07/19 04:00 Potassium 4.5 mmol/L (3.5-5.1) 09/07/19 04:00 Chloride 105 mmol/L (98-107) 09/07/19 04:00 Carbon Dioxide 32.0 mmol/L (21-32) 09/07/19 04:00 BUN 39 mg/dL (7-18) H 09/07/19 04:00 Creatinine 1.28 mg/dL (0.55-1.02) H 09/07/19 04:00 Est GFR (MDRD) Af Amer 51 (>60) L 09/07/19 04:00 Est GFR (MDRD) Non-Af 42 (>60) L 09/07/19 04:00 Glucose 89 mg/dL (65-99) 09/07/19 04:00 Calcium 9.6 mg/dL (8.5-10.1) 09/07/19 04:00 Corrected Calcium 10.5 mg/dL (8.5-10.1) H 09/07/19 04:00 Magnesium 2.0 mg/dL (1.7-2.9) 09/05/19 17:56 Total Bilirubin 0.90 mg/dL (0.2-1.0) 09/07/19 04:00 AST 32 Units/L (15-37) 09/07/19 04:00 ALT 15 Units/L (12-78) 09/07/19 04:00 Alkaline Phosphatase 168 Units/L (46-116) H 09/07/19 04:00 Total Protein 6.5 g/dL (6.4-8.2) 09/07/19 04:00 Albumin 2.9 g/dL (3.4-5.0) L 09/07/19 04:00 Globulin 3.6 g/dL (2.5-4.5) 09/07/19 04:00 Albumin/Globulin Ratio 0.8 Ratio (1.1-2.1) L 09/07/19 04:00 Amylase 119 Units/L (25-115) H 09/06/19 03:53 Lipase 249 Units/L (73-393) 09/06/19 03:53 Specimen Type Clean catch urine 09/05/19 17:40 Urine Color Yellow (YELLOW) 09/05/19 17:40 Urine Appearance Clear (CLEAR) 09/05/19 17:40 Urine pH 6.0 (5.0 - 8.0) 09/05/19 17:40 Ur Specific [place] 1.010 (1.000-1.030) 09/05/19 17:40 Urine Protein Negative (NEGATIVE) 09/05/19 17:40 Urine Glucose (UA) Negative (NEGATIVE) 09/05/19 17:40 Urine Ketones Negative (NEGATIVE) 09/05/19 17:40 Urine Occult Blood Negative (NEGATIVE) 09/05/19 17:40 Urine Nitrite Negative (NEGATIVE) 09/05/19 17:40 Urine Bilirubin Negative (NEGATIVE) 09/05/19 17:40 Urine Urobilinogen Normal (NORMAL) 09/05/19 17:40 Ur Leukocyte Esterase 2+ (NEGATIVE) 09/05/19 17:40 Urine RBC None seen /HPF (0-3) 09/05/19 17:40 Urine WBC 10-20 /HPF (0-5) A 09/05/19 17:40 Ur Squamous Epith Cells Few /HPF (NEGATIVE) 09/05/19 17:40 Urine Bacteria 1+ /HPF (NEGATIVE) 09/05/19 17:40 Urine Yeast Few /HPF (NEGATIVE) 09/05/19 17:40 Ur Culture Indicated? Yes/culture set up 09/05/19 17:40 - Plan (1) Acute UTI (urinary tract infection) Status: Acute (2) Constipation Status: Acute Qualifiers: Constipation type: unspecified constipation type Qualified Code(s): K59.00 - Constipation, unspecified (3) Hypokalemia Status: Acute (4) Intractable nausea and vomiting Status: Acute (5) Generalized weakness Status: Acute
[2019-09-07] MEDS: ZOFRAN INJ 4 MG VIAL IVP PRN ×2 (20:48→21:57)
[2019-09-07] MEDS: CRESTOR TAB 10 MG PO SCH (21:55)
[2019-09-07] MEDS: PEPCID TAB 20 MG PO SCH (21:56)
[2019-09-08] MEDS: NS + KCL 20 MEQ/L 1,000 ML IV SCH ×4 (02:57→21:42)
[2019-09-08 06:22] LABS: BASOPHILS # (AUTO) 0.1 X10^3/uL (0.0-0.1); BASOPHILS % (AUTO) 0.9 % (0.2-1.0); EOSINOPHILS # (AUTO) 0.4 x10^3/uL (0.0-0.2); EOSINOPHILS % (AUTO) 5.7 % (0.9-2.9); HEMATOCRIT 32.1 % (36.0-47.0); LYMPHOCYTES # (AUTO) 2.5 X10^3/uL (1.3-2.9); MEAN CORPUSCULAR HGB CONC 34.3 g/dL (33.0-35.0); MEAN CORPUSCULAR VOLUME 87.6 fL (80.0-100.0); MONOCYTES # (AUTO) 0.7 x10^3/uL (0.3-0.8); NEUTROPHILS # (AUTO) 2.9 x10^3/uL (2.2-4.8); NEUTROPHILS % (AUTO) 44.4 % (42.0-75.0); PLATELET COUNT 167 X10^3/uL (150.0-450.0); RED BLOOD COUNT 3.66 X10^6/uL (3.5-5.4); RED CELL DISTRIBUTION WIDTH 14.4 % (11.6-16.5); WHITE BLOOD COUNT 6.6 X10^3/uL (3.6-10.0)
[2019-09-08 06:35] LABS: ALANINE AMINOTRANSFERASE 12 Units/L (12-78); ALBUMIN 2.6 g/dL (3.4-5.0); ALKALINE PHOSPHATASE 166 Units/L (46-116); ASPARTATE AMINO TRANSFERASE 29 Units/L (15-37); BLOOD UREA NITROGEN 26 mg/dL (7-18); CALCIUM 9.5 mg/dL (8.5-10.1); CHLORIDE 109 mmol/L (98-107); COR CA(FOR HYPOALB) 10.6 mg/dL (8.5-10.1); CREATININE 1.06 mg/dL (0.55-1.02); SODIUM 142 mmol/L (136-145); TOTAL PROTEIN 6.1 g/dL (6.4-8.2); eGFR NON BLACK RACES 52 (>60)
[2019-09-08] MEDS: COLACE CAP 100 MG PO SCH ×2 (08:21→20:45)
[2019-09-08] MEDS: MIRALAX POWDER (1 DOSE 17 G) PO SCH (08:22)
[2019-09-08] MEDS: ANTIVERT TAB 25 MG PO SCH (08:22)
[2019-09-08] MEDS: MICRO K EXTEN CAP 10 MEQ PO SCH ×2 (08:22→20:55)
[2019-09-08] MEDS: ELIQUIS PO SCH ×2 (08:22→20:45)
[2019-09-08] MEDS: SYNTHROID 50 mcg TAB PO SCH (08:23)
[2019-09-08] MEDS: PROTONIX INJ 40 MG VIAL IVP SCH ×2 (08:23→20:45)
[2019-09-08] MEDS: ROCEPHIN VIAL 1 GRAM 1 G in NS 100 ML IV + SPIKE MINIBAG* 100 ML IV SCH (08:23)
[2019-09-08] MEDS: PEPCID TAB 20 MG PO SCH ×2 (08:23→20:45)
[2019-09-08] MEDS: TOPROL XL PO SCH (08:24)
[2019-09-08] MEDS: ULTRAM PO SCH ×2 (08:24→20:46)
[2019-09-08] MEDS: CRESTOR TAB 10 MG PO SCH (20:45)
[2019-09-08] MEDS: NEURONTIN CAP 100 MG PO SCH (20:45)
[2019-09-09] MEDS: NS + KCL 20 MEQ/L 1,000 ML IV SCH ×3 (04:25→20:43)
[2019-09-09 05:04] LABS: BASOPHILS # (AUTO) 0.1 X10^3/uL (0.0-0.1); EOSINOPHILS # (AUTO) 0.5 x10^3/uL (0.0-0.2); EOSINOPHILS % (AUTO) 8.2 % (0.9-2.9); HEMOGLOBIN 10.4 g/dL (12.0-16.0); LYMPHOCYTES # (AUTO) 2.1 X10^3/uL (1.3-2.9); LYMPHOCYTES % (AUTO) 36.2 % (21.0-51.0); MEAN CORPUSCULAR HEMOGLOBIN 29.9 pg (27.0-34.0); MEAN CORPUSCULAR HGB CONC 33.6 g/dL (33.0-35.0); MEAN PLATELET VOLUME 9.9 fL (7.4-11.0); MONOCYTES # (AUTO) 0.5 x10^3/uL (0.3-0.8); MONOCYTES % (AUTO) 8.5 % (0.0-13.0); NEUTROPHILS # (AUTO) 2.7 x10^3/uL (2.2-4.8); NEUTROPHILS % (AUTO) 46.1 % (42.0-75.0); PLATELET COUNT 143 X10^3/uL (150.0-450.0); RED BLOOD COUNT 3.48 X10^6/uL (3.5-5.4); RED CELL DISTRIBUTION WIDTH 14.5 % (11.6-16.5); WHITE BLOOD COUNT 5.9 X10^3/uL (3.6-10.0)
[2019-09-09 05:28] LABS: ALANINE AMINOTRANSFERASE 14 Units/L (12-78); ALBUMIN 2.4 g/dL (3.4-5.0); ALKALINE PHOSPHATASE 147 Units/L (46-116); ASPARTATE AMINO TRANSFERASE 30 Units/L (15-37); BLOOD UREA NITROGEN 17 mg/dL (7-18); CALCIUM 9.4 mg/dL (8.5-10.1); CARBON DIOXIDE 26.7 mmol/L (21-32); CHLORIDE 109 mmol/L (98-107); COR CA(FOR HYPOALB) 10.7 mg/dL (8.5-10.1); CREATININE 0.89 mg/dL (0.55-1.02); SODIUM 141 mmol/L (136-145); TOTAL PROTEIN 5.7 g/dL (6.4-8.2); eGFR NON BLACK RACES > 60 (>60)
[2019-09-09] MEDS: MIRALAX POWDER (1 DOSE 17 G) PO SCH (09:46)
[2019-09-09] MEDS: PEPCID TAB 20 MG PO SCH ×2 (09:47→20:32)
[2019-09-09] MEDS: SYNTHROID 50 mcg TAB PO SCH (09:48)
[2019-09-09] MEDS: ELIQUIS PO SCH ×2 (09:49→20:32)
[2019-09-09] MEDS: TOPROL XL PO SCH (09:49)
[2019-09-09] MEDS: MICRO K EXTEN CAP 10 MEQ PO SCH ×2 (09:49→20:32)
[2019-09-09] MEDS: COLACE CAP 100 MG PO SCH ×2 (09:50→20:32)
[2019-09-09] MEDS: ROCEPHIN VIAL 1 GRAM 1 G in NS 100 ML IV + SPIKE MINIBAG* 100 ML IV SCH (09:51)
[2019-09-09] MEDS: PROTONIX INJ 40 MG VIAL IVP SCH ×2 (09:51→20:43)
[2019-09-09] MEDS: ULTRAM PO SCH ×3 (10:00→23:00)
[2019-09-09] MEDS: NEURONTIN CAP 100 MG PO SCH (20:32)
[2019-09-09] MEDS: CRESTOR TAB 10 MG PO SCH (20:32)
[2019-09-10] MEDS: NS + KCL 20 MEQ/L 1,000 ML IV SCH (04:37)
[2019-09-10 05:06] LABS: BASOPHILS % (AUTO) 0.5 % (0.2-1.0); EOSINOPHILS # (AUTO) 0.5 x10^3/uL (0.0-0.2); EOSINOPHILS % (AUTO) 7.8 % (0.9-2.9); HEMATOCRIT 28.7 % (36.0-47.0); HEMOGLOBIN 9.9 g/dL (12.0-16.0); LYMPHOCYTES # (AUTO) 2.3 X10^3/uL (1.3-2.9); LYMPHOCYTES % (AUTO) 38.9 % (21.0-51.0); MEAN CORPUSCULAR HEMOGLOBIN 29.9 pg (27.0-34.0); MEAN CORPUSCULAR HGB CONC 34.6 g/dL (33.0-35.0); MEAN CORPUSCULAR VOLUME 86.5 fL (80.0-100.0); MEAN PLATELET VOLUME 9.7 fL (7.4-11.0); MONOCYTES # (AUTO) 0.5 x10^3/uL (0.3-0.8); MONOCYTES % (AUTO) 8.2 % (0.0-13.0); NEUTROPHILS # (AUTO) 2.6 x10^3/uL (2.2-4.8); NEUTROPHILS % (AUTO) 44.6 % (42.0-75.0); PLATELET COUNT 134 X10^3/uL (150.0-450.0); RED BLOOD COUNT 3.32 X10^6/uL (3.5-5.4); RED CELL DISTRIBUTION WIDTH 14.7 % (11.6-16.5); WHITE BLOOD COUNT 5.9 X10^3/uL (3.6-10.0)
[2019-09-10 05:15] LABS: ALANINE AMINOTRANSFERASE 14 Units/L (12-78); ALBUMIN 2.3 g/dL (3.4-5.0); ALKALINE PHOSPHATASE 140 Units/L (46-116); ASPARTATE AMINO TRANSFERASE 28 Units/L (15-37); BLOOD UREA NITROGEN 13 mg/dL (7-18); CALCIUM 9.1 mg/dL (8.5-10.1); CARBON DIOXIDE 27.2 mmol/L (21-32); CHLORIDE 107 mmol/L (98-107); COR CA(FOR HYPOALB) 10.5 mg/dL (8.5-10.1); SODIUM 139 mmol/L (136-145); TOTAL PROTEIN 5.4 g/dL (6.4-8.2); eGFR NON BLACK RACES > 60 (>60)
[2019-09-10] MEDS: PROTONIX INJ 40 MG VIAL IVP SCH ×2 (09:34→10:40)
[2019-09-10] MEDS: ROCEPHIN VIAL 1 GRAM 1 G in NS 100 ML IV + SPIKE MINIBAG* 100 ML IV SCH ×2 (09:34→10:40)
[2019-09-10] MEDS: ULTRAM PO SCH (09:35)
[2019-09-10] MEDS: MICRO K EXTEN CAP 10 MEQ PO SCH (09:35)
[2019-09-10] MEDS: SYNTHROID 50 mcg TAB PO SCH (09:36)
[2019-09-10] MEDS: ELIQUIS PO SCH (09:36)
[2019-09-10] MEDS: PEPCID TAB 20 MG PO SCH (09:37)
[2019-09-10] MEDS: TOPROL XL PO SCH (09:37)
[2019-09-10] MEDS: MIRALAX POWDER (1 DOSE 17 G) PO SCH (09:37)
[2019-09-10] MEDS: COLACE CAP 100 MG PO SCH (09:37)
[2019-09-10 12:07] VITALS: BP 114/58
== END 2019-09-10 13:19 | disposition home health service (06) | DRG 641 ==
LOC: MED/SURG → OBSVTOIN 16:21
PROVIDERS: ADMIT Internal Medicine; ATTEND Internal Medicine
CPT/HCPCS: 36415; 74000; 74018; 80053; 81001; 82150; 83690; 83735; 84132; 85025; 87086; 87088; 87186; 97163; A4216; A4222; C9113; S0028; J0696; J2405; J7030; J7050